=== PATIENT | female | born 1985 | race Caucasian/White ===

== ENCOUNTER 2016-08-14 14:01 | Outpatient (CLI) | payer BC ==
[~2016-08-14] VITALS: Ht 160 cm; Wt 96.7 kg
[~2016-08-14 14:01] MED LIST: AMLO10TA4 PO; ASPI-586 PO; FOLI0.4T2 PO; HYDR-3714 PO; IBUP-1773 PO; LABE100T2 PO; LBT200T PO; METO25TA PO; MULT-974 PO; OMG1KC PO
[2016-08-14 14:10] VITALS: BP 138/89
== END 2016-08-14 14:30 | disposition home or self-care (01) ==
LOC: PREOP 14:01
PROVIDERS: ATTEND Obstetrics & Gynecology
DX: Z01.818 Encounter for other preprocedural examination (principal); Z11.2 Encounter for screening for other bacterial diseases; O34.211 Maternal care for low transverse scar from previous cesarean delivery; O24.419 Gestational diabetes mellitus in pregnancy, unspecified control
CPT/HCPCS: 87081

== ENCOUNTER 2016-08-18 06:13 | Inpatient (IN) | payer BC ==
[~2016-08-18] VITALS: Ht 160 cm; Wt 96.7 kg
[~2016-08-18 06:13] MED LIST changes: +CITRIC ACID/SOB CIT (BICITRA) 30 ML UDC ONE; +FAMOTIDINE 20MG/2ML IV (PEPCID) ONE; +LACTATED RINGERS 2,000 ML IV ONE; +METOCLOPRAMIDE INJ 10 MG/2 ML (REGLAN) ONE; +NORMAL SALINE (BAXTER MINI) 50 ML IV ONE; +ceFAZolin 1,000 MG (ANCEF) VIAL ONE
[2016-08-18 06:20] VITALS: BP 135/89
[2016-08-18] MEDS ORDERED: LACTATED RINGERS 1,000 ML IV SCH (06:23)
[2016-08-18] MEDS ORDERED: LACTATED RINGERS 1,000 ML IV PRN (06:26)
[2016-08-18] MEDS ORDERED: METOCLOPRAMIDE INJ 10 MG/2 ML (REGLAN) IV ONE (06:30)
[2016-08-18] MEDS ORDERED: CITRIC ACID/SOB CIT (BICITRA) 30 ML UDC PO ONE (06:30)
[2016-08-18] MEDS ORDERED: FAMOTIDINE 20MG/2ML IV (PEPCID) IV ONE (06:30)
[2016-08-18 06:40] VITALS: BP 131/89
[2016-08-18 06:45] LABS: BILIRUBIN,URINE NEGATIVE (NEGATIVE); KETONES,URINE 3+ (NEGATIVE); LEUKOCYTE ESTERASE ,URINE 1+ (NEGATIVE); NITRITE,URINE NEGATIVE (NEGATIVE); PH,URINE 6 (5-9); PROTEIN,URINE 1+ (NEGATIVE); UROBILINOGEN,URINE NORMAL (NORMAL)
[2016-08-18 06:50] LABS: BASOPHILS % (AUTO) 0 % (0-10); EOSINOPHILS # (AUTO) 0.1 10^3/uL (0.0-0.3); EOSINOPHILS % (AUTO) 2 % (0-10); LYMPHOCYTES # (AUTO) 1.9 X 10^3 (1.0-4.0); LYMPHOCYTES % (AUTO) 35 % (12-44); MEAN CORPUSCULAR HEMOGLOBIN 29 PG (25-34); MEAN CORPUSCULAR HGB CONC 35 G/DL (32-36); MEAN CORPUSCULAR VOLUME 83 FL (80-99); MONOCYTES # (AUTO) 0.5 X 10^3 (0.0-1.0); MONOCYTES % (AUTO) 9 % (0-12); NEUTROPHILS % (AUTO) 55 % (42-75); PLATELET COUNT 255 10^3/uL (130-400); RED CELL DISTRIBUTION WIDTH 13.1 % (10.0-14.5); WHITE BLOOD COUNT 5.4 10^3/uL (4.3-11.0)
[2016-08-18] MEDS ORDERED: morphine PF (DURAMORPH) 10 MG/10 ML AMP ONE (07:12)
[2016-08-18] MEDS ORDERED: fentaNYL INJECTION 100 MCG/2 ML AMP ONE (07:12)
--- NOTE | 2016-08-18 07:33 | Progress Note-Pre Operative ---
Pre-Operative Progress Note H&P Reviewed The H&P was reviewed, patient examined and no changes noted. Date H&P Reviewed: Aug 18, 2016 Time H&P Reviewed: 07:25 Pre-Operative Diagnosis: Previous section, gdmA1 RUSSEL SIMPSON DO Aug 18, 2016 07:33
[2016-08-18] MEDS ORDERED: KETOROLAC 30 MG/ML VIAL ONE (08:24)
[2016-08-18] MEDS ORDERED: OXYTOCIN/NORMAL SALINE 500 ML IV ONE ×2 (08:24→08:41)
[2016-08-18] MEDS: KETOROLAC 30 MG/ML VIAL IVP SCH ×3 (08:30→20:30)
[2016-08-18] MEDS ORDERED: OXYTOCIN/NORMAL SALINE 500 ML IV SCH (08:44)
[2016-08-18] MEDS ORDERED: MEASLES,MUMPS,RUBELLA 1 EA INJ SC SCH (08:45)
[2016-08-18] MEDS ORDERED: TETANUS,DIPTH,PERTUSS P/F (BOOSTRIX) 0.5 ML VIAL IM SCH (08:45)
[2016-08-18] MEDS ORDERED: LACTATED RINGERS 1,000 ML IV ONE (08:53)
[2016-08-18] MEDS ORDERED: fentaNYL INJECTION 100 MCG/2 ML AMP INJ ONE (09:00)
[2016-08-18] MEDS ORDERED: ONDANSETRON 4 MG/2 ML (SDV) Z0FRAN IV PRN (09:00)
[2016-08-18] MEDS ORDERED: NALOXONE 0.4 MG/ML 1 ML (NARCAN) VIAL IV PRN (09:00)
[2016-08-18] MEDS ORDERED: morphine PF (DURAMORPH) 10 MG/10 ML AMP INJ ONE (09:00)
--- NOTE | 2016-08-18 09:04 | Cesarean Section Operative ---
Procedure Procedure Note Pre-operative Diagnosis: Virgilio Phan is a 31 /Para 2 /1 ,Gestational Age 39 + weeks, previous section, GBS A1 Post-operative Diagnosis: same Procedure: Primary low transverse section Physician: RUSSEL SIMPSON Truant Officer: Niurka Bragg APRN; Abelardo Austin, MS III Estimated blood loss: 500 mL Disposition: stable Findings: Viable female infant, Apgars 9/9, weight 6#10 oz, intact placenta, 3vc, normal appearing uterus, tubes, and ovaries. Indications:Virgilio Phan is a 31 /Para 2 /1 ,Gestational Age 39 + weeks, previous section, GBS A1 Procedure Details: The patient was seen in pre-op and the procedure was discussed with the patient in full, including the risks, benefits, and alternatives. All questions were answered. The patient was taken to the operating room and a time out was performed, verifying patient and procedure. After spinal anesthesia was placed by our anesthesia colleagues, the patient was placed in the dorsal supine with leftward tilt for uterine displacement.~ Her abdomen was then prepped and draped in the typical sterile fashion. A Pfannenstiel skin incision was made using a scalpel and carried down through the underlying fascia. The fascia was incised in the midline and tented up using Perry clamps. On both the inferior and superior fascia side the rectus muscle was dissected off bluntly and sharply using Razo scissors. The peritoneum was identified and entered bluntly in the midline. This was then stretched laterally using manual strength. After entering the abdominal cavity and confirming lack of intraperitoneal adhesions, a large Dany retractor was placed and the lower uterine segment was visualized. A scalpel was utilized to make a low transverse uterine incision. Amniotomy was performed with an Allis clamp with very minimal amount of clear fluid. The infant's head was grasped and brought to the level of the incision. Fundal pressure was applied and was delivered without difficulty. Mouth and nares were suctioned with bulb suction. After the umbilical cord was clamped and cut, the was handed off to the pediatric staff. A sample of cord blood was then obtained. Cord blood was now collected for cord blood banking. Tissue was taken from the cord as well for banking. The placenta was delivered intact via uterine massage. The uterus was cleared of all clots and debris. The uterine incision was closed using 0 Vicryl in a running locked fashion. A second imbricated layer was placed using 0 Vicryl in a running fashion as well. Again the hysterotomy site was examined and hemostasis was observed. The bilateral tubes and ovaries appeared normal. The abdominal gutters were cleared of all clots and debris. A final check of the uterine incision showed it to be hemostatic. The peritoneum was closed using 3- 0 Vicryl in a running fashion. The fascia was closed with 0 Vicryl in a running fashion. The subcutaneous space was hemostatic, and irrigated. The subcutaneous space was closed with 3-0 Vicryl in several single interrupted stitches. The skin was then closed using 4-0 Monocryl in a running subcuticular fashion. The skin edges were reapproximated together and were hemostatic. Sure-Seal was placed. A pressure dressing was applied. All sponge, lap and needle counts were correct at the end of the procedure per nursing. Vitals - Labs Vital Signs - I&O Vital Signs Date Time Temp Pulse Resp B/P Pulse Ox O2 Delivery O2 Flow Rate FiO2 08/18/16 06:40 92 18 131/89 Room Air 08/18/16 06:20 96.6 108 20 135/89 Room Air Labs Laboratory Tests 08/18/16 06:00: Urine Bacteria MODERATEH, Urine Bilirubin NEGATIVE, Urine Casts NONE, Urine Clarity SLIGHTLY CLOUDY, Urine Color YELLOW, Urine Crystals NONE, Urine Culture Indicated YES, Urine Glucose (UA) NEGATIVE, Urine Ketones 3+H, Urine Leukocyte Esterase 1+H, Urine Mucus SMALLH, Urine Nitrite NEGATIVE, Urine Protein 1+H, Urine RBC NONE, Urine RBC (Auto) NEGATIVE, Urine Specific [place] 1.025H, Urine Squamous Epithelial Cells 10-25H, Urine Urobilinogen NORMAL, Urine WBC 5-10H, Urine pH 6 08/18/16 06:37: Glucometer 94 08/18/16 06:40: Basophils # (Auto) 0.0, Basophils (%) (Auto) 0, Eosinophils # (Auto) 0.1, Eosinophils (%) (Auto) 2, Hematocrit 38, Hemoglobin 13.2, Lymphocytes # (Auto) 1.9, Lymphocytes (%) (Auto) 35, Mean Corpuscular Hemoglobin 29, Mean Corpuscular Hemoglobin Concent 35, Mean Corpuscular Volume 83, Mean Platelet Volume 10.0, Monocytes # (Auto) 0.5, Monocytes (%) (Auto) 9, Neutrophils # (Auto ) 3.0, Neutrophils (%) (Auto) 55, Platelet Count 255, Red Blood Count 4.60, Red Cell Distribution Width 13.1, White Blood Count 5.4 RUSSEL SIMPSON DO Aug 18, 2016 09:04
[2016-08-18] MEDS ORDERED: HYDR-3812 PO (09:07)
[2016-08-18] MEDS ORDERED: IBUP-1773 PO (09:07)
[2016-08-18] MEDS ORDERED: DOCU100C37 PO (09:07)
[2016-08-18 09:10] VITALS: BP 121/79
[2016-08-18 10:30] VITALS: BP 119/80
[2016-08-18] MEDS ORDERED: PROMETHAZINE INJ 25 MG/ML (PHENERGAN) AMP IVP ONE (11:45)
[2016-08-18] MEDS: NS IV 1000 ML 1,000 ML IV SCH ×2 (13:26→20:30)
[2016-08-18] MEDS ORDERED: CATHETER FLUSH 10 ML SYR IV SCH ×2 (14:00)
[2016-08-18] MEDS ORDERED: ceFAZolin INJECTION 1,000 MG in NORMAL SALINE (BAXTER MINI) 50 ML IV SCH (14:30)
[2016-08-18 15:00] VITALS: BP 120/68
[2016-08-18] MEDS: HYDROcodone/APAP 5 MG/325 MG (LORTAB) TAB PO PRN ×2 (15:18→20:30)
[2016-08-18 20:08] VITALS: BP 115/74
[2016-08-18] MEDS: DOCUSATE SODIUM 100 MG (COLACE) CAP PO SCH (20:30)
[2016-08-19 02:16] VITALS: BP 109/57
[2016-08-19] MEDS: HYDROcodone/APAP 5 MG/325 MG (LORTAB) TAB PO PRN ×5 (03:23→22:30)
[2016-08-19] MEDS: KETOROLAC 30 MG/ML VIAL IVP SCH (03:23)
[2016-08-19 05:26] LABS: BASOPHILS % (AUTO) 0 % (0-10); EOSINOPHILS # (AUTO) 0.2 10^3/uL (0.0-0.3); EOSINOPHILS % (AUTO) 2 % (0-10); LYMPHOCYTES # (AUTO) 1.4 X 10^3 (1.0-4.0); LYMPHOCYTES % (AUTO) 20 % (12-44); MEAN CORPUSCULAR HEMOGLOBIN 29 PG (25-34); MEAN CORPUSCULAR HGB CONC 33 G/DL (32-36); MEAN CORPUSCULAR VOLUME 86 FL (80-99); MEAN PLATELET VOLUME 9.9 FL (7.4-10.4); MONOCYTES # (AUTO) 0.6 X 10^3 (0.0-1.0); MONOCYTES % (AUTO) 9 % (0-12); NEUTROPHILS # (AUTO) 4.7 X 10^3 (1.8-7.8); NEUTROPHILS % (AUTO) 69 % (42-75); PLATELET COUNT 193 10^3/uL (130-400); RED CELL DISTRIBUTION WIDTH 13.3 % (10.0-14.5); WHITE BLOOD COUNT 6.9 10^3/uL (4.3-11.0)
[2016-08-19 05:28] VITALS: BP 122/81
[2016-08-19 08:16] VITALS: BP 121/79
--- NOTE | 2016-08-19 08:16 | Postpartum Progress Note ---
Post Op Post-operative Day #1 s/p RLTCS, gest diabetes, A1, oligohydramnios Subjective: Patient is without complaints. Ambulating, voiding after toure removed. Tolerating a regular diet without nausea or vomiting. Normal lochia. Pain is well controlled with oral pain medications. Passing flatus. Breast feeding. Objective: Vital Sign - Last 24 Hours 08/18/16 08/18/16 08/18/16 08/18/16 09:10 10:30 15:00 18:40 Temp 97.8 97.6 99.2 Pulse 59 65 76 Resp 18 18 18 B/P 121/79 119/80 120/68 Pulse Ox 100 100 97 O2 Delivery Room Air Room Air Room Air Room Air 08/18/16 08/19/16 08/19/16 20:08 02:16 05:28 Temp 99.2 97.2 97.6 Pulse 81 61 89 Resp 18 18 18 B/P 115/74 109/57 122/81 Pulse Ox 100 98 98 O2 Delivery Room Air Room Air Room Air Intake and Output 08/18/16 08/18/16 08/19/16 15:00 23:00 07:00 Intake Total 1550 ml 2250 ml 1300 ml Output Total 350 ml 500 ml Balance 1550 ml 1900 ml 800 ml Laboratory Tests Test 08/19/16 05:10 08/19/16 06:56 Range/Units Basophils # (Auto) 0.0 0.0-0.1 10^3/uL Basophils (%) (Auto) 0 0-10 % Eosinophils # (Auto) 0.2 0.0-0.3 10^3/uL Eosinophils (%) (Auto) 2 0-10 % Hematocrit 32 L 35-52 % Hemoglobin 10.6 L 11.5-16.0 G/DL Lymphocytes # (Auto) 1.4 1.0-4.0 X 10^3 Lymphocytes (%) (Auto) 20 12-44 % Mean Corpuscular Hemoglobin 29 25-34 PG Mean Corpuscular Hemoglobin Concent 33 32-36 G/DL Mean Corpuscular Volume 86 80-99 FL Mean Platelet Volume 9.9 7.4-10.4 FL Monocytes # (Auto) 0.6 0.0-1.0 X 10^3 Monocytes (%) (Auto) 9 0-12 % Neutrophils # (Auto) 4.7 1.8-7.8 X 10^3 Neutrophils (%) (Auto) 69 42-75 % Platelet Count 193 130-400 10^3/uL Red Blood Count 3.70 L 4.35-5.85 10^6/uL Red Cell Distribution Width 13.3 10.0-14.5 % White Blood Count 6.9 4.3-11.0 10^3/uL Glucometer 93 70-110 MG/DL Physical Exam: General - Alert and oriented, no apparent distress Abdomen - Soft, appropriately tender to palpation, non-distended, fundus firm at umbilicus Incision - clean, dry and intact; no erythema or induration, no drainage Extremities - no edema, negative Rosa's bilaterally Assessment: 1. post-operative day # 1, status post RLTCO. Recovering well, hemodynamically stable 2. Acute blood loss anemia - stable,iron replaced Plan: Routine post-operative care. Encourage breast feeding. Encourage ambulation. VTE prophylaxis: SCDs. Ferrous sulfate supplementation. Plan for discharge tomorrow Vitals - Labs Vital Signs - I&O Vital Signs Date Time Temp Pulse Resp B/P Pulse Ox O2 Delivery O2 Flow Rate FiO2 08/19/16 05:28 97.6 89 18 122/81 98 Room Air 08/19/16 02:16 97.2 61 18 109/57 98 Room Air 08/18/16 20:08 99.2 81 18 115/74 100 Room Air 08/18/16 18:40 Room Air 08/18/16 15:00 99.2 76 18 120/68 97 Room Air 08/18/16 10:30 97.6 65 18 119/80 100 Room Air 08/18/16 09:10 97.8 59 18 121/79 100 Room Air I & O 08/19/16 07:00 Intake Total 5100 ml Output Total 850 ml Balance 4250 ml Labs Laboratory Tests 08/19/16 05:10: Basophils # (Auto) 0.0, Basophils (%) (Auto) 0, Eosinophils # (Auto) 0.2, Eosinophils (%) (Auto) 2, Hematocrit 32L, Hemoglobin 10.6L, Lymphocytes # (Auto ) 1.4, Lymphocytes (%) (Auto) 20, Mean Corpuscular Hemoglobin 29, Mean Corpuscular Hemoglobin Concent 33, Mean Corpuscular Volume 86, Mean Platelet Volume 9.9, Monocytes # (Auto) 0.6, Monocytes (%) (Auto) 9, Neutrophils # (Auto ) 4.7, Neutrophils (%) (Auto) 69, Platelet Count 193, Red Blood Count 3.70L, Red Cell Distribution Width 13.3, White Blood Count 6.9 08/19/16 06:56: Glucometer 93 RUSSEL SIMPSON DO Aug 19, 2016 08:16
[2016-08-19] MEDS: DOCUSATE SODIUM 100 MG (COLACE) CAP PO SCH ×3 (08:56→22:29)
[2016-08-19] MEDS: IBUPROFEN 600 MG (MOTRIN) TAB PO SCH ×5 (08:57→23:42)
--- NOTE | 2016-08-19 11:53 | Anesthesia-Regional Post-Op ---
Regional Patient Condition Mental Status: Alert, Oriented x3 Circulation: Same as Pre-Op Headache: Absent Sensation: Full Recovery Motor Block: Absent Post Op Complications Complications None Follow Up Care/Instructions Patient Instructions None needed. Anesthesia/Patient Condition Patient is doing well, no complaints, stable vital signs, no apparent adverse anesthesia problems. No complications reported per nursing. NAOMY LONDONO CRNA Aug 19, 2016 11:53
[2016-08-19 15:16] VITALS: BP 131/81
--- NOTE | 2016-08-19 19:31 | Discharge Inst-Women's Service ---
Discharge Inst-Women's Serv Depart Medication/Instructions New, Converted or Re-Newed RX: RX on Chart Instructions no lifting over 25 lbs until released Final Diagnosis previous section GDM A1 oligohydramnios palpitations history of elevtqed blood pressures Consults/Follow Up Additional Follow Up: Yes (1-2weeks Adrian/Niurka 6 weeks (needs 2 hour glucola with 75 gram load)) Activity Activity: Activity as Tolerated Driving Instructions: No Driving for 1 Week NO SMOKING: NO SMOKING Nothing Inside Vagina: No Douching, No [place], No Tampons Diet Discharge Diet: No Restrictions Symptoms to Report to : Swelling Increased, Bleeding Excessive, Pain Increased, Fever Over 101 Degrees F, Vaginal Bleeding Increase, Cramps in Feet or Legs, Vaginal Discharge Foul For Any Problems or Questions: Contact Your Physician Skin/Wound Care Infection Signs and Symptoms: Increased Redness, Foul Odor of Wound, Increased Drainage, Skin Itchy or Has a Rash, Increased Swelling, Temperature Above 101 F Operative Area Clean and Dry: Keep Incision Clean/Dry Stitches/Sherry/Dermabond: Dermabond Bathing Instructions: RUSSEL Trejo DO Aug 19, 2016 19:31
[2016-08-19 22:30] VITALS: BP 129/86
[2016-08-20] MEDS: HYDROcodone/APAP 5 MG/325 MG (LORTAB) TAB PO PRN ×2 (02:30→08:35)
[2016-08-20 04:47] VITALS: BP 137/92
[2016-08-20] MEDS: IBUPROFEN 600 MG (MOTRIN) TAB PO SCH ×2 (04:47→10:43)
[2016-08-20] MEDS ORDERED: FERROUS SULF 325 MG (IRON) TAB PO SCH (07:00)
[2016-08-20 08:30] VITALS: BP 132/88
[2016-08-20] MEDS ORDERED: FERR-74 PO (08:32)
[2016-08-20] MEDS: DOCUSATE SODIUM 100 MG (COLACE) CAP PO SCH (08:33)
--- NOTE | 2016-08-20 08:33 | Postpartum Progress Note ---
Post Op Post-operative Day #2 Subjective: Patient is without complaints. Ambulating, voiding after toure removed. Tolerating a regular diet without nausea or vomiting. Normal lochia. Pain is well controlled with oral pain medications. Passing flatus. Breast feeding. Objective: VS - Last 72 Hours, by Label 08/18/16 08/18/16 08/18/16 08/18/16 06:20 06:40 09:10 10:30 Temp 96.6 97.8 97.6 Pulse 108 92 59 65 Resp 20 18 18 18 B/P 135/89 131/89 121/79 119/80 Pulse Ox 100 100 O2 Delivery Room Air Room Air Room Air Room Air 08/18/16 08/18/16 08/18/16 08/19/16 15:00 18:40 20:08 02:16 Temp 99.2 99.2 97.2 Pulse 76 81 61 Resp 18 18 18 B/P 120/68 115/74 109/57 Pulse Ox 97 100 98 O2 Delivery Room Air Room Air Room Air Room Air 08/19/16 08/19/16 08/19/16 08/19/16 05:28 08:16 15:16 22:30 Temp 97.6 98.2 97.8 97.8 Pulse 89 69 76 78 Resp 18 18 18 18 B/P 122/81 121/79 131/81 129/86 Pulse Ox 98 100 99 O2 Delivery Room Air Room Air Room Air Room Air 08/20/16 04:47 Temp 97.5 Pulse 97 Resp 18 B/P 137/92 Pulse Ox 98 O2 Delivery Room Air Physical Exam: General - Alert and oriented, no apparent distress Abdomen - Soft, appropriately tender to palpation, non-distended, fundus firm at umbilicus Incision - clean, dry and intact; no erythema or induration, no drainage Extremities - 1+ pitting pedal edema, negative Rosa's bilaterally no new labs Assessment: 31 y/o post-operative day # 2, status post RLTCS. Recovering well, hemodynamically stable Acute blood loss anemia Hgb 10.6 Plan: Routine post-operative care. Encourage breast feeding. Encourage ambulation. VTE prophylaxis: SCDs. Ferrous sulfate supplementation. Plan for discharge today, f/u with Dr. Campbell in 1-2 weeks Vitals - Labs Vital Signs - I&O Vital Signs Date Time Temp Pulse Resp B/P Pulse Ox O2 Delivery O2 Flow Rate FiO2 08/20/16 04:47 97.5 97 18 137/92 98 Room Air 08/19/16 22:30 97.8 78 18 129/86 99 Room Air 08/19/16 15:16 97.8 76 18 131/81 Room Air I & O 08/20/16 07:00 Intake Total 3000 ml Output Total 3400 ml Balance -400 ml Labs Microbiology 08/18/16 Urine Culture - Preliminary, Resulted JN SAHU MD Aug 20, 2016 08:33
[2016-08-20 11:10] VITALS: BP 132/88
== END 2016-08-20 11:10 | disposition home or self-care (01) | DRG 765 ==
LOC: LDRP 06:13
PROVIDERS: ADMIT Obstetrics & Gynecology; ATTEND Obstetrics & Gynecology
PROC: 10D00Z1 Extraction of Products of Conception, Low, Open Approach (ICD-10-PCS; principal; 2016-08-18 07:36)
DX: O34.211 Maternal care for low transverse scar from previous cesarean delivery (principal); O41.03X0 Oligohydramnios, third trimester, not applicable or unspecified; O90.81 Anemia of the puerperium; D62 Acute posthemorrhagic anemia; O24.419 Gestational diabetes mellitus in pregnancy, unspecified control; Z3A.39 39 weeks gestation of pregnancy; Z37.0 Single live birth
CPT/HCPCS: 36415; 81000; 82962; 85025; 86850; 86900; 86901; 87088; 94664

== ENCOUNTER → 2017-12-31 | Outpatient (CLI) | payer BC ==
[~2017-12-31] MED LIST changes: +ACHD5005 PO; -CITRIC ACID/SOB CIT (BICITRA) 30 ML UDC ONE; +DOCU100C37 PO; -FAMOTIDINE 20MG/2ML IV (PEPCID) ONE; +FERR325T18 PO; -LACTATED RINGERS 2,000 ML IV ONE; -METOCLOPRAMIDE INJ 10 MG/2 ML (REGLAN) ONE; -NORMAL SALINE (BAXTER MINI) 50 ML IV ONE; -ceFAZolin 1,000 MG (ANCEF) VIAL ONE
--- NOTE | 2017-12-31 16:31 | Diagnostic Imaging Report ---
INDICATION: Right knee pain. EXAMINATION: AP, oblique and lateral views of the right knee were obtained. FINDINGS: No fracture or acute bony abnormality is seen. Joint spaces are unremarkable. There is no overt joint effusion. IMPRESSION: Negative right knee. Dictated by: Dictated on workstation # [id number]
== END ==
LOC: RAD 15:10
PROVIDERS: ATTEND Nurse Practitioner Family
DX: M25.561 Pain in right knee (principal)
CPT/HCPCS: 73562

== ENCOUNTER → 2018-01-07 | Outpatient (CLI) | payer BC ==
--- NOTE | 2018-01-07 17:45 | Diagnostic Imaging Report ---
PROCEDURE: MRI right joint lower extremity without contrast. TECHNIQUE: Multiplanar, multisequence non contrast-enhanced MRI of the right lower extremity was accomplished. INDICATION: Six-week status post right knee injury. Pain. FINDINGS: The cruciate ligaments are intact. No meniscal tear is seen. The collateral ligaments are normal. There is a 13 mm cyst seen posterior to the femur, superior to the origin of the ACL. This could be a ganglion cyst. There is no acute bony abnormality. There is no joint effusion. There is no muscle mass or edema. IMPRESSION: There is a cyst posterior to the distal femur which is not the expected location of a popliteal cyst. This could be a ganglion cyst. No tear is seen. Dictated by: Dictated on workstation # [id number]
== END ==
LOC: RAD 15:32
PROVIDERS: ATTEND Nurse Practitioner Family
DX: M25.861 Other specified joint disorders, right knee (principal)
CPT/HCPCS: 73721

== ENCOUNTER → 2018-07-19 | Outpatient (CLI) | payer BC ==
[2018-07-19 09:42] LABS: HEMOGLOBIN 14.9 G/DL (11.5-16.0); MEAN PLATELET VOLUME 9.5 FL (7.4-10.4); RED BLOOD COUNT 4.93 10^6/uL (4.35-5.85); RED CELL DISTRIBUTION WIDTH 12.4 % (10.0-14.5); WHITE BLOOD COUNT 3.1 10^3/uL (4.3-11.0)
[2018-07-19 09:58] LABS: ALANINE AMINOTRANSFERASE 18 U/L (0-55); ALBUMIN 4.6 GM/DL (3.2-4.5); ALKALINE PHOSPHATASE 49 U/L (40-136); BILIRUBIN,TOTAL 0.7 MG/DL (0.1-1.0); BUN/CREATININE RATIO 19; CALCIUM 9.6 MG/DL (8.5-10.1); CARBON DIOXIDE 26 MMOL/L (21-32); CHLORIDE 106 MMOL/L (98-107); CREATININE SERUM 0.81 MG/DL (0.60-1.30); GFR ESTIMATED > 60; GLUCOSE 64 MG/DL (70-105); SODIUM 140 MMOL/L (135-145); TOTAL PROTEIN 7.3 GM/DL (6.4-8.2)
--- NOTE | 2018-07-19 10:12 | Diagnostic Imaging Report ---
INDICATION: Kidney infection. EXAMINATION: KUB at 10:17 AM. FINDINGS: The bowel gas pattern is normal. There are some calcifications in the pelvis which are probably phleboliths. There are no masses seen. There is no appreciable calculus projecting over either kidney. IMPRESSION: Unremarkable abdomen. Dictated by: Dictated on workstation # [id number]
== END ==
LOC: RAD 09:21
PROVIDERS: ATTEND Nurse Practitioner Family
DX: N39.0 Urinary tract infection, site not specified (principal)
CPT/HCPCS: 36415; 74018; 80053; 84703; 85027

== ENCOUNTER → 2018-11-04 | Outpatient (CLI) | payer BC ==
[2018-11-04 11:15] LABS: BILIRUBIN,URINE NEGATIVE (NEGATIVE); CLARITY,URINE CLEAR; COLOR,URINE YELLOW; GLUCOSE, URINE (UA) NEGATIVE (NEGATIVE); KETONES,URINE NEGATIVE (NEGATIVE); LEUKOCYTE ESTERASE ,URINE 1+ (NEGATIVE); NITRITE,URINE NEGATIVE (NEGATIVE); PROTEIN,URINE NEGATIVE (NEGATIVE); UROBILINOGEN,URINE NORMAL (NORMAL)
[2018-11-04 11:25] LABS: BACTERIA,URINE NEGATIVE /HPF; PH,URINE 8 (5-9); WBC,URINE 0-2 /HPF
--- NOTE | 2018-11-04 11:55 | Diagnostic Imaging Report ---
PROCEDURE: US Non-ob pelvis comp/trans. TECHNIQUE: Multiple realtime grayscale images were obtained of the pelvis in various projections endovaginally. Transabdominal imaging was also performed. INDICATION: Abdominal pain and missed period. Uterus measures 5.0 x 4.7 x 3.3 cm. Endometrium is 3 mm in thickness. The uterus is retroverted. No myometrial mass is seen. The right ovary was not visualized due to bowel gas. Left ovary measures 3.0 x 2.2 x 1.9 cm. The left ovary contains a 12 mm follicle. There is blood flow to the left ovary. No free fluid is seen. IMPRESSION: Nonvisualized right ovary. The study is otherwise unremarkable. Dictated by: Dictated on workstation # [id number]
== END ==
LOC: RAD 10:09
PROVIDERS: ATTEND Nurse Practitioner Family
DX: N91.2 Amenorrhea, unspecified (principal); R30.0 Dysuria
CPT/HCPCS: 76830; 76856; 81000

== ENCOUNTER → 2018-11-10 | Outpatient (CLI) | payer BC ==
--- NOTE | 2018-11-10 09:02 | Diagnostic Imaging Report ---
EXAM: RIGHT UPPER QUADRANT ULTRASOUND. DATE: November 10, 2018. COMPARISON: None. INDICATION: 33-year-old female, abdominal pain, nausea. PROCEDURE: Two-dimensional grayscale and color doppler ultrasound examination of the right upper quadrant was performed. FINDINGS: Liver: The liver is of normal size and echotexture without solid or cystic masses. The main portal vein is patent with normal directional flow. Bile ducts and gallbladder: There is a very small amount of echogenic material within the gallbladder lumen without associated shadowing which may relate to a small amount of sludge. The gallbladder is not distended. There is no pericholecystic fluid. There is no gallbladder wall thickening. The gallbladder wall measures 0.2 cm. There is no intrahepatic or extrahepatic biliary ductal dilation. The common bile duct measures 0.3 cm. Right kidney: Unremarkable right kidney. No hydronephrosis. The right kidney measures 11.4 cm x 4.4 cm x 4.7 cm. Pancreas: Normal visualized pancreas. IMPRESSION: 1. Very small amount of sludge within the gallbladder. No evidence of acute cholecystitis. 2. No biliary ductal dilation. 3. Additional right upper quadrant ultrasound evaluation is unremarkable. Dictated by: Dictated on workstation # [id number]
== END ==
LOC: RAD 07:35
PROVIDERS: ATTEND Nurse Practitioner Family
DX: K82.8 Other specified diseases of gallbladder (principal); R10.9 Unspecified abdominal pain
CPT/HCPCS: 76705

== ENCOUNTER 2018-11-15 07:11 | Outpatient (CLI) | payer BC ==
[~2018-11-15] VITALS: Ht 160 cm; Wt 54.4 kg
[2018-11-15] MEDS ORDERED: OMG1KC PO (10:48)
[2018-11-15] MEDS ORDERED: MULT-609 PO (10:48)
[2018-11-16] MEDS ORDERED: HYDR-3812 PO (10:08)
== END 2018-11-15 10:58 | disposition home or self-care (01) ==
LOC: PREOP 07:11
PROVIDERS: ATTEND Surgery
DX: Z01.818 Encounter for other preprocedural examination (principal)

== ENCOUNTER 2018-11-16 08:20 | Day surgery (SDC) | payer BC ==
[~2018-11-16] VITALS: Ht 160 cm; Wt 54.4 kg
[~2018-11-16 08:20] MED LIST changes: +MULT-609 PO
[2018-11-16] MEDS ORDERED: LEVOFLOXACIN 500 MG/100 ML IV 100 ML ONE (08:31)
[2018-11-16 08:45] VITALS: BP 111/79
--- OUTSIDE RECORDS SUMMARY | 2018-11-16 08:47 | XMS REPORT | CCD ---
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 Name Role Phone Leonor Cabral PP Unavailable CCM Unavailable Summary Purpose Interface Exchange Insurance Providers Payer name Policy type / Coverage type Covered green party ID Effective Begin Date Effective End Date [place] [employer] [facility] [id number] 2016 Unknown Family history Mother Diagnosis Age At Onset Arthritis Unknown Sister Diagnosis Age At Onset Hypertension Unknown Anemia Unknown Hyperlipidemia Unknown Father Diagnosis Age At Onset Heart disease Unknown Hyperlipidemia Unknown Hypertension Unknown Depression Unknown Diabetes Unknown Social History Social History Element Codes Description Effective Dates Number of children in household Unknown 2 06/10/2018 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 Number of children Unknown 2 10/13/2016 Marital status Unknown 11/14/2013 Living arrangements Unknown House 11/14/[address]: 196544513 Never smoker 11/14/[address]: 663513694 Never drinks alcohol 11/14/2013 Allergies, Adverse Reactions, Alerts Substance Reaction Codes Entered Date Inactivated Date Status clindamycin HCl hives RxNorm: 2582 11/14/2013 No Inactive Date Active bactrim RxNorm: 687409 08/05/2018 No Inactive Date Active PENICILLINS rash Unknown 11/14/2013 No Inactive Date Active Past Medical History Illness Codes Condition Status Onset Date Resolved Date Gas pain ICD-9: 787.3 ICD-10: R14.1 Active 11/04/2018 Unknown Generalized abdominal pain ICD-9: 789.07 ICD-10: R10.84 Active 11/04/2018 Unknown Secondary amenorrhea ICD-9: 626.0 ICD-10: N91.1 Active 11/04/2018 Unknown Urinary tract infection, site not specified ICD-9: 599.0 ICD-10: N39.0 Active 07/19/2018 Unknown Right upper quadrant pain ICD-9: 789.01 ICD-10: R10.11 Active 07/19/2018 Unknown Encounter for general adult medical examination without abnormal findings ICD-9: V70.0 ICD-10: Z00.00 Active 10/13/2016 Unknown Pain in right knee ICD -9: 719.46 ICD-10: M25.561 Active 12/08/2017 Unknown Essential (primary) hypertension ICD-9: 401.9 ICD-10: I10 Active 10/13/2016 Unknown Impaired fasting glucose ICD-9: 790.21 ICD-10: R73.01 Active 10/13/2016 Unknown Personal history of gestational diabetes ICD-9: V12.21 ICD-10: Z86.32 Active 10/13/2016 Unknown Rash ICD-9: 782.1 Active 10/03/2014 Unknown COUGH ICD-9: 786.2 Active 08/31/2014 Unknown FEVER NOS ICD-9: 780.60 Active 08/31/2014 Unknown Influenza ICD-9: 487.1 Active 08/31/2014 Unknown BENIGN ADDISON SKIN TRUNK ICD-9: 216.5 Active 02/14/2014 Unknown Changing skin lesion ICD-9: 709.9 Active 02/14/2014 Unknown Hypertension Unknown Active 11/14/2013 Unknown ESSENTIAL HYPERTENSION ICD-9: 401.9 Active 11/14/2013 Unknown Mole of skin ICD-9: 216.9 Active 11/14/2013 Unknown Problems Condition Codes Effective Dates Condition Status Gas pain ICD-9: 787.3 ICD-10: R14.1 11/04/2018 Active Generalized abdominal pain ICD-9: 789.07 ICD-10: R10.84 11/04/2018 Active Secondary amenorrhea ICD-9: 626.0 ICD-10: N91.1 11/04/2018 Active Urinary tract infection, site not specified ICD-9: 599.0 ICD-10: N39.0 07/19/2018 Active Right upper quadrant pain ICD-9: 789.01 ICD-10: R10.11 07/19/2018 Active Encounter for general adult medical examination without abnormal findings ICD-9: V70.0 ICD-10: Z00.00 10/13/2016 Active Pain in right knee ICD -9: 719.46 ICD-10: M25.561 12/08/2017 Active Essential (primary) hypertension ICD-9: 401.9 ICD-10: I10 10/13/2016 Active Impaired fasting glucose ICD-9: 790.21 ICD-10: R73.01 10/13/2016 Active Personal history of gestational diabetes ICD-9: V12.21 ICD-10: Z86.32 10/13/2016 Active Rash ICD-9: 782.1 10/03/2014 Active COUGH ICD-9: 786.2 08/31/2014 Active FEVER NOS ICD-9: 780.60 08/31/2014 Active Influenza ICD-9: 487.1 08/31/2014 Active BENIGN ADDISON SKIN TRUNK ICD-9: 216.5 02/14/2014 Active Changing skin lesion ICD-9: 709.9 02/14/2014 Active Hypertension Unknown 11/14/2013 Active ESSENTIAL HYPERTENSION ICD-9: 401.9 11/14/2013 Active Mole of skin ICD-9: 216.9 11/14/2013 Active Medications Medication Codes Instructions Start Date Stop Date Status Fill Instructions Bactrim DS 800 mg-160 mg tablet RxNorm: 004977 1 Tablet(s) PO BID 07/29/2018 08/04/2018 Inactive take probiotic BID while on abx Bactrim DS 800 mg-160 mg tablet RxNorm: 444082 1 Tablet(s) PO BID 07/29/2018 07/28/2018 Inactive Voltaren 1 % topical gel RxNorm: 658756 4 Gram(s) TOP QID 12/0812/17/2017 Inactive metoprolol succinate ER 25 mg tablet,extended release 24 hr RxNorm: 139158 Tablet (s) 1/2 TABLET(S) PO DAILY 12/08/2017 Inactive metoprolol succinate ER 25 mg tablet,extended release 24 hr RxNorm: 217870 Tablet (s) 1 TABLET(S) PO DAILY 10/13/20162017 Inactive Tamiflu 75 mg capsule RxNorm: 955422 1 Capsule(s) PO BID 201409/04/2014 Inactive [SAVINGS FOR UNINSURED PATIENTS -- [id number], PCN: [id number], Group: [id number], ID # [id number], Process claim through mVis[employer], for questions: . THIS IS NOT INSURANCE.] metoprolol succinate ER 25 mg tablet,extended release 24 hr RxNorm: 889245 1 TABLET(S) PO DAILY 03/24/2014 09/19/2014 Inactive metoprolol succinate ER 25 mg tablet,extended release 24 hr RxNorm: 371578 1 Tablet(s) PO daily 11/14/2013 03/13/2014 Inactive Fish Oil oral RxNorm: 1263662 oral No Start Date Active folic acid oral RxNorm : 4511 oral No Start Date Active Multivitamin & Mineral Formula oral RxNorm: oral No Start Date Active magnesium 200 mg tablet RxNorm: 1 Tablet(s) PO daily No Start Date 10/12/2016 Inactive Fish Oil 1,000 mg capsule RxNorm: 1 Capsule(s) PO daily No Start Date 12/07/2017 Inactive fenugreek seed extract 500 mg capsule RxNorm: 2 Capsule(s) PO TID No Start Date 10/12/2016 Inactive Probiotic oral RxNorm : 6205 oral No Start Date 11/03/2018 Inactive labetalol 200 mg tablet RxNorm: 990368 1 Tablet(s) PO BID No Start Date 11/13/2013 Inactive Medication Administered No Medication Administered data Immunizations Vaccine Codes Date Status Influenza CVX: 141 05/04/2018 completed Influenza CVX: 141 05/02/2017 completed Diphtheria, Tetanus, Pertussis CVX: 20 completed Influenza CVX: 141 10/25/2015 completed PPD Unknown 02/21/2014 completed Assessments Condition Codes Effective Dates Generalized abdominal pain ICD-10: R10.84 ICD-9: 789.07 11/04/2018 Gas pain ICD-10: R14.1 ICD-9: 787.3 11/04/2018 Secondary amenorrhea ICD-10: N91.1 ICD-9: 626.0 11/04/2018 Urinary tract infection, site not specified ICD-10: N39.0 ICD-9: 599.0 08/05/2018 Right upper quadrant pain ICD-10: R10.11 ICD-9: 789.01 07/19/2018 Encounter for general adult medical examination without abnormal findings ICD-10: Z00.00 ICD-9: V70.0 06/10/2018 Pain in right knee ICD-10: M25.561 ICD-9: 719.46 12/08/2017 Essential (primary) hypertension ICD-10: I10 ICD-9: 401.9 10/13/2016 Impaired fasting glucose ICD-10: R73.01 ICD-9: 790.21 10/13/2016 Personal history of gestational diabetes ICD-10: Z86.32 ICD-9: V12.21 10/13/2016 Rash ICD-9: 782.1 10/03/2014 COUGH ICD-9: 786.2 08/31/2014 Influenza ICD-9: 487.1 08/31/2014 FEVER NOS ICD-9: 780.60 08/31/2014 BENIGN ADDISON SKIN TRUNK ICD-9: 216.5 2013 Changing skin lesion ICD-9: 709.9 2013 ESSENTIAL HYPERTENSION SNOMED: 18649472 ICD-9: 401.9 01/17/2014 Mole of skin ICD-9: 216.9 11/14/2013 Reason For Visit Reason For Visit Effective Dates Notes menstrual irregularity 11/04/2018 back pain 07/19/2018 well woman exam (18-39 years) 06/10/2018 knee pain 12/08/2017 well woman exam (18-39 years) 10/13/2016 office procedure 10/03/2014 Here to have a mole removed under breast cough 08/31/2014 wound follow up 02/21/2014 removal of [place] skin lesion 02/14/2014 headache 01/17/2014 blood pressure followup 11/14/2013 Results Observation Observation Code Item Item Code Result Date Comp Metabolic Gjh918 NA 141 mEq/L 11/04/2018 Comp Metabolic Zqi539 K 4.0 mEq/L 11/04/2018 Comp Metabolic Ebq127 CL 106 mEq/L 11/04/2018 Comp Metabolic Ivm661 CO2 31.0 mEq/L 11/04/2018 Comp Metabolic Ztp738 ANION GAP 8 11/04/2018 Comp Metabolic Svk378 GLUCOSE 55 mg/dL 11/04/2018 Comp Metabolic Pxf318 Creat 0.9 mg/dL 11/04/2018 Comp Metabolic Mya161 eGFR 81 ml/min/1.73m2 11/04/2018 Comp Metabolic Sip115 BUN 21 mg/dL 11/04/2018 Comp Metabolic Lkn041 B/C Ratio 24.4 Ratio 11/04/2018 Comp Metabolic Sxi462 CALCIUM 9.4 mg/dL 11/04/2018 Comp Metabolic Bzv561 ALK PHOS 40 U/L 11/04/2018 Comp Metabolic Cqn786 AST(SGOT) 20 U/L 11/04/2018 Comp Metabolic Ilz096 ALT(SGPT) 20 U/L 11/04/2018 Comp Metabolic Jfj428 BILI T 0.6 mg/dL 11/04/2018 Comp Metabolic Qcj893 ALBUMIN 4.2 g/dL 11/04/2018 Comp Metabolic Mps872 TPRO 6.3 g/dL 11/04/2018 Comp Metabolic Sqi516 GLOB 2.1 g/dL 11/04/2018 Comp Metabolic Ygw844 A/G Ratio 2.0 Ratio 11/04/2018 Comp Metabolic Dma191 Osmo 282 mOsmo 11/04/2018 Cbc With Differential Ord2 WBC 6.80 K/ul 11/04/2018 Cbc With Differential Ord2 RBC 4.96 M/ul 11/04/2018 Cbc With Differential Ord2 HGB 15.0 g/dl 11/04/2018 Cbc With Differential Ord2 HCT 43.6 % 11/04/2018 Cbc With Differential Ord2 Neut% 23.5 % 11/04/2018 Cbc With Differential Ord2 MCV 87.9 fl 11/04/2018 Cbc With Differential Ord2 Lymph% 39.7 % 11/04/2018 Cbc With Differential Ord2 MCH 30.2 pg 11/04/2018 Cbc With Differential Ord2 [place]% 2.9 % 11/04/2018 Cbc With Differential Ord2 MCHC 34.4 pg 11/04/2018 Cbc With Differential Ord2 Eos% 33.5 % 11/04/2018 Cbc With Differential Ord2 Baso% 0.4 % 11/04/2018 Cbc With Differential Ord2 PLT 241 K/ul 11/04/2018 Cbc With Differential Ord2 RDW 12.7 % 11/04/2018 Cbc With Differential Ord2 Neut ABS# 1.59 K/ul 11/04/2018 Cbc With Differential Ord2 Lymph ABS# 2.70 K/ul 11/04/2018 Cbc With Differential Ord2 [place] ABS# 0.2 K/ul 11/04/2018 Cbc With Differential Ord2 Eos ABS# 2.3 K/ul 11/04/2018 Cbc With Differential Ord2 Baso ABS# 0.0 K/ul 11/04/2018 Tsh Ord6 TSH (3rd IS) 1.68 uIU/mL 11/04/2018 Urine Culture Ucult Preliminary NO Growth Day 1 08/07/2018 Urine Culture Ucult Complete NO Growth Day 2 08/07/2018 Comp Metabolic Fhf392 NA 139 mEq/L 06/10/2018 Comp Metabolic Oeo603 K 4.2 mEq/L 06/10/2018 Comp Metabolic Zoi502 CL 105 mEq/L 06/10/2018 Comp Metabolic Ihq856 CO2 27.0 mEq/L 06/10/2018 Comp Metabolic Ztb137 ANION GAP 11 06/10/2018 Comp Metabolic Moj530 GLUCOSE 85 mg/dL 06/10/2018 Comp Metabolic Zrf602 Creat 0.7 mg/dL 06/10/2018 Comp Metabolic Pvk628 eGFR 105 ml/min/1.73m2 06/10/2018 Comp Metabolic Xtn828 BUN 22 mg/dL 06/10/2018 Comp Metabolic Dzz377 B/C Ratio 31.9 Ratio 06/10/2018 Comp Metabolic Img530 CALCIUM 9.1 mg/dL 06/10/2018 Comp Metabolic Ybd299 ALK PHOS 39 U/L 06/10/2018 Comp Metabolic One106 AST(SGOT) 14 U/L 06/10/2018 Comp Metabolic Cun077 ALT(SGPT) 15 U/L 06/10/2018 Comp Metabolic Tzp882 BILI T 0.6 mg/dL 06/10/2018 Comp Metabolic Iwh705 ALBUMIN 4.3 g/dL 06/10/2018 Comp Metabolic Zly280 TPRO 6.2 g/dL 06/10/2018 Comp Metabolic Osp160 GLOB 1.9 g/dL 06/10/2018 Comp Metabolic Cvv922 A/G Ratio 2.2 Ratio 06/10/2018 Comp Metabolic Atn630 Osmo 280 mOsmo 06/10/2018 Cbc With Differential Ord2 WBC 3.79 K/ul 06/10/2018 Cbc With Differential Ord2 RBC 4.57 M/ul 06/10/2018 Cbc With Differential Ord2 HGB 14.1 g/dl 06/10/2018 Cbc With Differential Ord2 HCT 40.1 % 06/10/2018 Cbc With Differential Ord2 Neut% 39.0 % 06/10/2018 Cbc With Differential Ord2 MCV 87.7 fl 06/10/2018 Cbc With Differential Ord2 Lymph% 53.0 % 06/10/2018 Cbc With Differential Ord2 MCH 30.9 pg 06/10/2018 Cbc With Differential Ord2 [place]% 6.1 % 06/10/2018 Cbc With Differential Ord2 MCHC 35.2 pg 06/10/2018 Cbc With Differential Ord2 Eos% 1.6 % 06/10/2018 Cbc With Differential Ord2 PLT 216 K/ul 06/10/2018 Cbc With Differential Ord2 Baso% 0.3 % 06/10/2018 Cbc With Differential Ord2 RDW 12.4 % 06/10/2018 Cbc With Differential Ord2 Neut ABS# 1.48 K/ul 06/10/2018 Cbc With Differential Ord2 Lymph ABS# 2.01 K/ul 06/10/2018 Cbc With Differential Ord2 [place] ABS# 0.2 K/ul 06/10/2018 Cbc With Differential Ord2 Eos ABS# 0.1 K/ul 06/10/2018 Cbc With Differential Ord2 Baso ABS# 0.0 K/ul 06/10/2018 Lipid Ord30 CHOL 200 mg/dL 06/10/2018 Lipid Ord30 HDL 54.0 mg/dl 06/10/2018 Lipid Ord30 TRIG 49 mg/dL 06/10/2018 Lipid Ord30 LDL 136 mg/dL 06/10/2018 Lipid Ord30 C/HDL 3.7 Ratio 06/10/2018 Tsh Ord6 TSH (3rd IS) 1.89 uIU/mL 06/10/2018 Cbc With Differential Ord2 WBC 4.82 K/ul 10/15/2016 Cbc With Differential Ord2 RBC 4.80 M/ul 10/15/2016 Cbc With Differential Ord2 HGB 13.8 g/dl 10/15/2016 Cbc With Differential Ord2 HCT 41.0 % 10/15/2016 Cbc With Differential Ord2 Neut% 48.1 % 10/15/2016 Cbc With Differential Ord2 MCV 85.4 fl 10/15/2016 Cbc With Differential Ord2 Lymph% 42.7 % 10/15/2016 Cbc With Differential Ord2 MCH 28.8 pg 10/15/2016 Cbc With Differential Ord2 [place]% 7.1 % 10/15/2016 Cbc With Differential Ord2 MCHC 33.7 pg 10/15/2016 Cbc With Differential Ord2 Eos% 1.9 % 10/15/2016 Cbc With Differential Ord2 PLT 266 K/ul 10/15/2016 Cbc With Differential Ord2 Baso% 0.2 % 10/15/2016 Cbc With Differential Ord2 RDW 14.0 % 10/15/2016 Cbc With Differential Ord2 Neut ABS# 2.32 K/ul 10/15/2016 Cbc With Differential Ord2 Lymph ABS# 2.06 K/ul 10/15/2016 Cbc With Differential Ord2 [place] ABS# 0.3 K/ul 10/15/2016 Cbc With Differential Ord2 Eos ABS# 0.1 K/ul 10/15/2016 Cbc With Differential Ord2 Baso ABS# 0.0 K/ul 10/15/2016 Comp Metabolic Mfx722 NA 139 mEq/L 10/15/2016 Comp Metabolic Hkt161 K 4.2 mEq/L 10/15/2016 Comp Metabolic Fpp023 CL 106 mEq/L 10/15/2016 Comp Metabolic Agh867 CO2 26.0 mEq/L 10/15/2016 Comp Metabolic Jlw174 ANION GAP 11 10/15/2016 Comp Metabolic Hxd086 GLUCOSE 82 mg/dL 10/15/2016 Comp Metabolic Szh699 Creat 0.9 mg/dL 10/15/2016 Comp Metabolic Bvq277 eGFR 79 ml/min/1.73m2 10/15/2016 Comp Metabolic Rwl080 BUN 16 mg/dL 10/15/2016 Comp Metabolic Cpl548 B/C Ratio 18.0 Ratio 10/15/2016 Comp Metabolic Btw924 CALCIUM 9.1 mg/dL 10/15/2016 Comp Metabolic Hfp181 ALK PHOS 59 U/L 10/15/2016 Comp Metabolic Pcp566 AST(SGOT) 18 U/L 10/15/2016 Comp Metabolic Luv368 ALT(SGPT) 22 U/L 10/15/2016 Comp Metabolic Cfc007 BILI T 0.4 mg/dL 10/15/2016 Comp Metabolic Otd026 ALBUMIN 4.0 g/dL 10/15/2016 Comp Metabolic Tbf057 TPRO 6.3 g/dL 10/15/2016 Comp Metabolic Swf106 GLOB 2.3 g/dL 10/15/2016 Comp Metabolic Cnl144 A/G Ratio 1.8 Ratio 10/15/2016 Comp Metabolic Bzg487 Osmo 278 mOsmo 10/15/2016 %Hba1C Mao709 % HbA1c 70288-5 5.4 % 10/15/2016 %Hba1C Ovj187 Gluc Ave 108 mg/dL 10/15/2016 Tsh Ord6 hTSH II 1.45 uIU/mL 10/15/2016 Lipid Ord30 CHOL 206 mg/dL 10/15/2016 Lipid Ord30 HDL 51.0 mg/dl 10/15/2016 Lipid Ord30 TRIG 43 mg/dL 10/15/2016 Lipid Ord30 LDL 146 mg/dL 10/15/2016 Lipid Ord30 C/HDL 4.0 Ratio 10/15/2016 UA 51712 Specific [place] 1.015 DateTime(Free Text in ) UA 32023 PH 6.0 DateTime(Free Text in ) UA 00661 Protein n DateTime(Free Text in ) UA 04607 Blood trace DateTime(Free Text in ) UA 35382 Bilirubin n DateTime(Free Text in ) UA 36932 Ketones n DateTime(Free Text in ) UA 51091 Urobilinogen n DateTime(Free Text in ) UA 36169 Nitrite n DateTime(Free Text in ) UA 65311 Leukocytes n DateTime(Free Text in ) UA 71260 Glucose n DateTime(Free Text in ) Review of Systems System Result Effective Dates Constitutional recent illness 11/04/2018 Constitutional No anorexia 11/04/2018 Constitutional No night sweats 2018 Constitutional No chills 11/04/2018 Constitutional No diaphoresis 11/04/2018 Constitutional fatigue 11/04/2018 Constitutional No fever 11/04/2018 Constitutional No insomnia 11/04/2018 Constitutional No malaise 11/04/2018 Constitutional weight loss 11/04/2018 Constitutional No weight gain 11/04/2018 Eyes No eye discharge 11/04/2018 Eyes No eye erythema 11/04/2018 Ears/Nose/Throat/Neck No dizziness 2018 Ears/Nose/Throat/Neck headache 2018 Cardiovascular No chest pain/pressure Cardiovascular dyspnea 11/04/2018 Respiratory No cough 11/04/2018 Respiratory dyspnea on exertion 2018 Gastrointestinal gas and bloating 2018 Gastrointestinal gastroesophageal reflux 11/04/2018 Gastrointestinal abdominal pain 2018 Gastrointestinal No constipation 2018 Gastrointestinal No diarrhea 11/04/2018 Genitourinary/Nephrology No dysuria 11/04 Genitourinary/Nephrology No urinary urgency 11/04/2018 Genitourinary/Nephrology urinary frequency 11/04/2018 Musculoskeletal joint complaint 2018 Dermatologic No rash 11/04/2018 Neurologic No alteration of consciousness 11/04/2018 Psychiatric anxiety 11/04/2018 Endocrine No polydipsia 11/04/2018 Hematologic/Lymphatic No abnormal bleeding and bruising 11/04/2018 Constitutional recent illness 07/19/2018 Constitutional No anorexia 07/19/2018 Constitutional No night sweats 2017 Constitutional chills 07/19/2018 Constitutional No diaphoresis 07/19/2018 Constitutional No fatigue 07/19/2018 Constitutional No fever 07/19/2018 Constitutional No insomnia 07/19/2018 Constitutional No malaise 07/19/2018 Constitutional weight loss 07/19/2018 Constitutional No weight gain 07/19/2018 Eyes No eye discharge 07/19/2018 Eyes No eye erythema 07/19/2018 Ears/Nose/Throat/Neck No dizziness 2017 Ears/Nose/Throat/Neck No headache 2017 Cardiovascular No chest pain/pressure 05/2018 Respiratory No cough 07/19/2018 Gastrointestinal abdominal pain 2017 Gastrointestinal No constipation 2017 Gastrointestinal No diarrhea 07/19/2018 Gastrointestinal nausea 07/19/2018 Gastrointestinal No vomiting 07/19/2018 Genitourinary/Nephrology No dysuria 07/19 Musculoskeletal No joint complaint 2017 Dermatologic No rash 07/19/2018 Neurologic No alteration of consciousness 07/19/2018 Psychiatric No depression 07/19/2018 Endocrine No dry or coarse skin 2017 Constitutional No recent illness 2017 Constitutional No anorexia 06/10/2018 Constitutional No night sweats 2017 Constitutional No chills 06/10/2018 Constitutional No diaphoresis 06/10/2018 Constitutional No fatigue 06/10/2018 Constitutional No fever 06/10/2018 Constitutional No insomnia 06/10/2018 Constitutional No malaise 06/10/2018 Constitutional No weight loss 06/10/2018 Constitutional No weight gain 06/10/2018 Constitutional No obesity 06/10/2018 Eyes No eye pain 06/10/2018 Eyes No vision change 06/10/2018 Ears/Nose/Throat/Neck No dizziness 2017 Ears/Nose/Throat/Neck No headache 2017 Cardiovascular No dyspnea 06/10/2018 Respiratory No chest congestion 2017 Respiratory No chest tightness 2017 Respiratory No cigarette smoking 2017 Gastrointestinal No abdominal pain 2017 Gastrointestinal No constipation 2017 Gastrointestinal No diarrhea 06/10/2018 Gastrointestinal No nausea 06/10/2018 Gastrointestinal No vomiting 06/10/2018 Genitourinary/Nephrology No anuria/oliguria 06/10/2018 Genitourinary/Nephrology No dysuria 06/10 Musculoskeletal No stiffness 06/10/2018 Musculoskeletal No swelling 06/10/2018 Musculoskeletal No arthralgia(s) 2017 Dermatologic No rash 06/10/2018 Dermatologic No sores 06/10/2018 Neurologic No alteration of consciousness 06/10/2018 Neurologic No dizziness 06/10/2018 Psychiatric No anxiety 06/10/2018 Psychiatric No depression 06/10/2018 Endocrine No polydipsia 06/10/2018 Endocrine No polyuria 06/10/2018 Hematologic/Lymphatic No abnormal ecchymoses 06/10/2018 Hematologic/Lymphatic No abnormal bleeding and bruising 06/10/2018 Musculoskeletal joint complaint 2017 Constitutional No recent illness 2017 Constitutional No anorexia 12/08/2017 Constitutional No night sweats 2017 Constitutional No chills 12/08/2017 Constitutional No diaphoresis 12/08/2017 Constitutional No fatigue 12/08/2017 Constitutional No fever 12/08/2017 Constitutional No insomnia 12/08/2017 Constitutional No malaise 12/08/2017 Constitutional weight loss 12/08/2017 Constitutional No recent illness 2016 Constitutional No anorexia 10/13/2016 Constitutional No night sweats 2016 Constitutional No chills 10/13/2016 Constitutional No diaphoresis 10/13/2016 Constitutional No fatigue 10/13/2016 Constitutional No fever 10/13/2016 Constitutional No insomnia 10/13/2016 Constitutional No malaise 10/13/2016 Constitutional No weight loss 10/13/2016 Constitutional No weight gain 10/13/2016 Constitutional No obesity 10/13/2016 Eyes No eye pain 10/13/2016 Eyes No vision change 10/13/2016 Ears/Nose/Throat/Neck No dizziness 2016 Ears/Nose/Throat/Neck No headache 2016 Cardiovascular No dyspnea 10/13/2016 Respiratory No cigarette smoking 2016 Respiratory No chest tightness 2016 Respiratory No chest congestion 2016 Gastrointestinal No abdominal pain 2016 Gastrointestinal No constipation 2016 Gastrointestinal No diarrhea 10/13/2016 Gastrointestinal No nausea 10/13/2016 Gastrointestinal No vomiting 10/13/2016 Genitourinary/Nephrology No anuria/oliguria 10/13/2016 Genitourinary/Nephrology No dysuria 10/13 Musculoskeletal No stiffness 10/13/2016 Musculoskeletal No swelling 10/13/2016 Musculoskeletal No arthralgia(s) 2016 Dermatologic No rash 10/13/2016 Dermatologic No sores 10/13/2016 Neurologic No alteration of consciousness 10/13/2016 Neurologic No dizziness 10/13/2016 Psychiatric No anxiety 10/13/2016 Psychiatric No depression 10/13/2016 Endocrine No polyuria 10/13/2016 Endocrine No polydipsia 10/13/2016 Hematologic/Lymphatic No abnormal ecchymoses 10/13/2016 Hematologic/Lymphatic No abnormal bleeding and bruising 10/13/2016 Constitutional No recent illness 2014 Constitutional No chills 10/03/2014 Constitutional No fatigue 10/03/2014 Constitutional No fever 10/03/2014 Dermatologic rash 10/03/2014 Dermatologic No sores 10/03/2014 Dermatologic mole change 10/03/2014 Constitutional recent illness 08/31/2014 Constitutional No anorexia 08/31/2014 Constitutional chills 08/31/2014 Constitutional No diaphoresis 08/31/2014 Constitutional fatigue 08/31/2014 Constitutional No fever 08/31/2014 Constitutional No insomnia 08/31/2014 Constitutional No malaise 08/31/2014 Constitutional No weight loss 08/31/2014 Constitutional No weight gain 08/31/2014 Eyes No eye erythema 08/31/2014 Eyes No eye discharge 08/31/2014 Ears/Nose/Throat/Neck headache 2014 Ears/Nose/Throat/Neck nasal allergies Ears/Nose/Throat/Neck nasal discharge Ears/Nose/Throat/Neck No otalgia 2014 Ears/Nose/Throat/Neck sinus congestion Respiratory productive sputum 08/31/2014 Respiratory chest congestion 08/31/2014 Respiratory cough 08/31/2014 Gastrointestinal No abdominal pain 2014 Gastrointestinal No constipation 2014 Gastrointestinal No diarrhea 08/31/2014 Gastrointestinal No vomiting 08/31/2014 Gastrointestinal No nausea 08/31/2014 Cardiovascular No chest pain/pressure Genitourinary/Nephrology No dysuria 08/31 Musculoskeletal No joint complaint 2014 Dermatologic No sores 08/31/2014 Dermatologic No rash 08/31/2014 Neurologic No alteration of consciousness 08/31/2014 Constitutional No recent illness 2013 Constitutional No chills 02/14/2014 Constitutional No fatigue 02/14/2014 Constitutional No fever 02/14/2014 Constitutional No insomnia 02/14/2014 Constitutional No malaise 02/14/2014 Psychiatric anxiety 02/14/2014 Cardiovascular No chest pain/pressure 03/2014 Constitutional No recent illness 2013 Constitutional No anorexia 01/17/2014 Constitutional No night sweats 2013 Constitutional No chills 01/17/2014 Constitutional No diaphoresis 01/17/2014 Constitutional No fatigue 01/17/2014 Constitutional No fever 01/17/2014 Constitutional No insomnia 01/17/2014 Constitutional No malaise 01/17/2014 Eyes No eye discharge 01/17/2014 Eyes No eye erythema 01/17/2014 Ears/Nose/Throat/Neck No dizziness 2013 Ears/Nose/Throat/Neck No nasal discharge 01/17/2014 Cardiovascular No chest pain/pressure 05/2014 Respiratory No cough 01/17/2014 Gastrointestinal No abdominal pain 2013 Gastrointestinal No constipation 2013 Gastrointestinal No diarrhea 01/17/2014 Genitourinary/Nephrology No dysuria 01/17 Musculoskeletal No joint complaint 2013 Dermatologic No rash 01/17/2014 Dermatologic No sores 01/17/2014 Constitutional No recent illness 2013 Constitutional No anorexia 11/14/2013 Constitutional No night sweats 2013 Constitutional No chills 11/14/2013 Constitutional No diaphoresis 11/14/2013 Constitutional No fatigue 11/14/2013 Constitutional No fever 11/14/2013 Constitutional No insomnia 11/14/2013 Constitutional No malaise 11/14/2013 Eyes No eye discharge 11/14/2013 Eyes No eye erythema 11/14/2013 Ears/Nose/Throat/Neck No dizziness 2013 Ears/Nose/Throat/Neck No headache 2013 Ears/Nose/Throat/Neck No nasal discharge 11/14/2013 Respiratory No cough 11/14/2013 Gastrointestinal No abdominal pain 2013 Gastrointestinal No constipation 2013 Gastrointestinal No diarrhea 11/14/2013 Genitourinary/Nephrology No dysuria 11/14 Musculoskeletal No joint complaint 2013 Dermatologic skin lesion 11/14/2013 Neurologic No alteration of consciousness 11/14/2013 Physical Exam Exam Name System Name Item Name Status Result Effective Dates Notes Full Exam - General 1994 Constitutional general appearance Overall: well developed 11/04/2018 None Full Exam - General 1994 Constitutional general appearance Overall: in no acute distress 11/04/2018 None Full Exam - General 1994 Constitutional general appearance Overall: well nourished 11/04/2018 None Full Exam - General 1994 Eyes conjunctiva /eyelids Overall: conjunctiva clear 11/04/2018 None Full Exam - General 1994 Eyes conjunctiva /eyelids Overall: cornea clear 11/04/2018 None Full Exam - General 1994 Eyes conjunctiva /eyelids Overall: eyelids normal 11/04/2018 None Full Exam - General 1994 Eyes pupils and irises Overall: pupils equal, round, reactive to light and accomodation 11/04/2018 None Full Exam - General 1994 Ears/Nose/Throat otoscopic exam Overall: external auditory canals clear 11/04/2018 None Full Exam - General 1994 Ears/Nose/Throat otoscopic exam Overall: tympanic membranes clear 11/04/2018 None Full Exam - General 1994 Ears/Nose/Throat oral cavity/pharynx/larynx Overall: oral mucosa clear 11/04/2018 None Full Exam - General 1994 Ears/Nose/Throat oral cavity/pharynx/larynx Overall: oropharyngeal mucosa clear 11/04/2018 None Full Exam - General 1994 Ears/Nose/Throat oral cavity/pharynx/larynx Overall: no masses 11/04/2018 None Full Exam - General 1994 Respiratory auscultation Overall: breath sounds clear bilaterally 11/04/2018 None Full Exam - General 1994 Respiratory respiratory effort/rhythm Overall: no retractions 11/04/2018 None Full Exam - General 1994 Respiratory respiratory effort/rhythm Overall: normal rate 11/04/2018 None Full Exam - General 1994 Cardiovascular extremities Overall: no clubbing 11/04/2018 None Full Exam - General 1994 Cardiovascular auscultation of heart Overall: regular rate 11/04/2018 None Full Exam - General 1994 Cardiovascular auscultation of heart Overall: normal heart sounds 11/04/2018 None Full Exam - General 1994 Cardiovascular auscultation of heart Overall: no murmurs 11/04/2018 None Full Exam - General 1994 Abdomen abdominal exam Overall: normal bowel sounds 11/04/2018 None Full Exam - General 1994 Lymphatic neck nodes Overall: anterior cervical chain benign 11/04/2018 None Full Exam - General 1994 Lymphatic neck nodes Overall: posterior cervical chain benign 11/04/2018 None Full Exam - Cardiology Integument inspection/palpation Overall: no rash, lesions 11/04/2018 None Full Exam - General 1994 Musculoskeletal digits and nails Overall: no clubbing 11/04/2018 None Full Exam - General 1994 Musculoskeletal digits and nails Overall: digits benign 11/04/2018 None Full Exam - General 1994 Neurologic cranial nerves Overall: crainial nerves 2 - 12 grossly intact 11/04/2018 None Full Exam - General 1994 Psychiatric orientation/consciousness Overall: oriented to person, place and time 11/04/2018 None Full Exam - Cardiology Abdomen abdominal exam Left upper quadrant: tender to palpation 11/04/2018 None Full Exam - Cardiology Abdomen abdominal exam Left lower quadrant: tender to palpation 11/04/2018 None Full Exam - Cardiology Abdomen abdominal exam Right upper quadrant: tender to palpation 11/04/2018 None Full Exam - Cardiology Abdomen abdominal exam Right lower quadrant: tender to palpation 11/04/2018 None Full Exam - General 1994 Constitutional general appearance Overall: well developed 07/19/2018 None Full Exam - General 1994 Constitutional general appearance Overall: in no acute distress 07/19/2018 None Full Exam - General 1994 Constitutional general appearance Overall: well nourished 07/19/2018 None Full Exam - General 1994 Eyes conjunctiva /eyelids Overall: conjunctiva clear 07/19/2018 None Full Exam - General 1994 Eyes conjunctiva /eyelids Overall: cornea clear 07/19/2018 None Full Exam - General 1994 Eyes conjunctiva /eyelids Overall: eyelids normal 07/19/2018 None Full Exam - General 1994 Eyes pupils and irises Overall: pupils equal, round, reactive to light and accomodation 07/19/2018 None Full Exam - General 1994 Ears/Nose/Throat otoscopic exam Overall: external auditory canals clear 07/19/2018 None Full Exam - General 1994 Ears/Nose/Throat otoscopic exam Overall: tympanic membranes clear 07/19/2018 None Full Exam - General 1994 Ears/Nose/Throat oral cavity/pharynx/larynx Overall: oral mucosa clear 07/19/2018 None Full Exam - General 1994 Ears/Nose/Throat oral cavity/pharynx/larynx Overall: oropharyngeal mucosa clear 07/19/2018 None Full Exam - General 1994 Ears/Nose/Throat oral cavity/pharynx/larynx Overall: no masses 07/19/2018 None Full Exam - General 1994 Respiratory auscultation Overall: breath sounds clear bilaterally 07/19/2018 None Full Exam - General 1994 Respiratory respiratory effort/rhythm Overall: no retractions 07/19/2018 None Full Exam - General 1994 Respiratory respiratory effort/rhythm Overall: normal rate 07/19/2018 None Full Exam - General 1994 Cardiovascular extremities Overall: no clubbing 07/19/2018 None Full Exam - General 1994 Cardiovascular auscultation of heart Overall: regular rate 07/19/2018 None Full Exam - General 1994 Cardiovascular auscultation of heart Overall: normal heart sounds 07/19/2018 None Full Exam - General 1994 Cardiovascular auscultation of heart Overall: no murmurs 07/19/2018 None Full Exam - General 1994 Abdomen abdominal exam Overall: normal bowel sounds 07/19/2018 None Full Exam - General 1994 Lymphatic neck nodes Overall: anterior cervical chain benign 07/19/2018 None Full Exam - General 1994 Lymphatic neck nodes Overall: posterior cervical chain benign 07/19/2018 None Full Exam - General 1994 Musculoskeletal digits and nails Overall: no clubbing 07/19/2018 None Full Exam - General 1994 Musculoskeletal digits and nails Overall: digits benign 07/19/2018 None Full Exam - General 1994 Neurologic cranial nerves Overall: crainial nerves 2 - 12 grossly intact 07/19/2018 None Full Exam - General 1994 Psychiatric orientation/consciousness Overall: oriented to person, place and time 07/19/2018 None Full Exam - Cardiology Integument inspection/palpation Overall: no rash, lesions 07/19/2018 None Full Exam - Cardiology Abdomen abdominal exam Right upper quadrant: tender to palpation 07/19/2018 right flank tender Full Exam - Cardiology Abdomen abdominal exam Left lower quadrant: tender to palpation 07/19/2018 None Full Exam - General 1994 Constitutional general appearance Overall: well developed 06/10/2018 None Full Exam - General 1994 Constitutional general appearance Overall: in no acute distress 06/10/2018 None Full Exam - General 1994 Constitutional general appearance Overall: well nourished 06/10/2018 None Full Exam - General 1994 Eyes conjunctiva /eyelids Overall: conjunctiva clear 06/10/2018 None Full Exam - General 1994 Eyes conjunctiva /eyelids Overall: cornea clear 06/10/2018 None Full Exam - General 1994 Eyes conjunctiva /eyelids Overall: eyelids normal 06/10/2018 None Full Exam - General 1994 Eyes pupils and irises Overall: pupils equal, round, reactive to light and accomodation 06/10/2018 None Full Exam - General 1994 Ears/Nose/Throat otoscopic exam Overall: external auditory canals clear 06/10/2018 None Full Exam - General 1994 Ears/Nose/Throat otoscopic exam Overall: tympanic membranes clear 06/10/2018 None Full Exam - General 1994 Ears/Nose/Throat oral cavity/pharynx/larynx Overall: oral mucosa clear 06/10/2018 None Full Exam - General 1994 Ears/Nose/Throat oral cavity/pharynx/larynx Overall: oropharyngeal mucosa clear 06/10/2018 None Full Exam - General 1994 Ears/Nose/Throat oral cavity/pharynx/larynx Overall: no masses 06/10/2018 None Full Exam - General 1994 Respiratory auscultation Overall: breath sounds clear bilaterally 06/10/2018 None Full Exam - General 1994 Respiratory respiratory effort/rhythm Overall: no retractions 06/10/2018 None Full Exam - General 1994 Respiratory respiratory effort/rhythm Overall: normal rate 06/10/2018 None Full Exam - General 1994 Cardiovascular extremities Overall: no clubbing 06/10/2018 None Full Exam - General 1994 Cardiovascular auscultation of heart Overall: regular rate 06/10/2018 None Full Exam - General 1994 Cardiovascular auscultation of heart Overall: normal heart sounds 06/10/2018 None Full Exam - General 1994 Cardiovascular auscultation of heart Overall: no murmurs 06/10/2018 None Full Exam - General 1994 Abdomen abdominal exam Overall: no tenderness 06/10/2018 None Full Exam - General 1994 Abdomen abdominal exam Overall: normal bowel sounds 06/10/2018 None Full Exam - General 1994 Lymphatic neck nodes Overall: anterior cervical chain benign 06/10/2018 None Full Exam - General 1994 Lymphatic neck nodes Overall: posterior cervical chain benign 06/10/2018 None Full Exam - General 1994 Musculoskeletal digits and nails Overall: no clubbing 06/10/2018 None Full Exam - General 1994 Musculoskeletal digits and nails Overall: digits benign 06/10/2018 None Full Exam - General 1994 Neurologic cranial nerves Overall: crainial nerves 2 - 12 grossly intact 06/10/2018 None Full Exam - General 1994 Psychiatric orientation/consciousness Overall: oriented to person, place and time 06/10/2018 None Full Exam - Orthopedics Constitutional general appearance Overall: well nourished 12/08/2017 None Full Exam - Orthopedics Constitutional general appearance Overall: well developed 12/08/2017 None Full Exam - Orthopedics Constitutional general appearance Overall: in no acute distress 12/08/2017 None Full Exam - Orthopedics Constitutional general appearance Overall: normal body habitus 12/08/2017 None Full Exam - Orthopedics Constitutional general appearance Overall: no deformities 12/08/2017 None Full Exam - Orthopedics Constitutional general appearance Overall: well groomed 12/08/2017 None Full Exam - Orthopedics Constitutional general appearance Overall: no assistive devices 12/08/2017 None Full Exam - Orthopedics Constitutional general appearance Overall: atraumatic 12/08/2017 None Full Exam - Orthopedics Constitutional general appearance Overall: cooperative 12/08/2017 None Full Exam - Orthopedics Constitutional general appearance Overall: healthy appearance 12/08/2017 None Full Exam - Orthopedics Constitutional general appearance Overall: pleasant 12/08/2017 None Full Exam - Orthopedics Constitutional general appearance Overall: relaxed 12/08/2017 None Full Exam - Orthopedics Psychiatric orientation/consciousness Overall: oriented to person, place and time 12/08/2017 None Full Exam - Orthopedics MS: right lower extremity insp & palp - RLE Knee: crepitus 12/08/2017 None Full Exam - Orthopedics MS: right lower extremity insp & palp - RLE Lower leg: normal appearance 12/08/2017 None Full Exam - Orthopedics MS: right lower extremity insp & palp - RLE Ankle: normal appearance 12/08/2017 None Full Exam - Orthopedics MS: right lower extremity range of motion - RLE Knee: crepitus 12/08/2017 None Full Exam - Orthopedics MS: right lower extremity range of motion - RLE Knee: pain with flexion 12/08/2017 None Full Exam - Orthopedics MS: right lower extremity range of motion - RLE Knee: pain with extension 12/08/2017 None Full Exam - Orthopedics MS: right lower extremity stability - RLE Knee: stable knees 12/08/2017 None Full Exam - Orthopedics MS: right lower extremity strength & tone - RLE Knee strength: 5/5 strength for all maneuvers 12/08/2017 None Full Exam - Orthopedics MS: right lower extremity strength & tone - RLE Knee strength: normal flexion with 5/5 strength 12/08/2017 None Full Exam - Orthopedics MS: right lower extremity strength & tone - RLE Knee strength: normal extension with 5/5 strength 12/08/2017 None Full Exam - General 1994 Constitutional general appearance Overall: well developed 10/13/2016 None Full Exam - General 1994 Constitutional general appearance Overall: in no acute distress 10/13/2016 None Full Exam - General 1994 Constitutional general appearance Overall: well nourished 10/13/2016 None Full Exam - General 1994 Eyes conjunctiva /eyelids Overall: conjunctiva clear 10/13/2016 None Full Exam - General 1994 Eyes conjunctiva /eyelids Overall: cornea clear 10/13/2016 None Full Exam - General 1994 Eyes conjunctiva /eyelids Overall: eyelids normal 10/13/2016 None Full Exam - General 1994 Eyes pupils and irises Overall: pupils equal, round, reactive to light and accomodation 10/13/2016 None Full Exam - General 1994 Ears/Nose/Throat otoscopic exam Overall: external auditory canals clear 10/13/2016 None Full Exam - General 1994 Ears/Nose/Throat otoscopic exam Overall: tympanic membranes clear 10/13/2016 None Full Exam - General 1994 Ears/Nose/Throat oral cavity/pharynx/larynx Overall: oral mucosa clear 10/13/2016 None Full Exam - General 1994 Ears/Nose/Throat oral cavity/pharynx/larynx Overall: oropharyngeal mucosa clear 10/13/2016 None Full Exam - General 1994 Ears/Nose/Throat oral cavity/pharynx/larynx Overall: no masses 10/13/2016 None Full Exam - General 1994 Respiratory auscultation Overall: breath sounds clear bilaterally 10/13/2016 None Full Exam - General 1994 Respiratory respiratory effort/rhythm Overall: no retractions 10/13/2016 None Full Exam - General 1994 Respiratory respiratory effort/rhythm Overall: normal rate 10/13/2016 None Full Exam - General 1994 Cardiovascular extremities Overall: no clubbing 10/13/2016 None Full Exam - General 1994 Cardiovascular auscultation of heart Overall: regular rate 10/13/2016 None Full Exam - General 1994 Cardiovascular auscultation of heart Overall: normal heart sounds 10/13/2016 None Full Exam - General 1994 Cardiovascular auscultation of heart Overall: no murmurs 10/13/2016 None Full Exam - General 1994 Abdomen abdominal exam Overall: no tenderness 10/13/2016 None Full Exam - General 1994 Abdomen abdominal exam Overall: normal bowel sounds 10/13/2016 None Full Exam - General 1994 Lymphatic neck nodes Overall: anterior cervical chain benign 10/13/2016 None Full Exam - General 1994 Lymphatic neck nodes Overall: posterior cervical chain benign 10/13/2016 None Full Exam - General 1994 Musculoskeletal digits and nails Overall: no clubbing 10/13/2016 None Full Exam - General 1994 Musculoskeletal digits and nails Overall: digits benign 10/13/2016 None Full Exam - General 1994 Neurologic cranial nerves Overall: crainial nerves 2 - 12 grossly intact 10/13/2016 None Full Exam - General 1994 Psychiatric orientation/consciousness Overall: oriented to person, place and time 10/13/2016 None Full Exam - General 1994 Constitutional general appearance Overall: well nourished 10/03/2014 None Full Exam - General 1994 Constitutional general appearance Overall: well developed 10/03/2014 None Full Exam - General 1994 Constitutional general appearance Overall: in no acute distress 10/03/2014 None Full Exam - General 1994 Psychiatric orientation/consciousness Overall: oriented to person, place and time 10/03/2014 None Full Exam - General 1994 Integument inspection of skin Dermatitis: erythema 10/03/2014 irritated skin over the chest wall - worse below left breast - Full Exam - ENT Constitutional general appearance Overall: well nourished 08/31/2014 None Full Exam - ENT Constitutional general appearance Overall: well developed 08/31/2014 None Full Exam - ENT Constitutional general appearance Overall: in no acute distress 08/31/2014 None Full Exam - ENT Neurologic orientation Overall: oriented to person, place and time 08/31/2014 None Full Exam - ENT Lymphatic palpation of lymph nodes Overall: anterior cervical chain benign 08/31/2014 None Full Exam - ENT Lymphatic palpation of lymph nodes Overall: posterior cervical chain benign 08/31/2014 None Full Exam - ENT Cardiovascular auscultation of heart Overall: regular rate 08/31/2014 None Full Exam - ENT Cardiovascular auscultation of heart Overall: normal heart sounds 08/31/2014 None Full Exam - ENT Respiratory inspection Overall: no retractions 08/31/2014 None Full Exam - ENT Respiratory inspection Overall: normal rate None Full Exam - ENT Respiratory auscultation Overall: breath sounds clear bilaterally 08/31/2014 None Full Exam - ENT Face and Head palpation Overall: no sinus tenderness 08/31/2014 None Full Exam - ENT Ears/Nose/Throat otoscopic exam Overall: external auditory canals normal 08/31/2014 None Full Exam - ENT Ears/Nose/Throat otoscopic exam Overall: tympanic membranes normal 08/31/2014 None Full Exam - ENT Ears/Nose/Throat oropharynx Overall: oral mucosa clear 08/31/2014 None Full Exam - General 1994 Constitutional general appearance Development: well developed 02/14/2014 None Full Exam - General 1994 Constitutional general appearance Development: appears stated age 0702/14/2014 None Full Exam - General 1994 Constitutional general appearance Overall: well developed 01/17/2014 None Full Exam - General 1994 Constitutional general appearance Overall: in no acute distress 01/17/2014 None Full Exam - General 1994 Constitutional general appearance Overall: well nourished 01/17/2014 None Full Exam - General 1994 Eyes conjunctiva /eyelids Overall: conjunctiva clear 01/17/2014 None Full Exam - General 1994 Eyes conjunctiva /eyelids Overall: cornea clear 01/17/2014 None Full Exam - General 1994 Eyes conjunctiva /eyelids Overall: eyelids normal 01/17/2014 None Full Exam - General 1994 Eyes pupils and irises Overall: pupils equal, round, reactive to light and accomodation 01/17/2014 None Full Exam - General 1994 Ears/Nose/Throat otoscopic exam Overall: external auditory canals clear 01/17/2014 None Full Exam - General 1994 Ears/Nose/Throat otoscopic exam Overall: tympanic membranes clear 01/17/2014 None Full Exam - General 1994 Ears/Nose/Throat oral cavity/pharynx/larynx Overall: oral mucosa clear 01/17/2014 None Full Exam - General 1994 Ears/Nose/Throat oral cavity/pharynx/larynx Overall: oropharyngeal mucosa clear 01/17/2014 None Full Exam - General 1994 Ears/Nose/Throat oral cavity/pharynx/larynx Overall: no masses 01/17/2014 None Full Exam - General 1994 Respiratory auscultation Overall: breath sounds clear bilaterally 01/17/2014 None Full Exam - General 1994 Respiratory respiratory effort/rhythm Overall: no retractions 01/17/2014 None Full Exam - General 1994 Respiratory respiratory effort/rhythm Overall: normal rate 01/17/2014 None Full Exam - General 1994 Cardiovascular extremities Overall: no clubbing 01/17/2014 None Full Exam - General 1994 Cardiovascular auscultation of heart Overall: regular rate 01/17/2014 None Full Exam - General 1994 Cardiovascular auscultation of heart Overall: normal heart sounds 01/17/2014 None Full Exam - General 1994 Cardiovascular auscultation of heart Overall: no murmurs 01/17/2014 None Full Exam - General 1994 Abdomen abdominal exam Overall: no tenderness 01/17/2014 None Full Exam - General 1994 Abdomen abdominal exam Overall: normal bowel sounds 01/17/2014 None Full Exam - General 1994 Lymphatic neck nodes Overall: anterior cervical chain benign 01/17/2014 None Full Exam - General 1994 Lymphatic neck nodes Overall: posterior cervical chain benign 01/17/2014 None Full Exam - General 1994 Musculoskeletal digits and nails Overall: no clubbing 01/17/2014 None Full Exam - General 1994 Musculoskeletal digits and nails Overall: digits benign 01/17/2014 None Full Exam - General 1994 Neurologic cranial nerves Overall: crainial nerves 2 - 12 grossly intact 01/17/2014 None Full Exam - General 1994 Psychiatric orientation/consciousness Overall: oriented to person, place and time 01/17/2014 None Full Exam - General 1994 Psychiatric orientation/consciousness Overall: oriented to person, place and time 11/14/2013 None Full Exam - General 1994 Neurologic cranial nerves Overall: crainial nerves 2 - 12 grossly intact 11/14/2013 None Full Exam - General 1994 Integument inspection of skin Rash/Lesions: macule 11/14/2013 0.4cm x 0.3cm irregularly shaped brown macule under left breast, 0.3cmx0.3cm brown macule with dark center mid abdomen and 0.3cmx0.3cm macule left lower abdomen with slightly darker center. Full Exam - General 1994 Musculoskeletal digits and nails Overall: digits benign 11/14/2013 None Full Exam - General 1994 Musculoskeletal digits and nails Overall: no clubbing 11/14/2013 None Full Exam - General 1994 Lymphatic neck nodes Overall: anterior cervical chain benign 11/14/2013 None Full Exam - General 1994 Lymphatic neck nodes Overall: posterior cervical chain benign 11/14/2013 None Full Exam - General 1994 Abdomen abdominal exam Overall: no tenderness 11/14/2013 None Full Exam - General 1994 Abdomen abdominal exam Overall: normal bowel sounds 11/14/2013 None Full Exam - General 1994 Cardiovascular extremities Overall: no clubbing 11/14/2013 None Full Exam - General 1994 Cardiovascular auscultation of heart Overall: regular rate 11/14/2013 None Full Exam - General 1994 Cardiovascular auscultation of heart Overall: normal heart sounds 11/14/2013 None Full Exam - General 1994 Cardiovascular auscultation of heart Overall: no murmurs 11/14/2013 None Full Exam - General 1994 Respiratory auscultation Overall: breath sounds clear bilaterally 11/14/2013 None Full Exam - General 1994 Respiratory respiratory effort/rhythm Overall: normal rate 11/14/2013 None Full Exam - General 1994 Respiratory respiratory effort/rhythm Overall: no retractions 11/14/2013 None Full Exam - General 1994 Ears/Nose/Throat otoscopic exam Overall: tympanic membranes clear 11/14/2013 None Full Exam - General 1994 Ears/Nose/Throat otoscopic exam Overall: external auditory canals clear 11/14/2013 None Full Exam - General 1994 Ears/Nose/Throat oral cavity/pharynx/larynx Overall: oropharyngeal mucosa clear 11/14/2013 None Full Exam - General 1994 Ears/Nose/Throat oral cavity/pharynx/larynx Overall: no masses 11/14/2013 None Full Exam - General 1995 Ears/Nose/Throat oral cavity/pharynx/larynx Overall: oral mucosa clear 11/14/2013 None Full Exam - General 1994 Constitutional general appearance Overall: well nourished 11/14/2013 None Full Exam - General 1994 Constitutional general appearance Overall: well developed 11/14/2013 None Full Exam - General 1994 Constitutional general appearance Overall: in no acute distress 11/14/2013 None Full Exam - General 1994 Eyes conjunctiva /eyelids Overall: conjunctiva clear 11/14/2013 None Full Exam - General 1994 Eyes conjunctiva /eyelids Overall: eyelids normal 11/14/2013 None Full Exam - General 1994 Eyes conjunctiva /eyelids Overall: cornea clear 11/14/2013 None Full Exam - General 1994 Eyes pupils and irises Overall: pupils equal, round, reactive to light and accomodation 11/14/2013 None Procedures Procedure Codes Date URINALYSIS NONAUTO W/O SCOPE CPT-4: 48742 08/05/2018 BIOPSY SKIN LESION CPT -4: 12513 02/14/2014 BIOPSY SKIN ADD-ON CPT -4: 41469 02/14/2014 Vital Signs Date Vital 11/04/2018 Blood Pressure 1: 126/82 Code : 8480-6 BMI: 20.9 Code : 53747-7 Heart Rate 1 : 97 bpm Height: 5'4" SpO2: 96% Weight: 122 lbs 07/19/2018 Blood Pressure 1: 120/80 Code : 8480-6 BMI: 23.3 Code : 32946-0 Heart Rate 1 : 77 bpm Height: 5'4" SpO2: 99% Temperature: 37.2 (C) / 98.9 (F) Weight: 136 lbs 06/10/2018 Blood Pressure 1: 116/78 Code : 8480-6 BMI: 23.3 Code : 09533-2 Heart Rate 1 : 69 bpm Height: 5'4" SpO2: 99% Weight: 136 lbs 12/08/2017 Blood Pressure 1: 130/86 Code : 8480-6 BMI: 29.7 Code : 96772-1 Heart Rate 1 : 67 bpm Height: 5'4" SpO2: 99% Weight: 173 lbs 10/13/2016 Blood Pressure 1: 128/92 Code : 8480-6 BMI: 32.1 Code : 93048-0 Heart Rate 1 : 87 bpm Height: 5'4" SpO2: 98% Weight: 187 lbs 10/03/2014 Blood Pressure 1: 110/76 Code : 8480-6 Heart Rate 1: 82 bpm 08/31/2014 Blood Pressure 1: 118/74 Code : 8480-6 BMI: 35.2 Code : 10546-4 Heart Rate 1 : 76 bpm Height: 5'4" Temperature: 36.4 (C) / 97.5 (F) Weight: 205 lbs 02/21/2014 Blood Pressure 1: 132/78 Code : 8480-6 Heart Rate 1: 80 bpm SpO2: 98% 02/14/2014 Blood Pressure 1: 120/70 Code : 8480-6 Heart Rate 1: 72 bpm Height: Weight: 01/17/2014 Blood Pressure 1: 116/90 Code : 8480-6 BMI: 35.0 Code : 56270-1 Height: 5'4" Weight: 204 lbs 11/14/2013 Blood Pressure 1: 112/76 Code : 8480-6 BMI: 35.7 Code : 97257-5 Heart Rate 1 : 80 bpm Height: 5'4" Weight: 208 lbs Functional Status No Functional Status data History of Present Illness Symptom Name Status Result Effective Date Notes Quality acute 2018 None Quality amenorrhea None Onset and Resolution sudden in onset 11/04/2018 None Onset of Symptom 9 weeks ago 11/04/2018 None Triggers no known associated factors 11/04/2018 None Pertinent Findings nausea 11/04/2018 None Pertinent Findings weight loss 11/04/2018 None Pertinent Findings unprotected sexual intercourse 11/04/2018 None Limitation on Activities moderately limits activities 11/04/2018 None Frequency of Episodes increasing 11/04/2018 None Location in the right lower back area 07/19/2018 right flank Quality intermittent 07/19/2018 None Onset and Resolution sudden in onset 07/19/2018 None Onset of Symptom 5 days ago 07/19/2018 None Limitation on Activities moderately limits activities 07/19/2018 None Frequency of Episodes daily 07/19/2018 None Mechanism of injury unknown 07/19/2018 None Pertinent Findings Denies fever 07/19/2018 None Pertinent Findings Denies weakness 07/19/2018 None Triggers no known associated factors 07/19/2018 None well woman exam (18-39 years) Obstetrical History 2 total pregnancies 06/10/2018 None well woman exam (18-39 years) Lifestyle normal sleep patterns 06/10/2018 None well woman exam (18-39 years) Lifestyle normal amount of stress 06/10/2018 None well woman exam (18-39 years) Cardiovascular Risk Factors hypertension 06/10/2018 None hypertension Onset of Symptom during adulthood 06/10/2018 None hypertension Quality primary hypertension 06/10/2018 None hypertension Quality chronic 06/10/2018 None well woman exam (18-39 years) Cardiovascular Risk Factors family history of cardiovascular disease None hypertension Blood Pressure Values patient checking blood pressure at home - did not bring in readings 06/10/2018 -Checks occasionally hypertension Pertinent Findings Denies dizziness 06/10/2018 None hypertension Pertinent Findings Denies dyspnea 06/10/2018 None hypertension Pertinent Findings Denies edema 06/10/2018 None well woman exam (18-39 years) Pap Smear normal results 06/10/2018 -Had done last year by Dr. Campbell well woman exam (18-39 years) Menstrual History regular menses 06/10/2018 None well woman exam (18-39 years) Nutrition and Exercise normal weight 06/10/2018 None well woman exam (18-39 years) Nutrition and Exercise minimal exercise 06/10/2018 since knee surgery in February hypertension Pertinent Findings weight loss 06/10/2018 None hypertension Quality improving 06/10/2018 None hypertension Frequency of Episodes decreasing 06/10/2018 None knee pain Location on the right 12/08/2017 None knee pain Quality acute 12/08/2017 None knee pain Quality sharp pain 12/08/2017 None knee pain Onset and Resolution sudden in onset 12/08/2017 None knee pain Onset of Symptom 4-5 days ago 12/08/2017 None knee pain Frequency of Episodes daily 12/08/2017 None knee pain Limitation on Activities unable to perform any activities without pain 12/08/2017 None knee pain Exacerbating Factors flexion of the knee 12/08/2017 None knee pain Exacerbating Factors weight bearing 12/08/2017 None knee pain Exacerbating Factors exertion 12/08/2017 None knee pain Pertinent Findings Denies instability 12/08/2017 None knee pain Pertinent Findings decreased range of motion 12/08/2017 None knee pain Pertinent Findings pain with movement 12/08/2017 None knee pain Pertinent Findings swelling 12/08/2017 None well woman exam (18-39 years) Pap Smear normal results 10/13/2016 None well woman exam (18-39 years) Obstetrical History 2 total pregnancies 10/13/2016 None well woman exam (18-39 years) Lifestyle normal sleep patterns 10/13/2016 None well woman exam (18-39 years) Lifestyle normal amount of stress 10/13/2016 None well woman exam (18-39 years) Nutrition and Exercise balanced nutrition 10/13/2016 None well woman exam (18-39 years) Nutrition and Exercise moderate exercise 10/13/2016 -Started 2 weeks ago hypertension Onset and Resolution ongoing 10/13/2016 None hypertension Onset of Symptom during adulthood 10/13/2016 None hypertension Blood Pressure Values not checking blood pressure at home 10/13/2016 None hypertension Alleviating Factors medication 10/13/2016 None well woman exam (18-39 years) Cardiovascular Risk Factors hypertension 10/13/2016 None hypertension Quality intermittent 10/13/2016 None office procedure Procedure to be performed excision - but could not be done due to rash over the site to be removed. 10/03/2014 None cough Location in the throat 08/31/2014 None cough Quality productive 08/31/2014 green cough Onset of Symptom 3 days ago 08/31/2014 None cough Pertinent Findings Denies fever 08/31/2014 None cough Pertinent Findings muscle aches 08/31/2014 None cough Pertinent Findings lethargy 08/31/2014 None chills Quality intermittent 08/31/2014 None headache Location in the frontal area 08/31/2014 None chills Onset and Resolution ongoing 08/31/2014 None chills Onset of Symptom 2 days ago 08/31/2014 None chills Frequency of Episodes increasing 08/31/2014 None chills Severity mild 08/31/2014 None chills Severity moderate 08/31/2014 None chills Ill Contacts ill contacts 08/31/2014 None chills Triggers no known associated factors 08/31/2014 None cough Onset and Resolution ongoing 08/31/2014 None cough Limitation on Activities does not limit activities 08/31/2014 None cough Frequency of Episodes increasing 08/31/2014 None cough Triggers no known associated factors 08/31/2014 None cough Alleviating Factors OTC medications 08/31/2014 None cough Pertinent Findings chills 08/31/2014 None cough Pertinent Findings Denies dyspnea 08/31/2014 None cough Pertinent Findings purulent sputum 08/31/2014 None cough Pertinent Findings Denies nausea 08/31/2014 None cough Pertinent Findings nasal congestion 08/31/2014 None headache Quality acute 08/31/2014 None headache Onset and Resolution ongoing 08/31/2014 None headache Onset of Symptom 2 days ago 08/31/2014 None headache Limitation on Activities does not limit activities 08/31/2014 None headache Frequency of Episodes increasing 08/31/2014 None headache Significant Medical Conditions allergic rhinitis 08/31/2014 None headache Significant Medications NSAID's 08/31/2014 None headache Triggers no known associated factors 08/31/2014 None skin lesion Quality enlarging 02/14/2014 None skin lesion Onset and Resolution ongoing 02/14/2014 None skin lesion Onset of Symptom during adulthood 02/14/2014 None skin lesion Severity mild 02/14/2014 None skin lesion Pertinent Findings Denies cough 02/14/2014 None headache Quality acute 01/17/2014 None headache Onset and Resolution ongoing 01/17/2014 None headache Quality sharp 01/17/2014 None headache Pertinent Findings weakness 01/17/2014 started some magnesium and it has helped some hypertension Quality chronic 01/17/2014 None hypertension Onset and Resolution ongoing 01/17/2014 None hypertension Blood Pressure Values patient checking blood pressure at home - did not bring in readings 01/17/2014 None hypertension Severity not consistently severe symptoms, the symptoms fluctuate from no symptoms to anxiety and headaches 01/17/2014 None hypertension Frequency of Episodes unchanged 01/17/2014 None hypertension Triggers no known associated factors 01/17/2014 None hypertension Alleviating Factors medication 01/17/2014 None headache Limitation on Activities does not limit activities 01/17/2014 None headache Frequency of Episodes decreasing 01/17/2014 None blood pressure followup Quality chronic 11/14/2013 None blood pressure followup Onset and Resolution ongoing 11/14/2013 mildly elevated blood pressure before , elevated during . blood pressure followup Onset of Symptom during adulthood 11/14/2013 None blood pressure followup Blood Pressure Values pt checking blood pressure at home, did not bring in to clinic 11/14/2013 120s/80s at home blood pressure followup Severity mild 11/14/2013 None blood pressure followup Frequency of Episodes unchanged 11/14/2013 None blood pressure followup Triggers pt checking blood pressure - see scanned document 11/14/2013 None blood pressure followup Pertinent Findings Denies confusion 11/14/2013 None blood pressure followup Pertinent Findings Denies dizziness 11/14/2013 None blood pressure followup Pertinent Findings Denies dyspnea 11/14/2013 None blood pressure followup Pertinent Findings Denies edema 11/14/2013 None blood pressure followup Pertinent Findings obesity 11/14/2013 None blood pressure followup Pertinent Findings Denies nausea 11/14/2013 None Advance Directives No Advance Directive data Encounters Encounter Performer Location Codes Date ([id number]) 17351 EST. PATIENT, LEVEL IV Diagnosis: Secondary amenorrhea[ICD10: N91.1] Diagnosis: Generalized abdominal pain[ICD10: R10.84] Diagnosis: Gas pain[ICD10: R14.1] [facility] CPT-4: 43411 11/04/2018 ([id number]) 20969 EST. PATIENT, LEVEL III Diagnosis: Right upper quadrant pain[ICD10: R10.11] Diagnosis: Urinary tract infection, site not specified[ICD10: N39.0] [facility] CPT-4: 51952 07/19/2018 ([id number]) PREV VISIT EST AGE 18-39 Diagnosis: Encounter for general adult medical examination without abnormal findings[ICD10: Z00.00] Krystal Cabral MD, [facility] CPT-4: 95610 06/10/2018 42056 EST. PATIENT, LEVEL III Diagnosis: Pain in right knee[ICD10: M25.561] [facility] CPT-4: 62800 12/08/2017 ([id number]) PREV VISIT EST AGE 18-39 Diagnosis: Encounter for general adult medical examination without abnormal findings[ICD10: Z00.00] Diagnosis: Essential (primary) hypertension[ICD10: I10] Diagnosis: Impaired fasting glucose[ICD10: R73.01] Diagnosis: Personal history of gestational diabetes[ICD10: Z86.32] [facility] CPT-4: 19144 10/13/2016 ([id number]) 88064 EST. PATIENT, LEVEL II Diagnosis: Rash[ICD9: 782.1] [facility] CPT-4: 26392 10/03/2014 ([id number]) 84497 EST. PATIENT, LEVEL III Diagnosis: COUGH[ICD9: 786.2] Diagnosis: FEVER NOS[ICD9: 780.60] Diagnosis: Influenza[ICD9: 487.1] [facility] CPT-4: 74549 08/31/2014 ([id number]) Miscellaneous no charge Diagnosis: BENIGN ADDISON SKIN TRUNK[ICD9: 216.5] [facility] CPT-4: 72157 02/21/2014 ([id number]) 12835 EST. PATIENT, LEVEL III Diagnosis: ESSENTIAL HYPERTENSION[SNOMED: 89691389] [facility] CPT-4: 50399 01/17/2014 Office outpatient new 30 minutes Diagnosis: ESSENTIAL HYPERTENSION[SNOMED: 18830829] Diagnosis: Mole of skin[ICD9: 216.9] [facility] CPT-4: 61575 11/14/2013 Plan of Care Planned Activity Notes Codes Status Date Visit Plan: Secondary amenorrhea - recommend pelvic ultrasound for further evaluate Generalized abdominal pain-discussed CT abd/ pelvis if ultrasound negative-check labs and UA as well 11/04/2018 Appointment: Krystal Rosales WPtel: [phone] [phone] [place] (30 min) Complex 11/04/2018 Patient Education: Patient Medication Summary Completed 11/04/2018 Appointment: Lab Draw 08/05/2018 Patient Education: Patient Medication Summary Completed 08/05/2018 Visit Plan: Right flank pain -UTI -will send patient for labs and KUB to check for kidney stone -continue abx -culture will be back Thursday -instructed patient to increase fluids -lets us know if pain does not resolve or if any worse and we will do a CT abd/pelvis for further evaluation. Patient verbalized understanding of plan. 07/19/2018 Appointment: Krystal Rosales WPtel: [phone] [place] (15 min) Moderate 07/19/2018 Patient Education: Patient Medication Summary Completed 07/19/2018 Visit Plan: Well Adult - pt was counseled about diet, exercise, and encouraged to follow a heart healthy diet and increase activity level. The patient was instructed to RTC yearly for well adult exams and PRN for acute illnesses. The pt was also instructed to have yearly labs for check of cholesterol, thyroid, chem panel, CBC, and renal functioning. 06/10/2018 Appointment: Krystal Rosales WPtel: [phone] [place] (15 min) Moderate 06/10/2018 Patient Education: Patient Medication Summary Completed 06/10/2018 Visit Plan: Right knee pain-recommend rest, ice and anti inflammatories as directed-call if symptoms do not resolve and we will order imaging studies. 12/08/2017 Appointment: Krystal Rosales WPtel: [phone] [place] (30 min) Complex 12/08/2017 Patient Education: Patient Medication Summary Completed 12/08/2017 Appointment: Bibiana Thomas WPtel: [phone] [facility] [place] (30 min) Complex 09/29/2017 Visit Plan: Well Adult - pt was counseled about diet, exercise, and encouraged to follow a heart healthy diet and increase activity level. The patient was instructed to RTC yearly for well adult exams and PRN for acute illnesses. The pt was also instructed to have yearly labs for check of cholesterol, thyroid, chem panel, CBC, and renal functioning. History of gestational diabetes-elevated blood sugars-check Hgb A1C 10/13/2016 Appointment: Krystal Rosales WPtel: [phone] (15 min) Moderate 10/13/2016 Patient Education: Patient Medication Summary Completed 10/13/2016 Patient Education: Obesity Completed 10/13/2016 Patient Education: Hypertension Completed 10/13/2016 Visit Plan: Rash - RX for ketoconazole given to patient to fill and use on chest wall call if not improving, will need to reschedule the removal of the mole. 10/03/2014 Appointment: Leonor Cabral WPtel: [facility] Surgical Procedure 10/03/2014 Patient Education: Patient Medication Summary Completed 10/03/2014 Visit Plan: Influenza-discussed natural and expected course of this diagnosis and to alert me if symptoms do not follow expected course, or if any worse. RX sent to patient's pharmacy. Recommend rest, increase po fluids and take anti inflammatories as directed for fever, body aches. Instructed patient to stay home from school the rest of the week as well. Patient and Mother verbalized understanding of plan. 08/31/2014 Patient Education: Patient Medication Summary Completed 08/31/2014 Care Plan: C A/B FLU Pending 08/31/2014 Appointment: Leonor Cabral WPtel: [facility] [place] Follow up 07/11/2014 Visit Plan: Suture removal-sites clear 02/21/2014 Appointment: Leonor Cabral WPtel: [facility] suture removal 02/21/2014 Patient Education: Patient Medication Summary Completed 02/21/2014 Visit Plan: Wound Instructions - Pt was instructed to keep the wound clean, wash with antibacterial soap, use triple antibiotic ointment, call if redness, pustular drainage, or any other acute concerns. 02/14/2014 Appointment[phone] [facility] 02/14/2014 Patient Education: Patient Medication Summary Completed 02/14/2014 Visit Plan: Hypertension - well controlled - continue with current medications, continue with no added salt diet. Pt has been encouraged to exercise daily. The pt has been advised to call the office if there are any acute concerns about change in blood pressure readings at home. 01/17/2014 [facility]ment: [phone] Follow up 01/17/2014 Patient Education: Patient Medication Summary Completed 01/17/2014 Patient Education: Hypertension Completed 01/17/2014 Visit Plan: Hypertension - well controlled - continue with current medications, continue with no added salt diet. Pt has been encouraged to exercise daily. The pt has been advised to call the office if there are any acute concerns about change in blood pressure readings at home. Moles-monitor for [id number]-[id number] in 3 months and plan for removal if changing. 11/14/2013 Appointment: Krystal Rosales WPtel: [phone] New Patient 11/14/2013 Patient Education: Patient Medication Summary Completed 11/14/2013 Patient Education: Hypertension Completed 11/14/2013 Instructions Comment . Hypertension - well controlled - continue with current medications, continue with no added salt diet. Pt has been encouraged to exercise daily. The pt has been advised to call the office if there are any acute concerns about change in blood pressure readings at home. Moles-monitor for [id number] in 3 months and plan for removal if changing. repeat UA check labs pelvic ultrasound . Secondary amenorrhea - recommend pelvic ultrasound for further evaluate Generalized abdominal pain-discussed CT abd/pelvis if ultrasound negative-check labs and UA as well . Well Adult - pt was counseled about diet, exercise, and encouraged to follow a heart healthy diet and increase activity level. The patient was instructed to RTC yearly for well adult exams and PRN for acute illnesses. The pt was also instructed to have yearly labs for check of cholesterol, thyroid, chem panel, CBC, and renal functioning. . Rash - RX for ketoconazole given to patient to fill and use on chest wall call if not improving, will need to reschedule the removal of the mole. . Wound Instructions - Pt was instructed to keep the wound clean, wash with antibacterial soap, use triple antibiotic ointment, call if redness, pustular drainage, or any other acute concerns. . Well Adult - pt was counseled about diet, exercise, and encouraged to follow a heart healthy diet and increase activity level. The patient was instructed to RTC yearly for well adult exams and PRN for acute illnesses. The pt was also instructed to have yearly labs for check of cholesterol, thyroid, chem panel, CBC, and renal functioning. History of gestational diabetes-elevated blood sugars-check Hgb A1C . Suture removal-sites clear REST STRETCHES VOLTAREN GEL IMAGING STUDIES IF PAIN DOES NOT RESOLVE . Right knee pain-recommend rest, ice and anti inflammatories as directed-call if symptoms do not resolve and we will order imaging studies. . Influenza-discussed natural and expected course of this diagnosis and to alert me if symptoms do not follow expected course, or if any worse. RX sent to patient's pharmacy. Recommend rest, increase po fluids and take anti inflammatories as directed for fever, body aches. Instructed patient to stay home from school the rest of the week as well. Patient and Mother verbalized understanding of plan. . Hypertension - well controlled - continue with current medications, continue with no added salt diet. Pt has been encouraged to exercise daily. The pt has been advised to call the office if there are any acute concerns about change in blood pressure readings at home. labs including KUB to r/o kidney stone . Right flank pain -UTI -will send patient for labs and KUB to check for kidney stone -continue abx -culture will be back Thursday -instructed patient to increase fluids -lets us know if pain does not resolve or if any worse and we will do a CT abd/pelvis for further evaluation. Patient verbalized understanding of plan.
--- OUTSIDE RECORDS SUMMARY | 2018-11-16 08:49 | XMS REPORT | CCD ---
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 Name Role Phone Leonor Cabral PP Unavailable CCM Unavailable Summary Purpose Interface Exchange Insurance Providers Payer name Policy type / Coverage type Covered constitution party ID Effective Begin Date Effective End Date [facility] [id number] 2016 Unknown Family history Mother Diagnosis Age [...] Unknown House 11/14/[address]: 832348658 Never smoker 11/14/[address]: 062842758 Never drinks alcohol 11/14/2013 Allergies, Adverse Reactions, Alerts Substance Reaction Codes Entered Date Inactivated Date Status clindamycin HCl hives RxNorm: 2582 11/14/2013 No Inactive Date Active bactrim RxNorm: 327787 08/05/2018 No Inactive Date Active PENICILLINS rash [...] Bactrim DS 800 mg-160 mg tablet RxNorm: 100069 1 Tablet(s) PO BID 07/29/2018 08/04/2018 Inactive take probiotic BID while on abx Bactrim DS 800 mg-160 mg tablet RxNorm: 272334 1 Tablet(s) PO BID 07/29/2018 07/28/2018 Inactive Voltaren 1 % topical gel RxNorm: 989065 4 Gram(s) TOP QID 12/0812/17/2017 Inactive metoprolol succinate ER 25 mg tablet,extended release 24 hr RxNorm: 687936 Tablet (s) 1/2 TABLET(S) PO DAILY 12/08/2017 Inactive metoprolol succinate ER 25 mg tablet,extended release 24 hr RxNorm: 808897 Tablet (s) 1 TABLET(S) PO DAILY 10/13/20162017 Inactive Tamiflu 75 mg capsule RxNorm: 180804 1 Capsule(s) PO BID 201409/04/2014 Inactive [SAVINGS FOR UNINSURED PATIENTS -- BIN:[id number], PCN: [id number], Group: [id number], ID # [id number], Process claim through [employer], for questions: . THIS IS NOT INSURANCE.] metoprolol succinate ER 25 mg tablet,extended release 24 hr RxNorm: 330742 1 TABLET(S) PO DAILY 03/24/2014 09/19/2014 Inactive metoprolol succinate ER 25 mg tablet,extended release 24 hr RxNorm: 198156 1 Tablet(s) PO daily 11/14/2013 03/13/2014 Inactive Fish Oil oral RxNorm: 5234930 oral No Start Date Active folic acid [...] 11/03/2018 Inactive labetalol 200 mg tablet RxNorm: 418546 1 Tablet(s) PO BID No Start Date [...] lesion ICD-9: 709.9 2013 ESSENTIAL HYPERTENSION SNOMED: 25937096 ICD-9: 401.9 01/17/2014 Mole of skin ICD-9: [...] Item Item Code Result Date Comp Metabolic Yrr951 NA 141 mEq/L 11/04/2018 Comp Metabolic Wsw151 K 4.0 mEq/L 11/04/2018 Comp Metabolic Ldv610 CL 106 mEq/L 11/04/2018 Comp Metabolic Lzy676 CO2 31.0 mEq/L 11/04/2018 Comp Metabolic Axc336 ANION GAP 8 11/04/2018 Comp Metabolic Nki348 GLUCOSE 55 mg/dL 11/04/2018 Comp Metabolic Uex102 Creat 0.9 mg/dL 11/04/2018 Comp Metabolic Jrk780 eGFR 81 ml/min/1.73m2 11/04/2018 Comp Metabolic Plr812 BUN 21 mg/dL 11/04/2018 Comp Metabolic Wfg133 B/C Ratio 24.4 Ratio 11/04/2018 Comp Metabolic Dqt534 CALCIUM 9.4 mg/dL 11/04/2018 Comp Metabolic Qoc454 ALK PHOS 40 U/L 11/04/2018 Comp Metabolic Jzr930 AST(SGOT) 20 U/L 11/04/2018 Comp Metabolic Ues061 ALT(SGPT) 20 U/L 11/04/2018 Comp Metabolic Fif155 BILI T 0.6 mg/dL 11/04/2018 Comp Metabolic Lmf726 ALBUMIN 4.2 g/dL 11/04/2018 Comp Metabolic Agr839 TPRO 6.3 g/dL 11/04/2018 Comp Metabolic Tbg296 GLOB 2.1 g/dL 11/04/2018 Comp Metabolic Gpy862 A/G Ratio 2.0 Ratio 11/04/2018 Comp Metabolic Fqj668 Osmo 282 mOsmo 11/04/2018 Cbc With Differential [...] 30.2 pg 11/04/2018 Cbc With Differential Ord2 Mckenzie% 2.9 % 11/04/2018 Cbc With Differential Ord2 [...] 2.70 K/ul 11/04/2018 Cbc With Differential Ord2 Mckenzie ABS# 0.2 K/ul 11/04/2018 Cbc With Differential Ord2 Eos ABS# 2.3 K/ul 11/04/2018 Cbc With Differential Ord2 Baso ABS# 0.0 K/ul 11/04/2018 Tsh Ord6 TSH (3rd IS) 1.68 uIU/mL 11/04/2018 Urine Culture Ucult Preliminary NO Growth Day 1 08/07/2018 Urine Culture Ucult Complete NO Growth Day 2 08/07/2018 Comp Metabolic Hob185 NA 139 mEq/L 06/10/2018 Comp Metabolic Cvo481 K 4.2 mEq/L 06/10/2018 Comp Metabolic Xqy006 CL 105 mEq/L 06/10/2018 Comp Metabolic Tro667 CO2 27.0 mEq/L 06/10/2018 Comp Metabolic Wca263 ANION GAP 11 06/10/2018 Comp Metabolic Dag375 GLUCOSE 85 mg/dL 06/10/2018 Comp Metabolic Kng369 Creat 0.7 mg/dL 06/10/2018 Comp Metabolic Qtk079 eGFR 105 ml/min/1.73m2 06/10/2018 Comp Metabolic Irm353 BUN 22 mg/dL 06/10/2018 Comp Metabolic Soe481 B/C Ratio 31.9 Ratio 06/10/2018 Comp Metabolic Tpr926 CALCIUM 9.1 mg/dL 06/10/2018 Comp Metabolic Qld192 ALK PHOS 39 U/L 06/10/2018 Comp Metabolic Vmy331 AST(SGOT) 14 U/L 06/10/2018 Comp Metabolic Bpv126 ALT(SGPT) 15 U/L 06/10/2018 Comp Metabolic Nyi198 BILI T 0.6 mg/dL 06/10/2018 Comp Metabolic Dce820 ALBUMIN 4.3 g/dL 06/10/2018 Comp Metabolic Zvz498 TPRO 6.2 g/dL 06/10/2018 Comp Metabolic Pii380 GLOB 1.9 g/dL 06/10/2018 Comp Metabolic Ppq867 A/G Ratio 2.2 Ratio 06/10/2018 Comp Metabolic Odu456 Osmo 280 mOsmo 06/10/2018 Cbc With Differential [...] 30.9 pg 06/10/2018 Cbc With Differential Ord2 Mckenzie% 6.1 % 06/10/2018 Cbc With Differential Ord2 [...] 2.01 K/ul 06/10/2018 Cbc With Differential Ord2 Mckenzie ABS# 0.2 K/ul 06/10/2018 Cbc With Differential [...] 28.8 pg 10/15/2016 Cbc With Differential Ord2 Mckenzie% 7.1 % 10/15/2016 Cbc With Differential Ord2 [...] 2.06 K/ul 10/15/2016 Cbc With Differential Ord2 Mckenzie ABS# 0.3 K/ul 10/15/2016 Cbc With Differential Ord2 Eos ABS# 0.1 K/ul 10/15/2016 Cbc With Differential Ord2 Baso ABS# 0.0 K/ul 10/15/2016 Comp Metabolic Ycf507 NA 139 mEq/L 10/15/2016 Comp Metabolic Jxr184 K 4.2 mEq/L 10/15/2016 Comp Metabolic Acl067 CL 106 mEq/L 10/15/2016 Comp Metabolic Gej560 CO2 26.0 mEq/L 10/15/2016 Comp Metabolic Mqp111 ANION GAP 11 10/15/2016 Comp Metabolic Nqy255 GLUCOSE 82 mg/dL 10/15/2016 Comp Metabolic Peu102 Creat 0.9 mg/dL 10/15/2016 Comp Metabolic Dfh872 eGFR 79 ml/min/1.73m2 10/15/2016 Comp Metabolic Ijc221 BUN 16 mg/dL 10/15/2016 Comp Metabolic Nnn767 B/C Ratio 18.0 Ratio 10/15/2016 Comp Metabolic Oge512 CALCIUM 9.1 mg/dL 10/15/2016 Comp Metabolic Zco084 ALK PHOS 59 U/L 10/15/2016 Comp Metabolic Xxw470 AST(SGOT) 18 U/L 10/15/2016 Comp Metabolic Nza424 ALT(SGPT) 22 U/L 10/15/2016 Comp Metabolic Uun700 BILI T 0.4 mg/dL 10/15/2016 Comp Metabolic Nzx894 ALBUMIN 4.0 g/dL 10/15/2016 Comp Metabolic Pmy343 TPRO 6.3 g/dL 10/15/2016 Comp Metabolic Huz943 GLOB 2.3 g/dL 10/15/2016 Comp Metabolic Qfh351 A/G Ratio 1.8 Ratio 10/15/2016 Comp Metabolic Wwg054 Osmo 278 mOsmo 10/15/2016 %Hba1C Bcr367 % HbA1c 28963-9 5.4 % 10/15/2016 %Hba1C Glb638 Gluc Ave 108 mg/dL 10/15/2016 Tsh Ord6 hTSH II 1.45 uIU/mL 10/15/2016 Lipid Ord30 CHOL 206 mg/dL 10/15/2016 Lipid Ord30 HDL 51.0 mg/dl 10/15/2016 Lipid Ord30 TRIG 43 mg/dL 10/15/2016 Lipid Ord30 LDL 146 mg/dL 10/15/2016 Lipid Ord30 C/HDL 4.0 Ratio 10/15/2016 UA 21278 Specific Burgin 1.015 DateTime(Free Text in ) UA 79836 PH 6.0 DateTime(Free Text in ) UA 25605 Protein n DateTime(Free Text in ) UA 36788 Blood trace DateTime(Free Text in ) UA 14925 Bilirubin n DateTime(Free Text in ) UA 14816 Ketones n DateTime(Free Text in ) UA 02858 Urobilinogen n DateTime(Free Text in ) UA 07348 Nitrite n DateTime(Free Text in ) UA 91148 Leukocytes n DateTime(Free Text in ) UA 71056 Glucose n DateTime(Free Text in ) Review [...] Codes Date URINALYSIS NONAUTO W/O SCOPE CPT-4: 57141 08/05/2018 BIOPSY SKIN LESION CPT -4: 34884 02/14/2014 BIOPSY SKIN ADD-ON CPT -4: 02651 02/14/2014 Vital Signs Date Vital 11/04/2018 Blood Pressure 1: 126/82 Code : 8480-6 BMI: 20.9 Code : 65927-6 Heart Rate 1 : 97 bpm Height: 5'4" SpO2: 96% Weight: 122 lbs 07/19/2018 Blood Pressure 1: 120/80 Code : 8480-6 BMI: 23.3 Code : 67060-3 Heart Rate 1 : 77 bpm Height: 5'4" SpO2: 99% Temperature: 37.2 (C) / 98.9 (F) Weight: 136 lbs 06/10/2018 Blood Pressure 1: 116/78 Code : 8480-6 BMI: 23.3 Code : 04839-4 Heart Rate 1 : 69 bpm Height: 5'4" SpO2: 99% Weight: 136 lbs 12/08/2017 Blood Pressure 1: 130/86 Code : 8480-6 BMI: 29.7 Code : 20014-4 Heart Rate 1 : 67 bpm Height: 5'4" SpO2: 99% Weight: 173 lbs 10/13/2016 Blood Pressure 1: 128/92 Code : 8480-6 BMI: 32.1 Code : 65253-0 Heart Rate 1 : 87 bpm Height: 5'4" SpO2: 98% Weight: 187 lbs 10/03/2014 Blood Pressure 1: 110/76 Code : 8480-6 Heart Rate 1: 82 bpm 08/31/2014 Blood Pressure 1: 118/74 Code : 8480-6 BMI: 35.2 Code : 29087-8 Heart Rate 1 : 76 bpm Height: 5'4" Temperature: 36.4 (C) / 97.5 (F) Weight: 205 lbs 02/21/2014 Blood Pressure 1: 132/78 Code : 8480-6 Heart Rate 1: 80 bpm SpO2: 98% 02/14/2014 Blood Pressure 1: 120/70 Code : 8480-6 Heart Rate 1: 72 bpm Height: Weight: 01/17/2014 Blood Pressure 1: 116/90 Code : 8480-6 BMI: 35.0 Code : 74970-3 Height: 5'4" Weight: 204 lbs 11/14/2013 Blood Pressure 1: 112/76 Code : 8480-6 BMI: 35.7 Code : 41646-0 Heart Rate 1 : 80 bpm Height: [...] data Encounters Encounter Performer Location Codes Date ([id number]) 67826 EST. PATIENT, LEVEL IV Diagnosis: Secondary amenorrhea[ICD10: N91.1] Diagnosis: Generalized abdominal pain[ICD10: R10.84] Diagnosis: Gas pain[ICD10: R14.1] [facility] CPT-4: 21927 11/04/2018 ([id number]) 44554 EST. PATIENT, LEVEL III Diagnosis: Right upper quadrant pain[ICD10: R10.11] Diagnosis: Urinary tract infection, site not specified[ICD10: N39.0] [facility] CPT-4: 36750 07/19/2018 ([id number]) PREV VISIT EST AGE 18-39 Diagnosis: Encounter for general adult medical examination without abnormal findings[ICD10: Z00.00] Krystal Cabral MD, [facility] CPT-4: 98932 06/10/2018 24119 EST. PATIENT, LEVEL III Diagnosis: Pain in right knee[ICD10: M25.561] [facility] CPT-4: 41483 12/08/2017 ([id number]) PREV VISIT EST AGE 18-39 Diagnosis: Encounter for general adult medical examination without abnormal findings[ICD10: Z00.00] Diagnosis: Essential (primary) hypertension[ICD10: I10] Diagnosis: Impaired fasting glucose[ICD10: R73.01] Diagnosis: Personal history of gestational diabetes[ICD10: Z86.32] [facility] CPT-4: 97509 10/13/2016 ([id number]) 58532 EST. PATIENT, LEVEL II Diagnosis: Rash[ICD9: 782.1] [facility] CPT-4: 77600 10/03/2014 ([id number]) 01266 EST. PATIENT, LEVEL III Diagnosis: COUGH[ICD9: 786.2] Diagnosis: FEVER NOS[ICD9: 780.60] Diagnosis: Influenza[ICD9: 487.1] [facility] CPT-4: 34153 08/31/2014 ([id number]) Miscellaneous no charge Diagnosis: BENIGN ADDISON SKIN TRUNK[ICD9: 216.5] [facility] CPT-4: 23388 02/21/2014 ([id number]) 27534 EST. PATIENT, LEVEL III Diagnosis: ESSENTIAL HYPERTENSION[SNOMED: 69205357] [facility] CPT-4: 18507 01/17/2014 Office outpatient new 30 minutes Diagnosis: ESSENTIAL HYPERTENSION[SNOMED: 98520089] Diagnosis: Mole of skin[ICD9: 216.9] [facility] CPT-4: 10032 11/14/2013 Plan of Care Planned Activity Notes Codes Status Date Visit Plan: Secondary amenorrhea - recommend pelvic ultrasound for further evaluate Generalized abdominal pain-discussed CT abd/ pelvis if ultrasound negative-check labs and UA as well 11/04/2018 Patient Education: Patient Medication Summary Completed [...] of plan. 07/19/2018 Appointment: Krystal Rosales WPtel: [phone] [place] (15 min) Moderate 07/19/2018 Patient Education: [...] renal functioning. 06/10/2018 Appointment: Krystal Rosales WPtel: [phone] [place] (15 min) Moderate 06/10/2018 Patient Education: Patient Medication Summary Completed 06/10/2018 Visit Plan: Right knee pain-recommend rest, ice and anti inflammatories as directed-call if symptoms do not resolve and we will order imaging studies. 12/08/2017 Appointment: Krystal Rosales WPtel: [phone] [place] (30 min) Complex 12/08/2017 Patient Education: Patient Medication Summary Completed 12/08/2017 Appointment: Bibiana Thomas WPtel: [facility] [place] (30 min) Complex 09/29/2017 Visit Plan: [...] Hgb A1C 10/13/2016 Appointment: Krystal Rosales WPtel: [address] [place], [place] [phone] (15 min) Moderate 10/13/2016 Patient Education: Patient Medication Summary Completed 10/13/2016 Patient Education: Obesity Completed 10/13/2016 Patient Education: Hypertension Completed 10/13/2016 Visit Plan: Rash - RX for ketoconazole given to patient to fill and use on chest wall call if not improving, will need to reschedule the removal of the mole. 10/03/2014 Appointment: Leonor Cabral WPtel: [address] [place], [place] [phone] Surgical Procedure 10/03/2014 Patient Education: Patient Medication [...] FLU Pending 08/31/2014 Appointment: Leonor Cabral WPtel: [address] [place], [place] [phone] Follow up 07/11/2014 Visit Plan: Suture removal-sites clear 02/21/2014 Appointment: Leonor Cabral WPtel: [address] [place], [place] [phone] suture removal 02/21/2014 Patient Education: Patient Medication Summary Completed 02/21/2014 Visit Plan: Wound Instructions - Pt was instructed to keep the wound clean, wash with antibacterial soap, use triple antibiotic ointment, call if redness, pustular drainage, or any other acute concerns. 02/14/2014 Appointment: Leonor Cabral WPtel: [address] [place], [place] [phone] Surgical Procedure 02/14/2014 Patient Education: Patient Medication Summary Completed 02/14/2014 Visit Plan: Hypertension - well controlled - continue with current medications, continue with no added salt diet. Pt has been encouraged to exercise daily. The pt has been advised to call the office if there are any acute concerns about change in blood pressure readings at home. 01/17/2014 [phone] Follow up 01/17/2014 Patient Education: Patient Medication [...] blood pressure readings at home. Moles-monitor for [id number] in 3 months and plan for removal if changing. 11/14/2013 [facility]ment: [facility] [address] [phone] New Patient 11/14/2013 Patient Education: Patient Medication [...] blood pressure readings at home. Moles-monitor for [id number] in 3 months and plan for removal [...]
--- OUTSIDE RECORDS SUMMARY | 2018-11-16 08:50 | XMS REPORT | CCD ---
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 Name Role Phone Leonor Cabral PP Unavailable CCM Unavailable Summary Purpose Interface Exchange Insurance Providers Payer name Policy type / Coverage type Covered alliance party ID Effective Begin Date Effective End Date [facility] [id number] 2016 Unknown Family history Mother Diagnosis Age [...] Unknown House 11/14/[address]: 865096401 Never smoker 11/14/[address]: 280018853 Never drinks alcohol 11/14/2013 Allergies, Adverse Reactions, Alerts Substance Reaction Codes Entered Date Inactivated Date Status clindamycin HCl hives RxNorm: 2582 11/14/2013 No Inactive Date Active bactrim RxNorm: 356605 08/05/2018 No Inactive Date Active PENICILLINS rash Unknown 11/14/2013 No Inactive Date Active Past Medical History Illness Codes Condition Status Onset Date Resolved Date Urinary tract infection, site not specified ICD-9: [...] Problems Condition Codes Effective Dates Condition Status Urinary tract infection, site not specified ICD-9: [...] Bactrim DS 800 mg-160 mg tablet RxNorm: 990194 1 Tablet(s) PO BID 07/29/2018 08/04/2018 Inactive take probiotic BID while on abx Bactrim DS 800 mg-160 mg tablet RxNorm: 324712 1 Tablet(s) PO BID 07/29/2018 07/28/2018 Inactive Voltaren 1 % topical gel RxNorm: 687813 4 Gram(s) TOP QID 12/0812/17/2017 Inactive metoprolol succinate ER 25 mg tablet,extended release 24 hr RxNorm: 445192 Tablet (s) 1/2 TABLET(S) PO DAILY 12/08/2017 Inactive metoprolol succinate ER 25 mg tablet,extended release 24 hr RxNorm: 613569 Tablet (s) 1 TABLET(S) PO DAILY 10/13/20162017 Inactive Tamiflu 75 mg capsule RxNorm: 505018 1 Capsule(s) PO BID 201409/04/2014 Inactive [SAVINGS FOR UNINSURED PATIENTS -- BIN:[id number], PCN: [id number], Group: [id number], ID # [id number], Process claim through [employer], for questions: . THIS IS NOT INSURANCE.] metoprolol succinate ER 25 mg tablet,extended release 24 hr RxNorm: 397054 1 TABLET(S) PO DAILY 03/24/2014 09/19/2014 Inactive metoprolol succinate ER 25 mg tablet,extended release 24 hr RxNorm: 483515 1 Tablet(s) PO daily 11/14/2013 03/13/2014 Inactive Fish Oil oral RxNorm: 2532455 oral No Start Date Active Probiotic oral RxNorm : 6205 oral No Start Date Active Multivitamin & Mineral Formula oral RxNorm: oral No Start Date Active magnesium 200 mg tablet RxNorm: 1 Tablet(s) PO daily No Start Date 10/12/2016 Inactive Fish Oil 1,000 mg capsule RxNorm: 1 Capsule(s) PO daily No Start Date 12/07/2017 Inactive fenugreek seed extract 500 mg capsule RxNorm: 2 Capsule(s) PO TID No Start Date 10/12/2016 Inactive labetalol 200 mg tablet RxNorm: 133086 1 Tablet(s) PO BID No Start Date 11/13/2013 Inactive Medication Administered No Medication Administered data Immunizations Vaccine Codes Date Status Influenza CVX: 141 05/04/2018 completed Influenza CVX: 141 05/02/2017 completed Diphtheria, Tetanus, Pertussis CVX: 20 completed Influenza CVX: 141 10/25/2015 completed PPD Unknown 02/21/2014 completed Assessments Condition Codes Effective Dates Urinary tract infection, site not specified ICD-10: [...] lesion ICD-9: 709.9 2013 ESSENTIAL HYPERTENSION SNOMED: 11552220 ICD-9: 401.9 01/17/2014 Mole of skin ICD-9: 216.9 11/14/2013 Reason For Visit Reason For Visit Effective Dates Notes back pain 07/19/2018 well woman exam (18-39 years) 06/10/2018 knee pain 12/08/2017 well woman exam (18-39 years) 10/13/2016 office procedure 10/03/2014 Here to have a mole removed under breast cough 08/31/2014 wound follow up 02/21/2014 removal of alonzo skin lesion 02/14/2014 headache 01/17/2014 blood pressure followup 11/14/2013 Results Observation Observation Code Item Item Code Result Date Comp Metabolic Xzd167 NA 139 mEq/L 06/10/2018 Comp Metabolic Zph368 K 4.2 mEq/L 06/10/2018 Comp Metabolic Qzh539 CL 105 mEq/L 06/10/2018 Comp Metabolic Jud078 CO2 27.0 mEq/L 06/10/2018 Comp Metabolic Pnp042 ANION GAP 11 06/10/2018 Comp Metabolic Cst513 GLUCOSE 85 mg/dL 06/10/2018 Comp Metabolic Lcv714 Creat 0.7 mg/dL 06/10/2018 Comp Metabolic Zrg106 eGFR 105 ml/min/1.73m2 06/10/2018 Comp Metabolic Tma454 BUN 22 mg/dL 06/10/2018 Comp Metabolic Obq504 B/C Ratio 31.9 Ratio 06/10/2018 Comp Metabolic Oss872 CALCIUM 9.1 mg/dL 06/10/2018 Comp Metabolic Gff302 ALK PHOS 39 U/L 06/10/2018 Comp Metabolic Mes789 AST(SGOT) 14 U/L 06/10/2018 Comp Metabolic Iea620 ALT(SGPT) 15 U/L 06/10/2018 Comp Metabolic Oyz454 BILI T 0.6 mg/dL 06/10/2018 Comp Metabolic Gsr122 ALBUMIN 4.3 g/dL 06/10/2018 Comp Metabolic Gmy581 TPRO 6.2 g/dL 06/10/2018 Comp Metabolic Zqe312 GLOB 1.9 g/dL 06/10/2018 Comp Metabolic Bsx469 A/G Ratio 2.2 Ratio 06/10/2018 Comp Metabolic Jls068 Osmo 280 mOsmo 06/10/2018 Cbc With Differential [...] 30.9 pg 06/10/2018 Cbc With Differential Ord2 [place]% 6.1 % 06/10/2018 Cbc With Differential Ord2 [...] 2.01 K/ul 06/10/2018 Cbc With Differential Ord2 [place] ABS# 0.2 K/ul 06/10/2018 Cbc With Differential [...] 13.8 g/dl 10/15/2016 Cbc With Differential Ord2 Neut% 48.1 % 10/15/2016 Cbc With Differential Ord2 HCT 41.0 % 10/15/2016 Cbc With Differential Ord2 MCV 85.4 fl 10/15/2016 Cbc With Differential Ord2 Lymph% 42.7 % 10/15/2016 Cbc With Differential Ord2 MCH 28.8 pg 10/15/2016 Cbc With Differential Ord2 [place]% 7.1 % 10/15/2016 Cbc With Differential Ord2 Eos% 1.9 % 10/15/2016 Cbc With Differential Ord2 MCHC 33.7 pg 10/15/2016 Cbc With Differential Ord2 Baso% 0.2 % 10/15/2016 Cbc With Differential Ord2 PLT 266 K/ul 10/15/2016 Cbc With Differential Ord2 Neut ABS# 2.32 K/ul 10/15/2016 Cbc With Differential Ord2 RDW 14.0 % 10/15/2016 Cbc With Differential Ord2 Lymph ABS# 2.06 K/ul 10/15/2016 Cbc With Differential Ord2 [place] ABS# 0.3 K/ul 10/15/2016 Cbc With Differential Ord2 Eos ABS# 0.1 K/ul 10/15/2016 Cbc With Differential Ord2 Baso ABS# 0.0 K/ul 10/15/2016 Comp Metabolic Jwa119 NA 139 mEq/L 10/15/2016 Comp Metabolic Xnk453 K 4.2 mEq/L 10/15/2016 Comp Metabolic Tzl671 CL 106 mEq/L 10/15/2016 Comp Metabolic Fbi569 CO2 26.0 mEq/L 10/15/2016 Comp Metabolic Vvh337 ANION GAP 11 10/15/2016 Comp Metabolic Vws912 GLUCOSE 82 mg/dL 10/15/2016 Comp Metabolic Abl673 Creat 0.9 mg/dL 10/15/2016 Comp Metabolic Mlb552 eGFR 79 ml/min/1.73m2 10/15/2016 Comp Metabolic Phv806 BUN 16 mg/dL 10/15/2016 Comp Metabolic Kxy355 B/C Ratio 18.0 Ratio 10/15/2016 Comp Metabolic Hoa537 CALCIUM 9.1 mg/dL 10/15/2016 Comp Metabolic Clq627 ALK PHOS 59 U/L 10/15/2016 Comp Metabolic Vdb134 AST(SGOT) 18 U/L 10/15/2016 Comp Metabolic Mxn515 ALT(SGPT) 22 U/L 10/15/2016 Comp Metabolic Ijb786 BILI T 0.4 mg/dL 10/15/2016 Comp Metabolic Gin499 ALBUMIN 4.0 g/dL 10/15/2016 Comp Metabolic Sfm309 TPRO 6.3 g/dL 10/15/2016 Comp Metabolic Oyv183 GLOB 2.3 g/dL 10/15/2016 Comp Metabolic Ilz795 A/G Ratio 1.8 Ratio 10/15/2016 Comp Metabolic Jmi743 Osmo 278 mOsmo 10/15/2016 %Hba1C Cxq739 % HbA1c 66123-0 5.4 % 10/15/2016 %Hba1C Ofv595 Gluc Ave 108 mg/dL 10/15/2016 Tsh Ord6 hTSH II 1.45 uIU/mL 10/15/2016 Lipid Ord30 CHOL 206 mg/dL 10/15/2016 Lipid Ord30 HDL 51.0 mg/dl 10/15/2016 Lipid Ord30 TRIG 43 mg/dL 10/15/2016 Lipid Ord30 LDL 146 mg/dL 10/15/2016 Lipid Ord30 C/HDL 4.0 Ratio 10/15/2016 UA 72920 Specific [place] 1.015 DateTime(Free Text in ) UA 60182 PH 6.0 DateTime(Free Text in ) UA 41649 Protein n DateTime(Free Text in ) UA 67858 Blood trace DateTime(Free Text in ) UA 34872 Bilirubin n DateTime(Free Text in ) UA 17348 Ketones n DateTime(Free Text in ) UA 88677 Urobilinogen n DateTime(Free Text in ) UA 47468 Nitrite n DateTime(Free Text in ) UA 01361 Leukocytes n DateTime(Free Text in ) UA 00342 Glucose n DateTime(Free Text in ) Review of Systems System Result Effective Dates Constitutional recent illness 07/19/2018 Constitutional No anorexia [...] masses 11/14/2013 None Full Exam - General 1994 [...] Codes Date URINALYSIS NONAUTO W/O SCOPE CPT-4: 88941 08/05/2018 BIOPSY SKIN LESION CPT -4: 86431 02/14/2014 BIOPSY SKIN ADD-ON CPT -4: 50834 02/14/2014 Vital Signs Date Vital 07/19/2018 Blood Pressure 1: 120/80 Code : 8480-6 BMI: 23.3 Code : 00697-5 Heart Rate 1 : 77 bpm Height: 5'4" SpO2: 99% Temperature: 37.2 (C) / 98.9 (F) Weight: 136 lbs 06/10/2018 Blood Pressure 1: 116/78 Code : 8480-6 BMI: 23.3 Code : 27886-9 Heart Rate 1 : 69 bpm Height: 5'4" SpO2: 99% Weight: 136 lbs 12/08/2017 Blood Pressure 1: 130/86 Code : 8480-6 BMI: 29.7 Code : 82024-3 Heart Rate 1 : 67 bpm Height: 5'4" SpO2: 99% Weight: 173 lbs 10/13/2016 Blood Pressure 1: 128/92 Code : 8480-6 BMI: 32.1 Code : 13287-2 Heart Rate 1 : 87 bpm Height: 5'4" SpO2: 98% Weight: 187 lbs 10/03/2014 Blood Pressure 1: 110/76 Code : 8480-6 Heart Rate 1: 82 bpm 08/31/2014 Blood Pressure 1: 118/74 Code : 8480-6 BMI: 35.2 Code : 17474-6 Heart Rate 1 : 76 bpm Height: 5'4" Temperature: 36.4 (C) / 97.5 (F) Weight: 205 lbs 02/21/2014 Blood Pressure 1: 132/78 Code : 8480-6 Heart Rate 1: 80 bpm SpO2: 98% 02/14/2014 Blood Pressure 1: 120/70 Code : 8480-6 Heart Rate 1: 72 bpm Height: Weight: 01/17/2014 Blood Pressure 1: 116/90 Code : 8480-6 BMI: 35.0 Code : 84737-3 Height: 5'4" Weight: 204 lbs 11/14/2013 Blood Pressure 1: 112/76 Code : 8480-6 BMI: 35.7 Code : 49294-4 Heart Rate 1 : 80 bpm Height: 5'4" Weight: 208 lbs Functional Status No Functional Status data History of Present Illness Symptom Name Status Result Effective Date Notes Location in the right lower back area [...] data Encounters Encounter Performer Location Codes Date ( 51303 EST. PATIENT, LEVEL III Diagnosis: Right upper quadrant pain[ICD10: R10.11] Diagnosis: Urinary tract infection, site not specified[ICD10: N39.0] Krystal Cabral MD , [facility] CPT-4: 94118 07/19/2018 ([id number]) PREV VISIT EST AGE 18-39 Diagnosis: Encounter for general adult medical examination without abnormal findings[ICD10: Z00.00] Krystal Cabral MD, [facility] CPT-4: 29088 06/10/2018 15292 EST. PATIENT, LEVEL III Diagnosis: Pain in right knee[ICD10: M25.561] Krystal Cabral MD, [facility] CPT-4: 00013 12/08/2017 ([id number]) PREV VISIT EST AGE 18-39 Diagnosis: Encounter for general adult medical examination without abnormal findings[ICD10: Z00.00] Diagnosis: Essential (primary) hypertension[ICD10: I10] Diagnosis: Impaired fasting glucose[ICD10: R73.01] Diagnosis: Personal history of gestational diabetes[ICD10: Z86.32] Krystal Cabral MD, [facility] CPT-4: 54529 10/13/2016 ([id number] 10511 EST. PATIENT, LEVEL II Diagnosis: Rash[ICD9: 782.1] [facility] CPT-4: 61912 10/03/2014 ([id number]) 87658 EST. PATIENT, LEVEL III Diagnosis: COUGH[ICD9: 786.2] Diagnosis: FEVER NOS[ICD9: 780.60] Diagnosis: Influenza[ICD9: 487.1] [facility] CPT-4: 26349 08/31/2014 ([id number]) Miscellaneous no charge Diagnosis: BENIGN ADDISON SKIN TRUNK[ICD9: 216.5] [facility] CPT-4: 07402 02/21/2014 ([id number]) 84628 EST. PATIENT, LEVEL III Diagnosis: ESSENTIAL HYPERTENSION[SNOMED: 75832506] [facility] CPT-4: 21866 01/17/2014 Office outpatient new 30 minutes Diagnosis: ESSENTIAL HYPERTENSION[SNOMED: 61583951] Diagnosis: Mole of skin[ICD9: 216.9] [facility] CPT-4: 70404 11/14/2013 Plan of Care Planned Activity Notes Codes Status Date Patient Education: Patient Medication Summary Completed 08/05/2018 Care Plan: Urine Culture Pending 08/05/2018 Visit Plan: Right flank pain -UTI -will send patient for labs and KUB to check for kidney stone -continue abx -culture will be back Thursday -instructed patient to increase fluids -lets us know if pain does not resolve or if any worse and we will do a CT abd/pelvis for further evaluation. Patient verbalized understanding of plan. 07/19/2018 Appointment: Krystal Rosales WPtel: [address] [place], [place] [phone] (15 min) Moderate 07/19/2018 Patient Education: Patient [...] renal functioning. 06/10/2018 Appointment: Krystal Rosales WPtel: [facility] [place] [address] (15 min) Moderate 06/10/2018 Patient Education: Patient Medication Summary Completed 06/10/2018 Visit Plan: Right knee pain-recommend rest, ice and anti inflammatories as directed-call if symptoms do not resolve and we will order imaging studies. 12/08/2017 Appointment: Krystal Rosales WPtel: [address] [place] [address] (30 min) Complex 12/08/2017 Patient Education: Patient Medication Summary Completed 12/08/2017 Appointment: Bibiana Thomas WPtel: [address] [place] [address] (30 min) Complex 09/29/2017 Visit Plan: Well [...] Hgb A1C 10/13/2016 Appointment: Krystal Rosales WPtel: [address] [place] [address] (15 min) Moderate 10/13/2016 Patient Education: Patient Medication Summary Completed 10/13/2016 Patient Education: Obesity Completed 10/13/2016 Patient Education: Hypertension Completed 10/13/2016 Visit Plan: Rash - RX for ketoconazole given to patient to fill and use on chest wall call if not improving, will need to reschedule the removal of the mole. 10/03/2014 Appointment: Leonor Cabral WPtel: [facility] Surgical Procedure 10/03/2014 Patient Education: Patient Medication [...] C A/B FLU Pending 08/31/2014 Appointment: Leonor Cabarl WPtel: [address] [place], [place] [phone] Follow up 07/11/2014 Visit Plan: Suture removal-sites clear 02/21/2014 Appointment: Leonor Cabral WPtel: [address] [place], [place] [phone] suture removal 02/21/2014 Patient Education: Patient Medication Summary Completed 02/21/2014 Visit Plan: Wound Instructions - Pt was instructed to keep the wound clean, wash with antibacterial soap, use triple antibiotic ointment, call if redness, pustular drainage, or any other acute concerns. 02/14/2014 Appointment: Leonor Cabral WPtel: [address] [place], [place] [phone] Surgical Procedure 02/14/2014 Patient Education: Patient Medication Summary Completed 02/14/2014 Visit Plan: Hypertension - well controlled - continue with current medications, continue with no added salt diet. Pt has been encouraged to exercise daily. The pt has been advised to call the office if there are any acute concerns about change in blood pressure readings at home. 01/17/2014 Appointment: Krystal Rosales WPtel: [address] [place], [place] [phone] Follow up 01/17/2014 Patient Education: Patient Medication [...] blood pressure readings at home. Moles-monitor for [id number] in 3 months and plan for removal if changing. 11/14/2013 Appointment: Krystal Rosales WPtel: [address] [place], [place] [phone] New Patient 11/14/2013 Patient Education: Patient Medication [...] blood pressure readings at home. Moles-monitor for [id number] in 3 months and plan for removal if changing. . Well Adult - pt was counseled [...]
--- OUTSIDE RECORDS SUMMARY | 2018-11-16 08:51 | XMS REPORT | CCD ---
Author Author [facility] Address [address] [place] [address] Phone Care Team Providers Care Calciminer Name Role Phone Leonor Cabral PP Unavailable CCM Unavailable Summary Purpose Interface Exchange Insurance Providers Payer name Policy type / Coverage type Covered green party ID Effective Begin Date Effective End Date [facility] [id number] 2016 Unknown Family history Mother Diagnosis Age [...] Unknown House 11/14/[address]: 423585595 Never smoker 11/14/[address]: 656105463 Never drinks alcohol 11/14/2013 Allergies, Adverse Reactions, Alerts Substance Reaction Codes Entered Date Inactivated Date Status clindamycin HCl hives RxNorm: 2582 11/14/2013 No Inactive Date Active PENICILLINS rash Unknown 11/14/2013 No Inactive Date Active Past Medical History Illness Codes Condition Status Onset Date Resolved Date Right upper quadrant pain ICD-9: 789.01 ICD-10: R10.11 Active 07/19/2018 Unknown Urinary tract infection, site not specified ICD-9: 599.0 ICD-10: N39.0 Active 07/19/2018 Unknown Encounter for general adult [...] Problems Condition Codes Effective Dates Condition Status Right upper quadrant pain ICD-9: 789.01 ICD-10: R10.11 07/19/2018 Active Urinary tract infection, site not specified ICD-9: 599.0 ICD-10: N39.0 07/19/2018 Active Encounter for general adult medical [...] Bactrim DS 800 mg-160 mg tablet RxNorm: 405457 1 Tablet(s) PO BID 07/29/2018 08/04/2018 Active take probiotic BID while on abx Bactrim DS 800 mg-160 mg tablet RxNorm: 655298 1 Tablet(s) PO BID 07/29/2018 07/28/2018 Inactive Voltaren 1 % topical gel RxNorm: 683416 4 Gram(s) TOP QID 12/0812/17/2017 Inactive metoprolol succinate ER 25 mg tablet,extended release 24 hr RxNorm: 283958 Tablet (s) 1/2 TABLET(S) PO DAILY 12/08/2017 Inactive metoprolol succinate ER 25 mg tablet,extended release 24 hr RxNorm: 953756 Tablet (s) 1 TABLET(S) PO DAILY 10/13/20162017 Inactive Tamiflu 75 mg capsule RxNorm: 463739 1 Capsule(s) PO BID 201409/04/2014 Inactive [SAVINGS FOR UNINSURED PATIENTS -- BIN:[id number], PCN: [id number], Group: [id number], ID # [id number], Process claim through [employer], for questions: . THIS IS NOT INSURANCE.] metoprolol succinate ER 25 mg tablet,extended release 24 hr RxNorm: 022316 1 TABLET(S) PO DAILY 03/24/2014 09/19/2014 Inactive metoprolol succinate ER 25 mg tablet,extended release 24 hr RxNorm: 826394 1 Tablet(s) PO daily 11/14/2013 03/13/2014 Inactive Fish Oil oral RxNorm: 5367689 oral No Start Date Active Probiotic oral [...] 10/12/2016 Inactive labetalol 200 mg tablet RxNorm: 388442 1 Tablet(s) PO BID No Start Date 11/13/2013 Inactive Medication Administered No Medication Administered data Immunizations Vaccine Codes Date Status Influenza CVX: 141 05/04/2018 completed Influenza CVX: 141 05/02/2017 completed Diphtheria, Tetanus, Pertussis CVX: 20 completed Influenza CVX: 141 10/25/2015 completed PPD Unknown 02/21/2014 completed Assessments Condition Codes Effective Dates Urinary tract infection, site not specified ICD-10: N39.0 ICD-9: 599.0 07/19/2018 Right upper quadrant pain ICD-10: R10.11 ICD-9: 789.01 07/19/2018 Encounter for general adult medical examination without abnormal findings ICD-10: Z00.00 ICD-9: V70.0 06/10/2018 Pain in right knee ICD-10: M25.561 ICD-9: 719.46 12/08/2017 Personal history of gestational diabetes ICD-10: Z86.32 ICD-9: V12.21 10/13/2016 Impaired fasting glucose ICD-10: R73.01 ICD-9: 790.21 10/13/2016 Essential (primary) hypertension ICD-10: I10 ICD-9: 401.9 10/13/2016 Rash ICD-9: 782.1 10/03/2014 Influenza ICD-9: 487.1 08/31/2014 FEVER NOS ICD-9: 780.60 08/31/2014 COUGH ICD-9: 786.2 08/31/2014 BENIGN ADDISON SKIN TRUNK ICD-9: 216.5 2013 Changing skin lesion ICD-9: 709.9 2013 ESSENTIAL HYPERTENSION SNOMED: 64209335 ICD-9: 401.9 01/17/2014 Mole of skin ICD-9: [...] Item Item Code Result Date Comp Metabolic Hqz012 NA 139 mEq/L 06/10/2018 Comp Metabolic Ayo114 K 4.2 mEq/L 06/10/2018 Comp Metabolic Wxm367 CL 105 mEq/L 06/10/2018 Comp Metabolic Xws297 CO2 27.0 mEq/L 06/10/2018 Comp Metabolic Xzw752 ANION GAP 11 06/10/2018 Comp Metabolic Yka674 GLUCOSE 85 mg/dL 06/10/2018 Comp Metabolic Wep275 Creat 0.7 mg/dL 06/10/2018 Comp Metabolic Sod313 eGFR 105 ml/min/1.73m2 06/10/2018 Comp Metabolic Bkx580 BUN 22 mg/dL 06/10/2018 Comp Metabolic Lls600 B/C Ratio 31.9 Ratio 06/10/2018 Comp Metabolic Gii218 CALCIUM 9.1 mg/dL 06/10/2018 Comp Metabolic Vrq793 ALK PHOS 39 U/L 06/10/2018 Comp Metabolic Xdu489 AST(SGOT) 14 U/L 06/10/2018 Comp Metabolic Wfw952 ALT(SGPT) 15 U/L 06/10/2018 Comp Metabolic Bau652 BILI T 0.6 mg/dL 06/10/2018 Comp Metabolic Jhq365 ALBUMIN 4.3 g/dL 06/10/2018 Comp Metabolic Qow246 TPRO 6.2 g/dL 06/10/2018 Comp Metabolic Bqn340 GLOB 1.9 g/dL 06/10/2018 Comp Metabolic Swf357 A/G Ratio 2.2 Ratio 06/10/2018 Comp Metabolic Obe958 Osmo 280 mOsmo 06/10/2018 Cbc With Differential Ord2 WBC 3.79 K/ul 06/10/2018 Cbc With Differential Ord2 RBC 4.57 M/ul 06/10/2018 Cbc With Differential Ord2 HGB 14.1 g/dl 06/10/2018 Cbc With Differential Ord2 HCT 40.1 % 06/10/2018 Cbc With Differential Ord2 Neut% 39.0 % 06/10/2018 Cbc With Differential Ord2 Lymph% 53.0 % 06/10/2018 Cbc With Differential Ord2 MCV 87.7 fl 06/10/2018 Cbc With Differential Ord2 MCH 30.9 pg 06/10/2018 Cbc With Differential Ord2 Centre% 6.1 % 06/10/2018 Cbc With Differential Ord2 [...] 2.01 K/ul 06/10/2018 Cbc With Differential Ord2 Centre ABS# 0.2 K/ul 06/10/2018 Cbc With Differential [...] 41.0 % 10/15/2016 Cbc With Differential Ord2 Lymph% 42.7 % 10/15/2016 Cbc With Differential Ord2 MCV 85.4 fl 10/15/2016 Cbc With Differential Ord2 Centre% 7.1 % 10/15/2016 Cbc With Differential Ord2 MCH 28.8 pg 10/15/2016 Cbc With Differential Ord2 Eos% [...] 2.06 K/ul 10/15/2016 Cbc With Differential Ord2 Centre ABS# 0.3 K/ul 10/15/2016 Cbc With Differential Ord2 Eos ABS# 0.1 K/ul 10/15/2016 Cbc With Differential Ord2 Baso ABS# 0.0 K/ul 10/15/2016 Comp Metabolic Pob812 NA 139 mEq/L 10/15/2016 Comp Metabolic Rzl932 K 4.2 mEq/L 10/15/2016 Comp Metabolic Ite399 CL 106 mEq/L 10/15/2016 Comp Metabolic Yaw399 CO2 26.0 mEq/L 10/15/2016 Comp Metabolic Ety172 ANION GAP 11 10/15/2016 Comp Metabolic Hra338 GLUCOSE 82 mg/dL 10/15/2016 Comp Metabolic Swm370 Creat 0.9 mg/dL 10/15/2016 Comp Metabolic Hef808 eGFR 79 ml/min/1.73m2 10/15/2016 Comp Metabolic Jmt594 BUN 16 mg/dL 10/15/2016 Comp Metabolic Was109 B/C Ratio 18.0 Ratio 10/15/2016 Comp Metabolic Pbr725 CALCIUM 9.1 mg/dL 10/15/2016 Comp Metabolic Ymz525 ALK PHOS 59 U/L 10/15/2016 Comp Metabolic Qpn938 AST(SGOT) 18 U/L 10/15/2016 Comp Metabolic Dyk122 ALT(SGPT) 22 U/L 10/15/2016 Comp Metabolic Qhz608 BILI T 0.4 mg/dL 10/15/2016 Comp Metabolic Wcp167 ALBUMIN 4.0 g/dL 10/15/2016 Comp Metabolic Gwo576 TPRO 6.3 g/dL 10/15/2016 Comp Metabolic Vde819 GLOB 2.3 g/dL 10/15/2016 Comp Metabolic Lmr498 A/G Ratio 1.8 Ratio 10/15/2016 Comp Metabolic Wuf219 Osmo 278 mOsmo 10/15/2016 %Hba1C Clq049 % HbA1c 19757-9 5.4 % 10/15/2016 %Hba1C Gnf019 Gluc Ave 108 mg/dL 10/15/2016 Tsh Ord6 hTSH II 1.45 uIU/mL 10/15/2016 Lipid Ord30 CHOL 206 mg/dL 10/15/2016 Lipid Ord30 HDL 51.0 mg/dl 10/15/2016 Lipid Ord30 TRIG 43 mg/dL 10/15/2016 Lipid Ord30 LDL 146 mg/dL 10/15/2016 Lipid Ord30 C/HDL 4.0 Ratio 10/15/2016 Review of Systems System Result Effective Dates [...] accomodation 11/14/2013 None Procedures Procedure Codes Date BIOPSY SKIN LESION CPT -4: 92863 02/14/2014 BIOPSY SKIN ADD-ON CPT -4: 87214 02/14/2014 Vital Signs Date Vital 07/19/2018 Blood Pressure 1: 120/80 Code : 8480-6 BMI: 23.3 Code : 82287-9 Heart Rate 1 : 77 bpm Height: 5'4" SpO2: 99% Temperature: 37.2 (C) / 98.9 (F) Weight: 136 lbs 06/10/2018 Blood Pressure 1: 116/78 Code : 8480-6 BMI: 23.3 Code : 52985-1 Heart Rate 1 : 69 bpm Height: 5'4" SpO2: 99% Weight: 136 lbs 12/08/2017 Blood Pressure 1: 130/86 Code : 8480-6 BMI: 29.7 Code : 99309-4 Heart Rate 1 : 67 bpm Height: 5'4" SpO2: 99% Weight: 173 lbs 10/13/2016 Blood Pressure 1: 128/92 Code : 8480-6 BMI: 32.1 Code : 29352-9 Heart Rate 1 : 87 bpm Height: 5'4" SpO2: 98% Weight: 187 lbs 10/03/2014 Blood Pressure 1: 110/76 Code : 8480-6 Heart Rate 1: 82 bpm 08/31/2014 Blood Pressure 1: 118/74 Code : 8480-6 BMI: 35.2 Code : 31587-1 Heart Rate 1 : 76 bpm Height: 5'4" Temperature: 36.4 (C) / 97.5 (F) Weight: 205 lbs 02/21/2014 Blood Pressure 1: 132/78 Code : 8480-6 Heart Rate 1: 80 bpm SpO2: 98% 02/14/2014 Blood Pressure 1: 120/70 Code : 8480-6 Heart Rate 1: 72 bpm Height: Weight: 01/17/2014 Blood Pressure 1: 116/90 Code : 8480-6 BMI: 35.0 Code : 13438-6 Height: 5'4" Weight: 204 lbs 11/14/2013 Blood Pressure 1: 112/76 Code : 8480-6 BMI: 35.7 Code : 52658-6 Heart Rate 1 : 80 bpm Height: [...] data Encounters Encounter Performer Location Codes Date () 61501 EST. PATIENT, LEVEL III Diagnosis: Right upper quadrant pain[ICD10: R10.11] Diagnosis: Urinary tract infection, site not specified[ICD10: N39.0] Krystal Cabral MD , [facility] CPT-4: 73264 07/19/2018 ([id number]) PREV VISIT EST AGE 18-39 Diagnosis: Encounter for general adult medical examination without abnormal findings[ICD10: Z00.00] Krystal Cabral MD, [facility] CPT-4: 40894 06/10/2018 82760 EST. PATIENT, LEVEL III Diagnosis: Pain in right knee[ICD10: M25.561] Krystal Cabral MD, [facility] CPT-4: 12060 12/08/2017 ([id number]) PREV VISIT EST AGE 18-39 Diagnosis: Encounter for general adult medical examination without abnormal findings[ICD10: Z00.00] Diagnosis: Essential (primary) hypertension[ICD10: I10] Diagnosis: Impaired fasting glucose[ICD10: R73.01] Diagnosis: Personal history of gestational diabetes[ICD10: Z86.32] Krystal Cabral MD, [facility] CPT-4: 02974 10/13/2016 ([id number]) 98559 EST. PATIENT, LEVEL II Diagnosis: Rash[ICD9: 782.1] Leonor Cabral MD, [facility] CPT-4: 16398 10/03/2014 ([id number]) 91962 EST. PATIENT, LEVEL III Diagnosis: COUGH[ICD9: 786.2] Diagnosis: FEVER NOS[ICD9: 780.60] Diagnosis: Influenza[ICD9: 487.1] [facility] CPT-4: 70459 08/31/2014 ([id number]) Miscellaneous no charge Diagnosis: BENIGN ADDISON SKIN TRUNK[ICD9: 216.5] [facility] CPT-4: 12625 02/21/2014 ([id number]) 35169 EST. PATIENT, LEVEL III Diagnosis: ESSENTIAL HYPERTENSION[SNOMED: 27875176] [facility] CPT-4: 71174 01/17/2014 Office outpatient new 30 minutes Diagnosis: ESSENTIAL HYPERTENSION[SNOMED: 34210171] Diagnosis: Mole of skin[ICD9: 216.9] Krystal Cabral MD, [facility] CPT-4: 34446 11/14/2013 Plan of Care Planned Activity Notes Codes Status Date Visit Plan: Right flank pain -UTI -will send patient for labs and KUB to check for kidney stone -continue abx -culture will be back Thursday -instructed patient to increase fluids -lets us know if pain does not resolve or if any worse and we will do a CT abd/pelvis for further evaluation. Patient verbalized understanding of plan. 07/19/2018 Appointment: Krystal Rosales WPtel: [address] [place], [place] [phone] [place] (15 min) Moderate 07/19/2018 Patient Education: [...] renal functioning. 06/10/2018 Appointment: Krystal Rosales WPtel: [address] [place], [place] [phone] [place] (15 min) Moderate 06/10/2018 Patient Education: Patient Medication Summary Completed 06/10/2018 Visit Plan: Right knee pain-recommend rest, ice and anti inflammatories as directed-call if symptoms do not resolve and we will order imaging studies. 12/08/2017 Appointment: Krystal Rosales WPtel: [phone] [place] (30 min) Complex 12/08/2017 Patient Education: Patient Medication Summary Completed 12/08/2017 Appointment: Bibiana Thomas WPtel: [facility] [place] (30 min) Complex 09/29/2017 Visit [...] Hgb A1C 10/13/2016 Appointment: Krystal Rosales WPtel: [phone] (15 min) Moderate 10/13/2016 Patient Education: Patient Medication Summary Completed 10/13/2016 Patient Education: Obesity Completed 10/13/2016 Patient Education: Hypertension Completed 10/13/2016 Visit Plan: Rash - RX for ketoconazole given to patient to fill and use on chest wall call if not improving, will need to reschedule the removal of the mole. 10/03/2014 Appointment: Leonor Cabral WPtel: [facility] Surgical Procedure 10/03/2014 Patient Education: Patient Medication [...] FLU Pending 08/31/2014 Appointment: Leonor Cabral WPtel: [facility] [place] Follow up 07/11/2014 Visit Plan: Suture removal-sites clear 02/21/2014 Appointment: Leonor Cabral WPtel: [phone] [facility] suture removal 02/21/2014 Patient Education: Patient Medication Summary Completed 02/21/2014 Visit Plan: Wound Instructions - Pt was instructed to keep the wound clean, wash with antibacterial soap, use triple antibiotic ointment, call if redness, pustular drainage, or any other acute concerns. 02/14/2014 [facility]ment[facility] [phone] [facility] [facility] 02/14/2014 Patient Education: Patient Medication Summary Completed 02/14/2014 Visit Plan: Hypertension - well controlled - continue with current medications, continue with no added salt diet. Pt has been encouraged to exercise daily. The pt has been advised to call the office if there are any acute concerns about change in blood pressure readings at home. 01/17/2014 [facility] [phone] [phone] Follow up 01/17/2014 Patient Education: Patient [...] blood pressure readings at home. Moles-monitor for [id number]-felcxfkx in 3 months and plan for removal if changing. 11/14/2013 App[facility]ment: [facility] [phone] [phone] New Patient 11/14/2013 Patient Education: Patient [...] blood pressure readings at home. Moles-monitor for kqfwrye-sa-wqburblo in 3 months and plan for removal [...]
--- OUTSIDE RECORDS SUMMARY | 2018-11-16 08:52 | XMS REPORT | CCD ---
Author Author [facility] Address [address] [place] [address] Phone Care Team Providers Care Renal Medicine Specialist Name Role Phone Leonor Cabral PP Unavailable CCM Unavailable Summary Purpose Interface Exchange Insurance Providers Payer name Policy type / Coverage type Covered democrat ID Effective Begin Date Effective End Date [facility] [id number] 2016 Unknown Family history Mother Diagnosis Age [...] Unknown House 11/14/[address]: 316031188 Never smoker 11/14/[address]: 343950282 Never drinks alcohol 11/14/2013 Allergies, Adverse Reactions, [...] Start Date Stop Date Status Fill Instructions Voltaren 1 % topical gel RxNorm: 182545 4 Gram(s) TOP QID 12/0812/17/2017 Inactive metoprolol succinate ER 25 mg tablet,extended release 24 hr RxNorm: 708668 Tablet (s) 1/2 TABLET(S) PO DAILY 12/08/2017 Inactive metoprolol succinate ER 25 mg tablet,extended release 24 hr RxNorm: 776709 Tablet (s) 1 TABLET(S) PO DAILY 10/13/20162017 Inactive Tamiflu 75 mg capsule RxNorm: 054098 1 Capsule(s) PO BID 201409/04/2014 Inactive [SAVINGS FOR UNINSURED PATIENTS -- [id number], PCN: [id number], Group: [id number], ID # [id number], Process claim through [employer], for questions: . THIS IS NOT INSURANCE.] metoprolol succinate ER 25 mg tablet,extended release 24 hr RxNorm: 108666 1 TABLET(S) PO DAILY 03/24/2014 09/19/2014 Inactive metoprolol succinate ER 25 mg tablet,extended release 24 hr RxNorm: 237999 1 Tablet(s) PO daily 11/14/2013 03/13/2014 Inactive Fish Oil oral RxNorm: 8093976 oral No Start Date Active Probiotic oral [...] 10/12/2016 Inactive labetalol 200 mg tablet RxNorm: 128475 1 Tablet(s) PO BID No Start Date [...] lesion ICD-9: 709.9 2013 ESSENTIAL HYPERTENSION SNOMED: 10245178 ICD-9: 401.9 01/17/2014 Mole of skin ICD-9: [...] Item Item Code Result Date Comp Metabolic Srz372 NA 139 mEq/L 06/10/2018 Comp Metabolic Vku445 K 4.2 mEq/L 06/10/2018 Comp Metabolic Jyy549 CL 105 mEq/L 06/10/2018 Comp Metabolic Cnh498 CO2 27.0 mEq/L 06/10/2018 Comp Metabolic Vzb288 ANION GAP 11 06/10/2018 Comp Metabolic Xkl162 GLUCOSE 85 mg/dL 06/10/2018 Comp Metabolic Xbu153 Creat 0.7 mg/dL 06/10/2018 Comp Metabolic Bcq029 eGFR 105 ml/min/1.73m2 06/10/2018 Comp Metabolic Vkx545 BUN 22 mg/dL 06/10/2018 Comp Metabolic Baq335 B/C Ratio 31.9 Ratio 06/10/2018 Comp Metabolic Dkh007 CALCIUM 9.1 mg/dL 06/10/2018 Comp Metabolic Iuz953 ALK PHOS 39 U/L 06/10/2018 Comp Metabolic Evt353 AST(SGOT) 14 U/L 06/10/2018 Comp Metabolic Ghh822 ALT(SGPT) 15 U/L 06/10/2018 Comp Metabolic Rfc634 BILI T 0.6 mg/dL 06/10/2018 Comp Metabolic Eww955 ALBUMIN 4.3 g/dL 06/10/2018 Comp Metabolic Gkv387 TPRO 6.2 g/dL 06/10/2018 Comp Metabolic Bvl185 GLOB 1.9 g/dL 06/10/2018 Comp Metabolic Qjt287 A/G Ratio 2.2 Ratio 06/10/2018 Comp Metabolic Vpv951 Osmo 280 mOsmo 06/10/2018 Cbc With Differential [...] 30.9 pg 06/10/2018 Cbc With Differential Ord2 [place]% 6.1 % 06/10/2018 Cbc With Differential Ord2 [...] 2.01 K/ul 06/10/2018 Cbc With Differential Ord2 [place] ABS# 0.2 K/ul 06/10/2018 Cbc With Differential [...] 28.8 pg 10/15/2016 Cbc With Differential Ord2 [place]% 7.1 % 10/15/2016 Cbc With Differential Ord2 [...] 2.06 K/ul 10/15/2016 Cbc With Differential Ord2 [place] ABS# 0.3 K/ul 10/15/2016 Cbc With Differential Ord2 Eos ABS# 0.1 K/ul 10/15/2016 Cbc With Differential Ord2 Baso ABS# 0.0 K/ul 10/15/2016 Comp Metabolic Gps378 NA 139 mEq/L 10/15/2016 Comp Metabolic Ohr587 K 4.2 mEq/L 10/15/2016 Comp Metabolic Ixs769 CL 106 mEq/L 10/15/2016 Comp Metabolic Qtc374 CO2 26.0 mEq/L 10/15/2016 Comp Metabolic Uwo814 ANION GAP 11 10/15/2016 Comp Metabolic Yse962 GLUCOSE 82 mg/dL 10/15/2016 Comp Metabolic Iui257 Creat 0.9 mg/dL 10/15/2016 Comp Metabolic Kgw441 eGFR 79 ml/min/1.73m2 10/15/2016 Comp Metabolic Kke083 BUN 16 mg/dL 10/15/2016 Comp Metabolic Hbg650 B/C Ratio 18.0 Ratio 10/15/2016 Comp Metabolic Xrx853 CALCIUM 9.1 mg/dL 10/15/2016 Comp Metabolic Hed419 ALK PHOS 59 U/L 10/15/2016 Comp Metabolic Trb602 AST(SGOT) 18 U/L 10/15/2016 Comp Metabolic Xca684 ALT(SGPT) 22 U/L 10/15/2016 Comp Metabolic Uik504 BILI T 0.4 mg/dL 10/15/2016 Comp Metabolic Fbt954 ALBUMIN 4.0 g/dL 10/15/2016 Comp Metabolic Lju403 TPRO 6.3 g/dL 10/15/2016 Comp Metabolic Wyo918 GLOB 2.3 g/dL 10/15/2016 Comp Metabolic Cvk640 A/G Ratio 1.8 Ratio 10/15/2016 Comp Metabolic Fze968 Osmo 278 mOsmo 10/15/2016 %Hba1C Lhz382 % HbA1c 09965-1 5.4 % 10/15/2016 %Hba1C Jha493 Gluc Ave 108 mg/dL 10/15/2016 Tsh Ord6 [...] Codes Date BIOPSY SKIN LESION CPT -4: 69341 02/14/2014 BIOPSY SKIN ADD-ON CPT -4: 30803 02/14/2014 Vital Signs Date Vital 07/19/2018 Blood Pressure 1: 120/80 Code : 8480-6 BMI: 23.3 Code : 33869-3 Heart Rate 1 : 77 bpm Height: 5'4" SpO2: 99% Temperature: 37.2 (C) / 98.9 (F) Weight: 136 lbs 06/10/2018 Blood Pressure 1: 116/78 Code : 8480-6 BMI: 23.3 Code : 01137-6 Heart Rate 1 : 69 bpm Height: 5'4" SpO2: 99% Weight: 136 lbs 12/08/2017 Blood Pressure 1: 130/86 Code : 8480-6 BMI: 29.7 Code : 48977-9 Heart Rate 1 : 67 bpm Height: 5'4" SpO2: 99% Weight: 173 lbs 10/13/2016 Blood Pressure 1: 128/92 Code : 8480-6 BMI: 32.1 Code : 31415-8 Heart Rate 1 : 87 bpm Height: 5'4" SpO2: 98% Weight: 187 lbs 10/03/2014 Blood Pressure 1: 110/76 Code : 8480-6 Heart Rate 1: 82 bpm 08/31/2014 Blood Pressure 1: 118/74 Code : 8480-6 BMI: 35.2 Code : 74633-2 Heart Rate 1 : 76 bpm Height: 5'4" Temperature: 36.4 (C) / 97.5 (F) Weight: 205 lbs 02/21/2014 Blood Pressure 1: 132/78 Code : 8480-6 Heart Rate 1: 80 bpm SpO2: 98% 02/14/2014 Blood Pressure 1: 120/70 Code : 8480-6 Heart Rate 1: 72 bpm Height: Weight: 01/17/2014 Blood Pressure 1: 116/90 Code : 8480-6 BMI: 35.0 Code : 02148-2 Height: 5'4" Weight: 204 lbs 11/14/2013 Blood Pressure 1: 112/76 Code : 8480-6 BMI: 35.7 Code : 58956-8 Heart Rate 1 : 80 bpm Height: [...] data Encounters Encounter Performer Location Codes Date ([id number]) 44436 EST. PATIENT, LEVEL III Diagnosis: Right upper quadrant pain[ICD10: R10.11] Diagnosis: Urinary tract infection, site not specified[ICD10: N39.0] Krystal Cabral MD , [facility] CPT-4: 98883 07/19/2018 ([id number]) PREV VISIT EST AGE 18-39 Diagnosis: Encounter for general adult medical examination without abnormal findings[ICD10: Z00.00] Krystal Cabral MD, [facility] CPT-4: 31550 06/10/2018 74830 EST. PATIENT, LEVEL III Diagnosis: Pain in right knee[ICD10: M25.561] Krystal Cabral MD, [facility] CPT-4: 32138 12/08/2017 ([id number]) PREV VISIT EST AGE 18-39 Diagnosis: Encounter for general adult medical examination without abnormal findings[ICD10: Z00.00] Diagnosis: Essential (primary) hypertension[ICD10: I10] Diagnosis: Impaired fasting glucose[ICD10: R73.01] Diagnosis: Personal history of gestational diabetes[ICD10: Z86.32] Krystal Cabral MD, [facility] CPT-4: 00519 10/13/2016 ([id number]) 04066 EST. PATIENT, LEVEL II Diagnosis: Rash[ICD9: 782.1] Leonor Cabral MD, [facility] CPT-4: 72080 10/03/2014 ([id number]) 66262 EST. PATIENT, LEVEL III Diagnosis: COUGH[ICD9: 786.2] Diagnosis: FEVER NOS[ICD9: 780.60] Diagnosis: Influenza[ICD9: 487.1] Krystal Cabral MD, [facility] CPT-4: 13746 08/31/2014 ([id number]) Miscellaneous no charge Diagnosis: BENIGN ADDISON SKIN TRUNK[ICD9: 216.5] Krystal Cabral MD, [facility] CPT-4: 66228 02/21/2014 ([id number]) 17234 EST. PATIENT, LEVEL III Diagnosis: ESSENTIAL HYPERTENSION[SNOMED: 14182819] Krystal Cabral MD, [facility] CPT-4: 39665 01/17/2014 Office outpatient new 30 minutes Diagnosis: ESSENTIAL HYPERTENSION[SNOMED: 38844517] Diagnosis: Mole of skin[ICD9: 216.9] [facility] CPT-4: 63110 11/14/2013 Plan of Care Planned Activity Notes [...] evaluation. Patient verbalized understanding of plan. 07/19/2018 Patient Education: Patient Medication Summary Completed [...] renal functioning. 06/10/2018 Appointment: Krystal Rosales WPtel: [phone] [phone] [place] (15 min) Moderate 06/10/2018 Patient Education: Patient Medication Summary Completed 06/10/2018 Visit Plan: Right knee pain-recommend rest, ice and anti inflammatories as directed-call if symptoms do not resolve and we will order imaging studies. 12/08/2017 Appointment: Krystal Rosales WPtel: [phone] [phone] [place] (30 min) Complex 12/08/2017 Patient Education: Patient Medication Summary Completed 12/08/2017 [facility]ment: [facility] [phone] [facility] [place] Complex 09/29/2017 Visit Plan: [...] Hgb A1C 10/13/2016 Appointment: Krystal Rosales WPtel: [phone] [phone] [place] (15 min) Moderate 10/13/2016 Patient Education: Patient Medication Summary Completed 10/13/2016 Patient Education: Obesity Completed 10/13/2016 Patient Education: Hypertension Completed 10/13/2016 Visit Plan: Rash - RX for ketoconazole given to patient to fill and use on chest wall call if not improving, will need to reschedule the removal of the mole. 10/03/2014 Appointment: Leonor Cabral WPtel: [address] [place], [place] [phone] Surgical Procedure 10/03/2014 Patient Education: Patient Medication [...] FLU Pending 08/31/2014 Appointment: Leonor Cabral WPtel: [address] [place], [place] [phone] Follow up 07/11/2014 Visit Plan: Suture removal-sites clear 02/21/2014 Appointment: Leonor Cabral WPtel: [address] [place], [place] [phone] suture removal 02/21/2014 Patient Education: Patient Medication Summary Completed 02/21/2014 Visit Plan: Wound Instructions - Pt was instructed to keep the wound clean, wash with antibacterial soap, use triple antibiotic ointment, call if redness, pustular drainage, or any other acute concerns. 02/14/2014 Appointment: Leonor Cabral WPtel: [address] [place], [place] [phone] Surgical Procedure 02/14/2014 Patient Education: Patient Medication Summary Completed 02/14/2014 Visit Plan: Hypertension - well controlled - continue with current medications, continue with no added salt diet. Pt has been encouraged to exercise daily. The pt has been advised to call the office if there are any acute concerns about change in blood pressure readings at home. 01/17/2014 Appointment: [facility] [phone] [phone] Follow up 01/17/2014 Patient Education: Patient Medication [...] blood pressure readings at home. Moles-monitor for [id number]-oz-tchncvcq in 3 months and plan for removal if changing. 11/14/2013 App[facility]ment: [facility] [phone] [phone] New Patient 11/14/2013 Patient Education: Patient Medication [...] blood pressure readings at home. Moles-monitor for qopgqht-gw-wukprihq in 3 months and plan for removal [...]
--- OUTSIDE RECORDS SUMMARY | 2018-11-16 08:53 | XMS REPORT | CCD ---
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 Role Phone Leonor Cabral PP Unavailable CCM Unavailable Summary Purpose Interface Exchange Insurance Providers Payer name Policy type / Coverage type Covered libertarian ID Effective Begin Date Effective End Date [facility] [id number] 2016 Unknown Family history Mother Diagnosis Age [...] Unknown House 11/14/[address]: 242016381 Never smoker 11/14/[address]: 765926961 Never drinks alcohol 11/14/2013 Allergies, Adverse Reactions, [...] Instructions Voltaren 1 % topical gel RxNorm: 050462 4 Gram(s) TOP QID 12/0812/17/2017 Inactive metoprolol succinate ER 25 mg tablet,extended release 24 hr RxNorm: 514576 Tablet (s) 1/2 TABLET(S) PO DAILY 12/08/2017 Inactive metoprolol succinate ER 25 mg tablet,extended release 24 hr RxNorm: 210795 Tablet (s) 1 TABLET(S) PO DAILY 10/13/20162017 Inactive Tamiflu 75 mg capsule RxNorm: 303487 1 Capsule(s) PO BID 201409/04/2014 Inactive [SAVINGS FOR UNINSURED PATIENTS -- BIN:[id number], PCN: [id number], Group: [id number], ID # [id number], Process claim through [employer], for questions: . THIS IS NOT INSURANCE.] metoprolol succinate ER 25 mg tablet,extended release 24 hr RxNorm: 788960 1 TABLET(S) PO DAILY 03/24/2014 09/19/2014 Inactive metoprolol succinate ER 25 mg tablet,extended release 24 hr RxNorm: 618283 1 Tablet(s) PO daily 11/14/2013 03/13/2014 Inactive Fish Oil oral RxNorm: 4756028 oral No Start Date Active Probiotic oral [...] 10/12/2016 Inactive labetalol 200 mg tablet RxNorm: 222314 1 Tablet(s) PO BID No Start Date [...] lesion ICD-9: 709.9 2013 ESSENTIAL HYPERTENSION SNOMED: 33429284 ICD-9: 401.9 01/17/2014 Mole of skin ICD-9: [...] Item Item Code Result Date Comp Metabolic Rrr314 NA 139 mEq/L 06/10/2018 Comp Metabolic Fha873 K 4.2 mEq/L 06/10/2018 Comp Metabolic Yed225 CL 105 mEq/L 06/10/2018 Comp Metabolic Jpw726 CO2 27.0 mEq/L 06/10/2018 Comp Metabolic Ynt041 ANION GAP 11 06/10/2018 Comp Metabolic Lnh573 GLUCOSE 85 mg/dL 06/10/2018 Comp Metabolic Fvp188 Creat 0.7 mg/dL 06/10/2018 Comp Metabolic Jxy950 eGFR 105 ml/min/1.73m2 06/10/2018 Comp Metabolic Cdg557 BUN 22 mg/dL 06/10/2018 Comp Metabolic Urk290 B/C Ratio 31.9 Ratio 06/10/2018 Comp Metabolic Jat502 CALCIUM 9.1 mg/dL 06/10/2018 Comp Metabolic Nst686 ALK PHOS 39 U/L 06/10/2018 Comp Metabolic Gpi101 AST(SGOT) 14 U/L 06/10/2018 Comp Metabolic Chy394 ALT(SGPT) 15 U/L 06/10/2018 Comp Metabolic Kqv999 BILI T 0.6 mg/dL 06/10/2018 Comp Metabolic Elx540 ALBUMIN 4.3 g/dL 06/10/2018 Comp Metabolic Qcy993 TPRO 6.2 g/dL 06/10/2018 Comp Metabolic Gcu951 GLOB 1.9 g/dL 06/10/2018 Comp Metabolic Vjw882 A/G Ratio 2.2 Ratio 06/10/2018 Comp Metabolic Mzu779 Osmo 280 mOsmo 06/10/2018 Cbc With Differential [...] 30.9 pg 06/10/2018 Cbc With Differential Ord2 [place]% 6.1 % 06/10/2018 Cbc With Differential Ord2 [...] 2.01 K/ul 06/10/2018 Cbc With Differential Ord2 [place] ABS# 0.2 K/ul 06/10/2018 Cbc With Differential [...] 28.8 pg 10/15/2016 Cbc With Differential Ord2 [place]% 7.1 % 10/15/2016 Cbc With Differential Ord2 [...] 2.06 K/ul 10/15/2016 Cbc With Differential Ord2 [place] ABS# 0.3 K/ul 10/15/2016 Cbc With Differential Ord2 Eos ABS# 0.1 K/ul 10/15/2016 Cbc With Differential Ord2 Baso ABS# 0.0 K/ul 10/15/2016 Comp Metabolic Rkb912 NA 139 mEq/L 10/15/2016 Comp Metabolic Zzn329 K 4.2 mEq/L 10/15/2016 Comp Metabolic Uyr572 CL 106 mEq/L 10/15/2016 Comp Metabolic Fqn172 CO2 26.0 mEq/L 10/15/2016 Comp Metabolic Liv790 ANION GAP 11 10/15/2016 Comp Metabolic Ibo802 GLUCOSE 82 mg/dL 10/15/2016 Comp Metabolic Vtl526 Creat 0.9 mg/dL 10/15/2016 Comp Metabolic Czk891 eGFR 79 ml/min/1.73m2 10/15/2016 Comp Metabolic Fkx313 BUN 16 mg/dL 10/15/2016 Comp Metabolic Zhp733 B/C Ratio 18.0 Ratio 10/15/2016 Comp Metabolic Wlv475 CALCIUM 9.1 mg/dL 10/15/2016 Comp Metabolic Kke869 ALK PHOS 59 U/L 10/15/2016 Comp Metabolic Eby658 AST(SGOT) 18 U/L 10/15/2016 Comp Metabolic Kyg263 ALT(SGPT) 22 U/L 10/15/2016 Comp Metabolic Yfg847 BILI T 0.4 mg/dL 10/15/2016 Comp Metabolic Uun146 ALBUMIN 4.0 g/dL 10/15/2016 Comp Metabolic Wyb261 TPRO 6.3 g/dL 10/15/2016 Comp Metabolic Eyu330 GLOB 2.3 g/dL 10/15/2016 Comp Metabolic Nez040 A/G Ratio 1.8 Ratio 10/15/2016 Comp Metabolic Iaq740 Osmo 278 mOsmo 10/15/2016 %Hba1C Oiy124 % HbA1c 34839-2 5.4 % 10/15/2016 %Hba1C Idk022 Gluc Ave 108 mg/dL 10/15/2016 Tsh Ord6 [...] Codes Date BIOPSY SKIN LESION CPT -4: 14366 02/14/2014 BIOPSY SKIN ADD-ON CPT -4: 50441 02/14/2014 Vital Signs Date Vital 07/19/2018 Blood Pressure 1: 120/80 Code : 8480-6 BMI: 23.3 Code : 32350-2 Heart Rate 1 : 77 bpm Height: 5'4" SpO2: 99% Temperature: 37.2 (C) / 98.9 (F) Weight: 136 lbs 06/10/2018 Blood Pressure 1: 116/78 Code : 8480-6 BMI: 23.3 Code : 60198-5 Heart Rate 1 : 69 bpm Height: 5'4" SpO2: 99% Weight: 136 lbs 12/08/2017 Blood Pressure 1: 130/86 Code : 8480-6 BMI: 29.7 Code : 33117-5 Heart Rate 1 : 67 bpm Height: 5'4" SpO2: 99% Weight: 173 lbs 10/13/2016 Blood Pressure 1: 128/92 Code : 8480-6 BMI: 32.1 Code : 97605-6 Heart Rate 1 : 87 bpm Height: 5'4" SpO2: 98% Weight: 187 lbs 10/03/2014 Blood Pressure 1: 110/76 Code : 8480-6 Heart Rate 1: 82 bpm 08/31/2014 Blood Pressure 1: 118/74 Code : 8480-6 BMI: 35.2 Code : 92974-2 Heart Rate 1 : 76 bpm Height: 5'4" Temperature: 36.4 (C) / 97.5 (F) Weight: 205 lbs 02/21/2014 Blood Pressure 1: 132/78 Code : 8480-6 Heart Rate 1: 80 bpm SpO2: 98% 02/14/2014 Blood Pressure 1: 120/70 Code : 8480-6 Heart Rate 1: 72 bpm Height: Weight: 01/17/2014 Blood Pressure 1: 116/90 Code : 8480-6 BMI: 35.0 Code : 49047-9 Height: 5'4" Weight: 204 lbs 11/14/2013 Blood Pressure 1: 112/76 Code : 8480-6 BMI: 35.7 Code : 36348-0 Heart Rate 1 : 80 bpm Height: [...] data Encounters Encounter Performer Location Codes Date ([id number]) 51828 EST. PATIENT, LEVEL III Diagnosis: Right upper quadrant pain[ICD10: R10.11] Diagnosis: Urinary tract infection, site not specified[ICD10: N39.0] Krystal Cabral MD , [facility] CPT-4: 26485 07/19/2018 ([id number]) PREV VISIT EST AGE 18-39 Diagnosis: Encounter for general adult medical examination without abnormal findings[ICD10: Z00.00] Krystal Cabral MD, [facility] CPT-4: 27978 06/10/2018 [id number] EST. PATIENT, LEVEL III Diagnosis: Pain in right knee[ICD10: M25.561] Krystal Cabral MD, [facility] CPT-4: 56714 12/08/2017 ([id number]) PREV VISIT EST AGE 18-39 Diagnosis: Encounter for general adult medical examination without abnormal findings[ICD10: Z00.00] Diagnosis: Essential (primary) hypertension[ICD10: I10] Diagnosis: Impaired fasting glucose[ICD10: R73.01] Diagnosis: Personal history of gestational diabetes[ICD10: Z86.32] Krystal Cabral MD, [facility] CPT-4: 60773 10/13/2016 ([id number]) 23999 EST. PATIENT, LEVEL II Diagnosis: Rash[ICD9: 782.1] Leonor Cabral MD, [facility] CPT-4: 59415 10/03/2014 ([id number]) 69085 EST. PATIENT, LEVEL III Diagnosis: COUGH[ICD9: 786.2] Diagnosis: FEVER NOS[ICD9: 780.60] Diagnosis: Influenza[ICD9: 487.1] Krystal Cabral MD, [facility] CPT-4: 18645 08/31/2014 ([id number]) Miscellaneous no charge Diagnosis: BENIGN ADDISON SKIN TRUNK[ICD9: 216.5] Krystal Cabral MD, [facility] CPT-4: 89321 02/21/2014 ([id number]) 21866 EST. PATIENT, LEVEL III Diagnosis: ESSENTIAL HYPERTENSION[SNOMED: 95698641] Krystal Cabral MD, [facility] CPT-4: 05314 01/17/2014 Office outpatient new 30 minutes Diagnosis: ESSENTIAL HYPERTENSION[SNOMED: 27511275] Diagnosis: Mole of skin[ICD9: 216.9] [facility] CPT-4: 46137 11/14/2013 Plan of Care Planned Activity Notes [...] functioning. 06/10/2018 Appointment: Krystal Rosales WPtel: [phone] [phone] [place] (15 min) Moderate 06/10/2018 Patient Education: Patient Medication Summary Completed 06/10/2018 Visit Plan: Right knee pain-recommend rest, ice and anti inflammatories as directed-call if symptoms do not resolve and we will order imaging studies. 12/08/2017 Appointment: Krystal Rosales WPtel: [phone] [phone] [place] (30 min) Complex 12/08/2017 Patient Education: Patient Medication Summary Completed 12/08/2017 Appointment: Bibiana [facility] [phone] [facility] [place] ([place] Complex 09/29/2017 Visit Plan: [...] Hgb A1C 10/13/2016 Appointment: Krystal Rosales WPtel: [phone] [phone] [place] (15 min) Moderate 10/13/2016 Patient Education: Patient Medication Summary Completed 10/13/2016 Patient Education: Obesity Completed 10/13/2016 Patient Education: Hypertension Completed 10/13/2016 Visit Plan: Rash - RX for ketoconazole given to patient to fill and use on chest wall call if not improving, will need to reschedule the removal of the mole. 10/03/2014 Appointment: Leonor Cabral WPtel: [address] [place], [place] [phone] Surgical Procedure 10/03/2014 Patient Education: Patient Medication [...] FLU Pending 08/31/2014 Appointment: Leonor Cabral WPtel: [address] [place], [place] [phone] Follow up 07/11/2014 Visit Plan: Suture removal-sites clear 02/21/2014 Appointment: Leonor Cabral WPtel: [address] [place], [place] [phone] suture removal 02/21/2014 Patient Education: Patient Medication Summary Completed 02/21/2014 Visit Plan: Wound Instructions - Pt was instructed to keep the wound clean, wash with antibacterial soap, use triple antibiotic ointment, call if redness, pustular drainage, or any other acute concerns. 02/14/2014 Appointment: Leonor Cabral WPtel: [address] [place], [place] [phone] Surgical Procedure 02/14/2014 Patient Education: Patient Medication Summary Completed 02/14/2014 Visit Plan: Hypertension - well controlled - continue with current medications, continue with no added salt diet. Pt has been encouraged to exercise daily. The pt has been advised to call the office if there are any acute concerns about change in blood pressure readings at home. 01/17/2014 Appointment: Krystal Rosales [facility] [phone] [facility] [phone] Follow up 01/17/2014 Patient Education: Patient Medication [...] blood pressure readings at home. Moles-monitor for hjeazer-yw-prpywrie in 3 months and plan for removal if changing. 11/14/2013 Appointment: BobbyKrystal [facility]Ptel[facility] [phone] [phone] New Patient 11/14/2013 Patient Education: Patient Medication [...] blood pressure readings at home. Moles-monitor for rfrhkuv-nx-rfxzagap in 3 months and plan for removal [...]
--- OUTSIDE RECORDS SUMMARY | 2018-11-16 08:54 | XMS REPORT | CCD ---
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 Role Phone Leonor Cabral PP Unavailable CCM Unavailable Summary Purpose Interface Exchange Insurance Providers Payer name Policy type / Coverage type Covered green party ID Effective Begin Date Effective End Date [facility] [id number] 2016 Unknown Family history Mother Diagnosis Age [...] Unknown House 11/14/[address]: 818106133 Never smoker 11/14/[address]: 380058124 Never drinks alcohol 11/14/2013 Allergies, Adverse Reactions, Alerts Substance Reaction Codes Entered Date Inactivated Date Status clindamycin HCl hives RxNorm: 2582 11/14/2013 No Inactive Date Active PENICILLINS rash Unknown 11/14/2013 No Inactive Date Active Past Medical History Illness Codes Condition Status Onset Date Resolved Date Encounter for general adult medical examination without [...] Problems Condition Codes Effective Dates Condition Status Encounter for general adult medical examination without [...] Instructions Voltaren 1 % topical gel RxNorm: 022421 4 Gram(s) TOP QID 12/0812/17/2017 Inactive metoprolol succinate ER 25 mg tablet,extended release 24 hr RxNorm: 175396 Tablet (s) 1/2 TABLET(S) PO DAILY 12/08/2017 Inactive metoprolol succinate ER 25 mg tablet,extended release 24 hr RxNorm: 029333 Tablet (s) 1 TABLET(S) PO DAILY 10/13/20162017 Inactive Tamiflu 75 mg capsule RxNorm: 898495 1 Capsule(s) PO BID 201409/04/2014 Inactive [SAVINGS FOR UNINSURED PATIENTS -- BIN:[id number], PCN: [id number], Group: [id number], ID # [id number], Process claim through [employer], for questions: . THIS IS NOT INSURANCE.] metoprolol succinate ER 25 mg tablet,extended release 24 hr RxNorm: 898318 1 TABLET(S) PO DAILY 03/24/2014 09/19/2014 Inactive metoprolol succinate ER 25 mg tablet,extended release 24 hr RxNorm: 597648 1 Tablet(s) PO daily 11/14/2013 03/13/2014 Inactive Fish Oil oral RxNorm: 6822656 oral No Start Date Active Probiotic oral [...] 10/12/2016 Inactive labetalol 200 mg tablet RxNorm: 689890 1 Tablet(s) PO BID No Start Date 11/13/2013 Inactive Medication Administered No Medication Administered data Immunizations Vaccine Codes Date Status Influenza CVX: 141 05/04/2018 completed Influenza CVX: 141 05/02/2017 completed Diphtheria, Tetanus, Pertussis CVX: 20 completed Influenza CVX: 141 10/25/2015 completed PPD Unknown 02/21/2014 completed Assessments Condition Codes Effective Dates Encounter for general adult medical examination without [...] lesion ICD-9: 709.9 2013 ESSENTIAL HYPERTENSION SNOMED: 62102477 ICD-9: 401.9 01/17/2014 Mole of skin ICD-9: 216.9 11/14/2013 Reason For Visit Reason For Visit Effective Dates Notes well woman exam (18-39 years) 06/10/2018 knee pain 12/08/2017 well woman exam (18-39 years) 10/13/2016 office procedure 10/03/2014 Here to have a mole removed under breast cough 08/31/2014 wound follow up 02/21/2014 removal of alonzo skin lesion 02/14/2014 headache 01/17/2014 blood pressure followup 11/14/2013 Results Observation Observation Code Item Item Code Result Date Comp Metabolic Zpt552 NA 139 mEq/L 06/10/2018 Comp Metabolic Bzs908 K 4.2 mEq/L 06/10/2018 Comp Metabolic Apj227 CL 105 mEq/L 06/10/2018 Comp Metabolic Urq946 CO2 27.0 mEq/L 06/10/2018 Comp Metabolic Sok869 ANION GAP 11 06/10/2018 Comp Metabolic Sxe041 GLUCOSE 85 mg/dL 06/10/2018 Comp Metabolic Qrx791 Creat 0.7 mg/dL 06/10/2018 Comp Metabolic Umk842 eGFR 105 ml/min/1.73m2 06/10/2018 Comp Metabolic Flk209 BUN 22 mg/dL 06/10/2018 Comp Metabolic Qie190 B/C Ratio 31.9 Ratio 06/10/2018 Comp Metabolic Pxj651 CALCIUM 9.1 mg/dL 06/10/2018 Comp Metabolic Iwe251 ALK PHOS 39 U/L 06/10/2018 Comp Metabolic Xci385 AST(SGOT) 14 U/L 06/10/2018 Comp Metabolic Mia892 ALT(SGPT) 15 U/L 06/10/2018 Comp Metabolic Kvc038 BILI T 0.6 mg/dL 06/10/2018 Comp Metabolic Muh741 ALBUMIN 4.3 g/dL 06/10/2018 Comp Metabolic Ngn590 TPRO 6.2 g/dL 06/10/2018 Comp Metabolic Zpu635 GLOB 1.9 g/dL 06/10/2018 Comp Metabolic Dmf104 A/G Ratio 2.2 Ratio 06/10/2018 Comp Metabolic Hey257 Osmo 280 mOsmo 06/10/2018 Cbc With Differential Ord2 WBC 3.79 K/ul 06/10/2018 Cbc With Differential Ord2 RBC 4.57 M/ul 06/10/2018 Cbc With Differential Ord2 HGB 14.1 g/dl 06/10/2018 Cbc With Differential Ord2 Neut% 39.0 % 06/10/2018 Cbc With Differential Ord2 HCT 40.1 % 06/10/2018 Cbc With Differential Ord2 MCV 87.7 fl 06/10/2018 Cbc With Differential Ord2 Lymph% 53.0 % 06/10/2018 Cbc With Differential Ord2 MCH 30.9 pg 06/10/2018 Cbc With Differential Ord2 Kendall% 6.1 % 06/10/2018 Cbc With Differential Ord2 [...] 2.01 K/ul 06/10/2018 Cbc With Differential Ord2 Kendall ABS# 0.2 K/ul 06/10/2018 Cbc With Differential [...] 28.8 pg 10/15/2016 Cbc With Differential Ord2 Kendall% 7.1 % 10/15/2016 Cbc With Differential Ord2 Eos% 1.9 % 10/15/2016 Cbc With Differential Ord2 MCHC 33.7 pg 10/15/2016 Cbc With Differential Ord2 PLT 266 K/ul 10/15/2016 Cbc With Differential Ord2 Baso% 0.2 % 10/15/2016 Cbc With Differential Ord2 Neut ABS# 2.32 K/ul 10/15/2016 Cbc With Differential Ord2 RDW 14.0 % 10/15/2016 Cbc With Differential Ord2 Lymph ABS# 2.06 K/ul 10/15/2016 Cbc With Differential Ord2 Kendall ABS# 0.3 K/ul 10/15/2016 Cbc With Differential Ord2 Eos ABS# 0.1 K/ul 10/15/2016 Cbc With Differential Ord2 Baso ABS# 0.0 K/ul 10/15/2016 Comp Metabolic Nxf227 NA 139 mEq/L 10/15/2016 Comp Metabolic Rvm694 K 4.2 mEq/L 10/15/2016 Comp Metabolic Pif299 CL 106 mEq/L 10/15/2016 Comp Metabolic Uvi659 CO2 26.0 mEq/L 10/15/2016 Comp Metabolic Daf873 ANION GAP 11 10/15/2016 Comp Metabolic Cve074 GLUCOSE 82 mg/dL 10/15/2016 Comp Metabolic Ydr825 Creat 0.9 mg/dL 10/15/2016 Comp Metabolic Hvy371 eGFR 79 ml/min/1.73m2 10/15/2016 Comp Metabolic Kel353 BUN 16 mg/dL 10/15/2016 Comp Metabolic Rcy080 B/C Ratio 18.0 Ratio 10/15/2016 Comp Metabolic Diq646 CALCIUM 9.1 mg/dL 10/15/2016 Comp Metabolic Eqk702 ALK PHOS 59 U/L 10/15/2016 Comp Metabolic Wch141 AST(SGOT) 18 U/L 10/15/2016 Comp Metabolic Zvw851 ALT(SGPT) 22 U/L 10/15/2016 Comp Metabolic Rjo359 BILI T 0.4 mg/dL 10/15/2016 Comp Metabolic Pec433 ALBUMIN 4.0 g/dL 10/15/2016 Comp Metabolic Wan869 TPRO 6.3 g/dL 10/15/2016 Comp Metabolic Cpe661 GLOB 2.3 g/dL 10/15/2016 Comp Metabolic Uqm408 A/G Ratio 1.8 Ratio 10/15/2016 Comp Metabolic Vgm358 Osmo 278 mOsmo 10/15/2016 %Hba1C Scu692 % HbA1c 11771-6 5.4 % 10/15/2016 %Hba1C Fsi331 Gluc Ave 108 mg/dL 10/15/2016 Tsh Ord6 hTSH II 1.45 uIU/mL 10/15/2016 Lipid Ord30 CHOL 206 mg/dL 10/15/2016 Lipid Ord30 HDL 51.0 mg/dl 10/15/2016 Lipid Ord30 TRIG 43 mg/dL 10/15/2016 Lipid Ord30 LDL 146 mg/dL 10/15/2016 Lipid Ord30 C/HDL 4.0 Ratio 10/15/2016 Review of Systems System Result Effective Dates Constitutional No recent illness 2017 Constitutional No [...] Codes Date BIOPSY SKIN LESION CPT -4: 29400 02/14/2014 BIOPSY SKIN ADD-ON CPT -4: 66810 02/14/2014 Vital Signs Date Vital 06/10/2018 Blood Pressure 1: 116/78 Code : 8480-6 BMI: 23.3 Code : 94113-6 Heart Rate 1 : 69 bpm Height: 5'4" SpO2: 99% Weight: 136 lbs 12/08/2017 Blood Pressure 1: 130/86 Code : 8480-6 BMI: 29.7 Code : 24397-2 Heart Rate 1 : 67 bpm Height: 5'4" SpO2: 99% Weight: 173 lbs 10/13/2016 Blood Pressure 1: 128/92 Code : 8480-6 BMI: 32.1 Code : 76641-9 Heart Rate 1 : 87 bpm Height: 5'4" SpO2: 98% Weight: 187 lbs 10/03/2014 Blood Pressure 1: 110/76 Code : 8480-6 Heart Rate 1: 82 bpm 08/31/2014 Blood Pressure 1: 118/74 Code : 8480-6 BMI: 35.2 Code : 72768-2 Heart Rate 1 : 76 bpm Height: 5'4" Temperature: 36.4 (C) / 97.5 (F) Weight: 205 lbs 02/21/2014 Blood Pressure 1: 132/78 Code : 8480-6 Heart Rate 1: 80 bpm SpO2: 98% 02/14/2014 Blood Pressure 1: 120/70 Code : 8480-6 Heart Rate 1: 72 bpm Height: Weight: 01/17/2014 Blood Pressure 1: 116/90 Code : 8480-6 BMI: 35.0 Code : 55015-1 Height: 5'4" Weight: 204 lbs 11/14/2013 Blood Pressure 1: 112/76 Code : 8480-6 BMI: 35.7 Code : 73204-8 Heart Rate 1 : 80 bpm Height: 5'4" Weight: 208 lbs Functional Status No Functional Status data History of Present Illness Symptom Name Status Result Effective Date Notes well woman exam (18-39 years) Obstetrical History [...] data Encounters Encounter Performer Location Codes Date ([id number]) PREV VISIT EST AGE 18-39 Diagnosis: Encounter for general adult medical examination without abnormal findings[ICD10: Z00.00] Krystal Cabral MD, [facility] CPT-4: 72548 06/10/2018 57701 EST. PATIENT, LEVEL III Diagnosis: Pain in right knee[ICD10: M25.561] Krystal Cabral MD, [facility] CPT-4: 93330 12/08/2017 ([id number]) PREV VISIT EST AGE 18-39 Diagnosis: Encounter for general adult medical examination without abnormal findings[ICD10: Z00.00] Diagnosis: Essential (primary) hypertension[ICD10: I10] Diagnosis: Impaired fasting glucose[ICD10: R73.01] Diagnosis: Personal history of gestational diabetes[ICD10: Z86.32] Krystal Cabral MD, [facility] CPT-4: 94247 10/13/2016 ([id number]) 41640 EST. PATIENT, LEVEL II Diagnosis: Rash[ICD9: 782.1] [facility] CPT-4: 51115 10/03/2014 ([id number]) 31552 EST. PATIENT, LEVEL III Diagnosis: COUGH[ICD9: 786.2] Diagnosis: FEVER NOS[ICD9: 780.60] Diagnosis: Influenza[ICD9: 487.1] Krystal Cabral MD, [facility] CPT-4: 46408 08/31/2014 ([id number]) Miscellaneous no charge Diagnosis: BENIGN ADDISON SKIN TRUNK[ICD9: 216.5] [facility] CPT-4: 58918 02/21/2014 ([id number]) 59092 EST. PATIENT, LEVEL III Diagnosis: ESSENTIAL HYPERTENSION[SNOMED: 49548867] [facility] CPT-4: 72792 01/17/2014 Office outpatient new 30 minutes Diagnosis: ESSENTIAL HYPERTENSION[SNOMED: 46809695] Diagnosis: Mole of skin[ICD9: 216.9] [facility] CPT-4: 13857 11/14/2013 Plan of Care Planned Activity Notes Codes Status Date Visit Plan: Well Adult - pt was counseled about diet, exercise, and encouraged to follow a heart healthy diet and increase activity level. The patient was instructed to RTC yearly for well adult exams and PRN for acute illnesses. The pt was also instructed to have yearly labs for check of cholesterol, thyroid, chem panel, CBC, and renal functioning. 06/10/2018 Patient Education: Patient Medication Summary Completed 06/10/2018 Visit Plan: Right knee pain-recommend rest, ice and anti inflammatories as directed-call if symptoms do not resolve and we will order imaging studies. 12/08/2017 Appointment: Krystal Rosales WPtel: [phone] (30 min) Complex 12/08/2017 Patient Education: Patient Medication Summary Completed 12/08/2017 Appointment: Bibiana Thomas WPtel: [facility] (30 min) Complex 09/29/2017 Visit Plan: Well [...] Rosales WPtel: [phone] (15 min) Moderate 10/13/2016 Patient Education: Patient Medication Summary Completed 10/13/2016 Patient Education: Obesity Completed 10/13/2016 Patient Education: Hypertension Completed 10/13/2016 Visit Plan: Rash - RX for ketoconazole given to patient to fill and use on chest wall call if not improving, will need to reschedule the removal of the mole. 10/03/2014 Appointment: Leonor Cabral WPtel: [address] [place], [place] [address] Surgical Procedure 10/03/2014 Patient Education: Patient Medication [...] FLU Pending 08/31/2014 Appointment: Leonor Cabral WPtel: [address] [place], [place] [phone] Follow up 07/11/2014 Visit Plan: Suture removal-sites clear 02/21/2014 Appointment: Leonor Cabral WPtel: [address] [place], [place] [phone] suture removal 02/21/2014 Patient Education: Patient Medication Summary Completed 02/21/2014 Visit Plan: Wound Instructions - Pt was instructed to keep the wound clean, wash with antibacterial soap, use triple antibiotic ointment, call if redness, pustular drainage, or any other acute concerns. 02/14/2014 Appointment: Leonor Cabral WPtel: [address] [place], [place] [phone] Surgical Procedure 02/14/2014 Patient Education: Patient Medication Summary Completed 02/14/2014 Visit Plan: Hypertension - well controlled - continue with current medications, continue with no added salt diet. Pt has been encouraged to exercise daily. The pt has been advised to call the office if there are any acute concerns about change in blood pressure readings at home. 01/17/2014 [facility]ment: [facility] [phone] [phone] Follow up 01/17/2014 Patient Education: Patient Medication [...] blood pressure readings at home. Moles-monitor for rsezmwa-bw-hcltfiyx in 3 months and plan for removal if changing. 11/14/2013 Appointment: [facility] [phone] [phone] New Patient 11/14/2013 Patient Education: Patient Medication [...] blood pressure readings at home. Moles-monitor for vhqqzvt-uy-kggehdyg in 3 months and plan for removal [...]
--- OUTSIDE RECORDS SUMMARY | 2018-11-16 08:55 | XMS REPORT | CCD ---
Author Author Krystal Rosales MD, [facility] Address [address] [place] [address] Phone Care Team Providers Care Ppap Coordinator Name Role Phone Leonor Cabral PP Unavailable CCM Unavailable Summary Purpose Interface Exchange Insurance Providers Payer name Policy type / Coverage type Covered green party ID Effective Begin Date Effective End Date [facility] [id number] 2016 Unknown Family history Mother Diagnosis Age [...] Unknown House 11/14/[address]: 183805663 Never smoker 11/14/[address]: 938524038 Never drinks alcohol 11/14/2013 Allergies, Adverse Reactions, [...] Instructions Voltaren 1 % topical gel RxNorm: 346587 4 Gram(s) TOP QID 12/0812/17/2017 Inactive metoprolol succinate ER 25 mg tablet,extended release 24 hr RxNorm: 769364 Tablet (s) 1/2 TABLET(S) PO DAILY 12/08/2017 Inactive metoprolol succinate ER 25 mg tablet,extended release 24 hr RxNorm: 818464 Tablet (s) 1 TABLET(S) PO DAILY 10/13/20162017 Inactive Tamiflu 75 mg capsule RxNorm: 339553 1 Capsule(s) PO BID 201409/04/2014 Inactive [SAVINGS FOR UNINSURED PATIENTS -- BIN:[id number], PCN: [id number], Group: [id number], ID # [id number], Process claim through [employer], for questions: . THIS IS NOT INSURANCE.] metoprolol succinate ER 25 mg tablet,extended release 24 hr RxNorm: 455488 1 TABLET(S) PO DAILY 03/24/2014 09/19/2014 Inactive metoprolol succinate ER 25 mg tablet,extended release 24 hr RxNorm: 640701 1 Tablet(s) PO daily 11/14/2013 03/13/2014 Inactive Fish Oil oral RxNorm: 7704232 oral No Start Date Active Probiotic oral [...] 10/12/2016 Inactive labetalol 200 mg tablet RxNorm: 063487 1 Tablet(s) PO BID No Start Date [...] lesion ICD-9: 709.9 2013 ESSENTIAL HYPERTENSION SNOMED: 36845441 ICD-9: 401.9 01/17/2014 Mole of skin ICD-9: [...] Observation Code Item Item Code Result Date Cbc With Differential Ord2 WBC 4.82 K/ul [...] 28.8 pg 10/15/2016 Cbc With Differential Ord2 [place]% 7.1 % 10/15/2016 Cbc With Differential Ord2 [...] 2.06 K/ul 10/15/2016 Cbc With Differential Ord2 [place] ABS# 0.3 K/ul 10/15/2016 Cbc With Differential Ord2 Eos ABS# 0.1 K/ul 10/15/2016 Cbc With Differential Ord2 Baso ABS# 0.0 K/ul 10/15/2016 Comp Metabolic Ucx873 NA 139 mEq/L 10/15/2016 Comp Metabolic Umh373 K 4.2 mEq/L 10/15/2016 Comp Metabolic Yyh552 CL 106 mEq/L 10/15/2016 Comp Metabolic Spv135 CO2 26.0 mEq/L 10/15/2016 Comp Metabolic Dzs765 ANION GAP 11 10/15/2016 Comp Metabolic Kwe115 GLUCOSE 82 mg/dL 10/15/2016 Comp Metabolic Jmz076 Creat 0.9 mg/dL 10/15/2016 Comp Metabolic Vdt250 eGFR 79 ml/min/1.73m2 10/15/2016 Comp Metabolic Iuh441 BUN 16 mg/dL 10/15/2016 Comp Metabolic Sas326 B/C Ratio 18.0 Ratio 10/15/2016 Comp Metabolic Fiw328 CALCIUM 9.1 mg/dL 10/15/2016 Comp Metabolic Knf399 ALK PHOS 59 U/L 10/15/2016 Comp Metabolic Zru547 AST(SGOT) 18 U/L 10/15/2016 Comp Metabolic Wiy904 ALT(SGPT) 22 U/L 10/15/2016 Comp Metabolic Gzc138 BILI T 0.4 mg/dL 10/15/2016 Comp Metabolic Uum392 ALBUMIN 4.0 g/dL 10/15/2016 Comp Metabolic Gtc672 TPRO 6.3 g/dL 10/15/2016 Comp Metabolic Vtp462 GLOB 2.3 g/dL 10/15/2016 Comp Metabolic Umk661 A/G Ratio 1.8 Ratio 10/15/2016 Comp Metabolic Vaj006 Osmo 278 mOsmo 10/15/2016 %Hba1C Utb749 % HbA1c 87890-4 5.4 % 10/15/2016 %Hba1C Kns058 Gluc Ave 108 mg/dL 10/15/2016 Tsh Ord6 [...] Codes Date BIOPSY SKIN LESION CPT -4: 38694 02/14/2014 BIOPSY SKIN ADD-ON CPT -4: 34833 02/14/2014 Vital Signs Date Vital 06/10/2018 Blood Pressure 1: 116/78 Code : 8480-6 BMI: 23.3 Code : 65998-8 Heart Rate 1 : 69 bpm Height: 5'4" SpO2: 99% Weight: 136 lbs 12/08/2017 Blood Pressure 1: 130/86 Code : 8480-6 BMI: 29.7 Code : 91000-0 Heart Rate 1 : 67 bpm Height: 5'4" SpO2: 99% Weight: 173 lbs 10/13/2016 Blood Pressure 1: 128/92 Code : 8480-6 BMI: 32.1 Code : 29222-0 Heart Rate 1 : 87 bpm Height: 5'4" SpO2: 98% Weight: 187 lbs 10/03/2014 Blood Pressure 1: 110/76 Code : 8480-6 Heart Rate 1: 82 bpm 08/31/2014 Blood Pressure 1: 118/74 Code : 8480-6 BMI: 35.2 Code : 14261-5 Heart Rate 1 : 76 bpm Height: 5'4" Temperature: 36.4 (C) / 97.5 (F) Weight: 205 lbs 02/21/2014 Blood Pressure 1: 132/78 Code : 8480-6 Heart Rate 1: 80 bpm SpO2: 98% 02/14/2014 Blood Pressure 1: 120/70 Code : 8480-6 Heart Rate 1: 72 bpm Height: Weight: 01/17/2014 Blood Pressure 1: 116/90 Code : 8480-6 BMI: 35.0 Code : 80889-0 Height: 5'4" Weight: 204 lbs 11/14/2013 Blood Pressure 1: 112/76 Code : 8480-6 BMI: 35.7 Code : 70055-1 Heart Rate 1 : 80 bpm Height: [...] data Encounters Encounter Performer Location Codes Date (66240) PREV VISIT EST AGE 18-39 Diagnosis: Encounter for general adult medical examination without abnormal findings[ICD10: Z00.00] Krystal Cabral MD, [facility] CPT-4: 67715 06/10/2018 87004 EST. PATIENT, LEVEL III Diagnosis: Pain in right knee[ICD10: M25.561] Krystal Cabral MD, [facility] CPT-4: 06258 12/08/2017 ([id number]) PREV VISIT EST AGE 18-39 Diagnosis: Encounter for general adult medical examination without abnormal findings[ICD10: Z00.00] Diagnosis: Essential (primary) hypertension[ICD10: I10] Diagnosis: Impaired fasting glucose[ICD10: R73.01] Diagnosis: Personal history of gestational diabetes[ICD10: Z86.32] Krystal Cabral MD, [facility] CPT-4: 41297 10/13/2016 ([id number]) 90763 EST. PATIENT, LEVEL II Diagnosis: Rash[ICD9: 782.1] [facility] CPT-4: 93439 10/03/2014 ([id number]) 61931 EST. PATIENT, LEVEL III Diagnosis: COUGH[ICD9: 786.2] Diagnosis: FEVER NOS[ICD9: 780.60] Diagnosis: Influenza[ICD9: 487.1] Krystal Cabral MD, [facility] CPT-4: 29401 08/31/2014 ([id number]) Miscellaneous no charge Diagnosis: BENIGN ADDISON SKIN TRUNK[ICD9: 216.5] [facility] CPT-4: 45587 02/21/2014 ([id number]) 22080 EST. PATIENT, LEVEL III Diagnosis: ESSENTIAL HYPERTENSION[SNOMED: 78462137] [facility] CPT-4: 62306 01/17/2014 Office outpatient new 30 minutes Diagnosis: ESSENTIAL HYPERTENSION[SNOMED: 74850997] Diagnosis: Mole of skin[ICD9: 216.9] [facility] CPT-4: 02932 11/14/2013 Plan of Care Planned Activity Notes [...] Patient Education: Patient Medication Summary Completed 06/10/2018 Care Plan: Comp Metabolic Pending 06/10/2018 Care Plan: Cbc With Differential Pending 06/10/2018 Care Plan: Tsh Pending 06/10/2018 Care Plan: Lipid Pending 06/10/2018 Visit Plan: Right knee pain-recommend rest, ice and anti inflammatories as directed-call if symptoms do not resolve and we will order imaging studies. 12/08/2017 Appointment: Krystal Rosales WPtel: [address] [place] [address] (30 min) Complex 12/08/2017 Patient Education: Patient Medication Summary Completed 12/08/2017 Appointment: Bibiana Thomas WPtel: [address] [place] [address] (30 min) Complex 09/29/2017 Visit Plan: Well [...] Hgb A1C 10/13/2016 Appointment: Krystal Rosales WPtel: [address] [place] [address] (15 min) Moderate 10/13/2016 Patient Education: Patient Medication Summary Completed 10/13/2016 Patient Education: Obesity Completed 10/13/2016 Patient Education: Hypertension Completed 10/13/2016 Visit Plan: Rash - RX for ketoconazole given to patient to fill and use on chest wall call if not improving, will need to reschedule the removal of the mole. 10/03/2014 Appointment: Leonor Cabral WPtel: [facility] Surgical Procedure 10/03/2014 Patient Education: Patient [...] Pending 08/31/2014 Appointment: Leonor Cabral WPtel: [facility] Follow up 07/11/2014 Visit Plan: Suture removal-sites clear 02/21/2014 Appointment: Leonor Cabral WPtel: [facility] suture removal 02/21/2014 Patient Education: Patient Medication Summary Completed 02/21/2014 Visit Plan: Wound Instructions - Pt was instructed to keep the wound clean, wash with antibacterial soap, use triple antibiotic ointment, call if redness, pustular drainage, or any other acute concerns. 02/14/2014 Appointment: Leonor Cabral WPtel: [address] [place], [place] [phone] Surgical Procedure 02/14/2014 Patient Education: Patient Medication Summary Completed 02/14/2014 Visit Plan: Hypertension - well controlled - continue with current medications, continue with no added salt diet. Pt has been encouraged to exercise daily. The pt has been advised to call the office if there are any acute concerns about change in blood pressure readings at home. 01/17/2014 Appointment: Krystal Rosales WPtel: [address] [place], [place] [phone] Follow up 01/17/2014 Patient Education: Patient Medication [...] blood pressure readings at home. Moles-monitor for jhqkbnu-jg-vtcdyuoc in 3 months and plan for removal if changing. 11/14/2013 Appointment: Krystal Rosales WPtel: [phone] New Patient 11/14/2013 Patient Education: Patient Medication [...] blood pressure readings at home. Moles-monitor for uokmtia-hn-dfbieadi in 3 months and plan for removal [...]
--- OUTSIDE RECORDS SUMMARY | 2018-11-16 08:56 | XMS REPORT | Continuity of Care Document ---
Author Organization Unknown Address Unknown Allergies Active Description Code Type Severity Reaction Onset Reported/Identified Relationship to Patient Clinical Status Yes clindamycin [id number] Drug Allergy Unknown Hives 08/18/2016 Yes Penicillins [id number] Drug Allergy Unknown rash 08/18/2016 Yes Sulfa (Sulfonamide Antibiotics) [id number] Drug Allergy Unknown N/A 2018 Medications There is no data. Problems Date Dx Coded Attending Type Code Diagnosis Diagnosed By 06/18/2014 AUDRA IVORY, GERTRUDIS Jameson Ot 788.1 06/24/2016 RUSSEL SIMPSON DO Ot O9A.213 INJ/POISN/OTH CONSEQ OF EXTERNAL CAUSES 06/24/2016 RUSSEL SIMPSON DO Ot S39.91XA UNSPECIFIED INJURY OF ABDOMEN, INITIAL E 06/24/2016 TATIANA MATA RUSSEL C Ot W19.XXXA UNSPECIFIED FALL, INITIAL ENCOUNTER 06/24/2016 RUSSEL SIMPSON DO Ot Y92.012 BATHROOM OF SINGLE-FAMILY (PRIVATE) HOUS 06/24/2016 RUSSEL SIMPSON DO Ot Y99.8 OTHER EXTERNAL CAUSE STATUS 06/24/2016 RUSSEL SIMPSON DO Ot Z3A.31 31 WEEKS GESTATION OF 06/30/2016 RUSSEL SIMPSON DO Ot O9A.213 INJ/POISN/OTH CONSEQ OF EXTERNAL CAUSES 06/30/2016 RUSSEL SIMPSON DO Ot S39.91XA UNSPECIFIED INJURY OF ABDOMEN, INITIAL E 06/30/2016 RUSSEL SIMPSON DO Ot W19.XXXA UNSPECIFIED FALL, INITIAL ENCOUNTER 06/30/2016 RUSSEL SIMPSON DO Ot Y92.012 BATHROOM OF SINGLE-FAMILY (PRIVATE) HOUS 06/30/2016 RUSSEL SIMPSON DO Ot Y99.8 OTHER EXTERNAL CAUSE STATUS 06/30/2016 RUSSEL SIMPSON DO Ot Z3A.31 31 WEEKS GESTATION OF 08/14/2016 RUSSEL SIMPSON DO Ot O24.419 GESTATIONAL DIABETES MELLITUS IN PREGNAN 08/14/2016 RUSSEL SIMPSON DO Ot O34.211 MATERN CARE FOR LOW TRANSVERSE SCAR FROM 08/14/2016 RUSSEL SIMPSON DO Ot Z01.818 ENCOUNTER FOR OTHER PREPROCEDURAL EXAMIN 08/14/2016 RUSSEL SIMPSON DO Ot Z11.2 ENCOUNTER FOR SCREENING FOR OTHER BACTER 08/15/2016 RUSSEL SIMPSON DO Ot O24.419 GESTATIONAL DIABETES MELLITUS IN PREGNAN 08/15/2016 RUSSEL SIMPSON DO Ot O34.211 MATERN CARE FOR LOW TRANSVERSE SCAR FROM 08/15/2016 RUSSEL SIMPSON DO Ot Z01.818 ENCOUNTER FOR OTHER PREPROCEDURAL EXAMIN 08/15/2016 RUSSEL SIMPSON DO Ot Z11.2 ENCOUNTER FOR SCREENING FOR OTHER BACTER 08/20/2016 RUSSEL SIMPSON DO Ot D62 ACUTE POSTHEMORRHAGIC ANEMIA 08/20/2016 RUSSEL SIMPSON DO Ot O24.419 GESTATIONAL DIABETES MELLITUS IN PREGNAN 08/20/2016 RUSSEL SIMPSON DO Ot O34.211 MATERN CARE FOR LOW TRANSVERSE SCAR FROM 08/20/2016 RUSSEL SIMPSON DO Ot O41.03X0 OLIGOHYDRAMNIOS, THIRD TRIMESTER, NOT AP 08/20/2016 RUSSEL SIMPSON DO Ot O90.81 ANEMIA OF THE PUERPERIUM 08/20/2016 RUSSEL SIMPSON DO Ot Z37.0 SINGLE LIVE 08/20/2016 RUSSEL SIMPSON DO Ot Z3A.39 39 WEEKS GESTATION OF 01/01/2018 ABEL ASHER BLENDING COORDINATOR Ot M25.561 PAIN IN RIGHT KNEE 01/01/2018 ABEL ASHER BLENDING COORDINATOR Ot M25.561 PAIN IN RIGHT KNEE 01/06/2018 ABEL ASHER BLENDING COORDINATOR Ot M25.561 PAIN IN RIGHT KNEE 01/11/2018 ABEL ASHER BLENDING COORDINATOR Ot M25.561 PAIN IN RIGHT KNEE 01/13/2018 ABEL ASHER BLENDING COORDINATOR Ot M25.861 OTHER SPECIFIED JOINT DISORDERS, RIGHT K 01/21/2018 ABEL SAHER BLENDING COORDINATOR Ot M25.861 OTHER SPECIFIED JOINT DISORDERS, RIGHT K 07/20/2018 ABEL ASHER BLENDING COORDINATOR Ot N39.0 URINARY TRACT INFECTION, SITE NOT SPECIF 08/06/2018 ABEL ASHER BLENDING COORDINATOR Ot N39.0 URINARY TRACT INFECTION, SITE NOT SPECIF 11/04/2018 ABEL ASHER BLENDING COORDINATOR Ot N91.2 AMENORRHEA, UNSPECIFIED 11/04/2018 ABEL ASHER BLENDING COORDINATOR Ot R30.0 DYSURIA 11/11/2018 ABEL ASHER BLENDING COORDINATOR Ot K82.8 OTHER SPECIFIED DISEASES OF GALLBLADDER 11/11/2018 ABEL ASHER BLENDING COORDINATOR Ot R10.9 UNSPECIFIED ABDOMINAL PAIN Procedures Code Description Performed By Performed On [id number] EXTRACTION OF POC, LOW CERVICAL, OPEN AP 08/18/2016 Results Test Result Range Methicillin resistant Staphylococcus aureus (MRSA) screening culture - 14:25 Methicillin resistant Staphylococcus aureus (MRSA) screening culture NEG NRG Complete urinalysis with reflex to culture - 08/18/16 06:00 Urine color determination YELLOW NRG Urine clarity determination SLIGHTLY CLOUDY NRG Urine pH measurement by test strip 6 5-9 Specific gravity of urine by test strip 1.025 1.016- 1.022 Urine protein assay by test strip, semi-quantitative 1+ NEGATIVE Urine glucose detection by automated test strip NEGATIVE NEGATIVE Erythrocytes detection in urine sediment by light microscopy NEGATIVE NEGATIVE Urine ketones detection by automated test strip 3+ NEGATIVE Urine nitrite detection by test strip NEGATIVE NEGATIVE Urine total bilirubin detection by test strip NEGATIVE NEGATIVE Urine urobilinogen measurement by automated test strip (mass/volume) NORMAL NORMAL Urine leukocyte esterase detection by dipstick 1+ NEGATIVE Automated urine sediment erythrocyte count by microscopy (number/high power field) NONE NRG Automated urine sediment leukocyte count by microscopy (number/high power field ) [HPF] NRG Bacteria detection in urine sediment by light microscopy MODERATE NRG Squamous epithelial cells detection in urine sediment by light microscopy 10-25 NRG Crystals detection in urine sediment by light microscopy NONE NRG Casts detection in urine sediment by light microscopy NONE NRG Mucus detection in urine sediment by light microscopy SMALL NRG Complete urinalysis with reflex to culture YES NRG Bacterial urine culture - 08/18/16 06:00 URINE CULTURE RESULTS <10,000/ML NRG Capillary blood glucose measurement by glucometer (mass/volume) - 08/18/16 06: 37 Capillary blood glucose measurement by glucometer (mass/volume) 94 mg/dL 70-110 Complete blood count (CBC) with automated white blood cell (WBC) differential - 08/18/16 06:40 Blood leukocytes automated count (number/volume) 5.4 10*3/uL 4.3-11.0 Blood erythrocytes automated count (number/volume) 4.60 10*6/uL 4.35-5.85 Venous blood hemoglobin measurement (mass/volume) 13.2 g/dL 11.5-16.0 Blood hematocrit (volume fraction) 38 % 35-52 Automated erythrocyte mean corpuscular volume 83 [foz_us] 80-99 Automated erythrocyte mean corpuscular hemoglobin (mass per erythrocyte) 29 pg 25-34 Automated erythrocyte mean corpuscular hemoglobin concentration measurement ( mass/volume) 35 g/dL 32-36 Automated erythrocyte distribution width ratio 13.1 % 10.0-14.5 Automated blood platelet count (count/volume) 255 10*3/uL 130-400 Automated blood platelet mean volume measurement 10.0 [foz_us] 7.4-10.4 Automated blood neutrophils/100 leukocytes 55 % 42-75 Automated blood lymphocytes/100 leukocytes 35 % 12-44 Blood monocytes/100 leukocytes 9 % 0-12 Automated blood eosinophils/100 leukocytes 2 % 0-10 Automated blood basophils/100 leukocytes 0 % 0-10 Blood neutrophils automated count (number/volume) 3.0 10*3 1.8-7.8 Blood lymphocytes automated count (number/volume) 1.9 10*3 1.0-4.0 Blood monocytes automated count (number/volume) 0.5 10*3 0.0-1.0 Automated eosinophil count 0.1 10*3/uL 0.0-0.3 Automated blood basophil count (count/volume) 0.0 10*3/uL 0.0-0.1 Blood type T Indirect antibody screen panel - 08/18/16 06:40 ABO+Rh group AP NRG Transfusion band number [id number] Blood group antibody screen NEGATIVE NR Complete blood count (CBC) with automated white blood cell (WBC) differential - 08/19/16 05:10 Blood leukocytes automated count (number/volume) 6.9 10*3/uL 4.3-11.0 Blood erythrocytes automated count (number/volume) 3.70 10*6/uL 4.35-5.85 Venous blood hemoglobin measurement (mass/volume) 10.6 g/dL 11.5-16.0 Blood hematocrit (volume fraction) 32 % 35-52 Automated erythrocyte mean corpuscular volume 86 [foz_us] 80-99 Automated erythrocyte mean corpuscular hemoglobin (mass per erythrocyte) 29 pg 25-34 Automated erythrocyte mean corpuscular hemoglobin concentration measurement ( mass/volume) 33 g/dL 32-36 Automated erythrocyte distribution width ratio 13.3 % 10.0-14.5 Automated blood platelet count (count/volume) 193 10*3/uL 130-400 Automated blood platelet mean volume measurement 9.9 [foz_us] 7.4-10.4 Automated blood neutrophils/100 leukocytes 69 % 42-75 Automated blood lymphocytes/100 leukocytes 20 % 12-44 Blood monocytes/100 leukocytes 9 % 0-12 Automated blood eosinophils/100 leukocytes 2 % 0-10 Automated blood basophils/100 leukocytes 0 % 0-10 Blood neutrophils automated count (number/volume) 4.7 10*3 1.8-7.8 Blood lymphocytes automated count (number/volume) 1.4 10*3 1.0-4.0 Blood monocytes automated count (number/volume) 0.6 10*3 0.0-1.0 Automated eosinophil count 0.2 10*3/uL 0.0-0.3 Automated blood basophil count (count/volume) 0.0 10*3/uL 0.0-0.1 Capillary blood glucose measurement by glucometer (mass/volume) - 08/19/16 06: 56 Capillary blood glucose measurement by glucometer (mass/volume) 93 mg/dL 70-110 Automated blood complete blood count (hemogram) panel - 07/19/18 09:32 Blood leukocytes automated count (number/volume) 3.1 10*3/uL 4.3-11.0 Blood erythrocytes automated count (number/volume) 4.93 10*6/uL 4.35-5.85 Venous blood hemoglobin measurement (mass/volume) 14.9 g/dL 11.5-16.0 Blood hematocrit (volume fraction) 43 % 35-52 Automated erythrocyte mean corpuscular volume 86 [foz_us] 80-99 Automated erythrocyte mean corpuscular hemoglobin (mass per erythrocyte) 30 pg 25-34 Automated erythrocyte mean corpuscular hemoglobin concentration measurement ( mass/volume) 35 g/dL 32-36 Automated erythrocyte distribution width ratio 12.4 % 10.0-14.5 Automated blood platelet count (count/volume) 211 10*3/uL 130-400 Automated blood platelet mean volume measurement 9.5 [foz_us] 7.4-10.4 Serum or plasma choriogonadotropin ( test) detection - 07/19/18 09:32 Serum or plasma choriogonadotropin ( test) detection NEGATIVE NEGATIVE Comprehensive metabolic panel - 07/19/18 09:32 Serum or plasma sodium measurement (moles/volume) 140 mmol/L 135-145 Serum or plasma potassium measurement (moles/volume) 4.0 mmol/L 3.6-5.0 Serum or plasma chloride measurement (moles/volume) 106 mmol/L 98-107 Carbon dioxide 26 mmol/L 21-32 Serum or plasma anion gap determination (moles/volume) 8 mmol/L 5-14 Serum or plasma urea nitrogen measurement (mass/volume) 15 mg/dL 7-18 Serum or plasma creatinine measurement (mass/volume) 0.81 mg/dL 0.60-1.30 Serum or plasma urea nitrogen/creatinine mass ratio 19 NRG Serum or plasma creatinine measurement with calculation of estimated glomerular filtration rate > NRG Serum or plasma glucose measurement (mass/volume) 64 mg/dL 70-105 Serum or plasma calcium measurement (mass/volume) 9.6 mg/dL 8.5-10.1 Serum or plasma total bilirubin measurement (mass/volume) 0.7 mg/dL 0.1-1.0 Serum or plasma alkaline phosphatase measurement (enzymatic activity/volume) 49 U/L 40-136 Serum or plasma aspartate aminotransferase measurement (enzymatic activity/ volume) 20 U/L 5-34 Serum or plasma alanine aminotransferase measurement (enzymatic activity/volume ) 18 U/L 0-55 Serum or plasma protein measurement (mass/volume) 7.3 g/dL 6.4-8.2 Serum or plasma albumin measurement (mass/volume) 4.6 g/dL 3.2-4.5 Complete urinalysis with reflex to culture - 11/04/18 11:05 Urine color determination YELLOW NRG Urine clarity determination CLEAR NRG Urine pH measurement by test strip 8 5-9 Specific gravity of urine by test strip 1.010 1.016- 1.022 Urine protein assay by test strip, semi-quantitative NEGATIVE NEGATIVE Urine glucose detection by automated test strip NEGATIVE NEGATIVE Erythrocytes detection in urine sediment by light microscopy NEGATIVE NEGATIVE Urine ketones detection by automated test strip NEGATIVE NEGATIVE Urine nitrite detection by test strip NEGATIVE NEGATIVE Urine total bilirubin detection by test strip NEGATIVE NEGATIVE Urine urobilinogen measurement by automated test strip (mass/volume) NORMAL NORMAL Urine leukocyte esterase detection by dipstick 1+ NEGATIVE Automated urine sediment erythrocyte count by microscopy (number/high power field) NONE NRG Automated urine sediment leukocyte count by microscopy (number/high power field ) [HPF] NRG Bacteria detection in urine sediment by light microscopy NEGATIVE NRG Squamous epithelial cells detection in urine sediment by light microscopy 2-5 NRG Crystals detection in urine sediment by light microscopy NONE NRG Casts detection in urine sediment by light microscopy NONE NRG Mucus detection in urine sediment by light microscopy NEGATIVE NRG Complete urinalysis with reflex to culture NO NRG Encounters ACCT No. Visit Date/Time Discharge Status Pt. Type Provider Facility Loc./Unit Complaint [id number] 11/15/2018 07:11:00 11/15/2018 10:58:00 DIS Outpatient MAMIE ARMSTRONG MD [facility] PREOP BILIARY SLUDGE [id number] 11/10/2018 07:35:00 11/10/2018 23:59:59 CLS Outpatient ABEL ASHER [facility] RAD ABDOMINAL PAIN, NAUSEA [id number] 11/04/2018 15:34:00 11/04/2018 23:59:59 CLS Preadmit ABEL ASHER [facility] RAD ABD PAIN,WT LOSS [id number] 11/04/2018 10:09:00 11/04/2018 23:59:59 CLS Outpatient ABEL ASHER BLENDING COORDINATOR [facility] RAD MISSED PERIOD,ABD PAIN [id number] 07/19/2018 09:21:00 07/19/2018 23:59:59 CLS Outpatient ABEL ASHER [facility] RAD R FLANK PAIN,UTI [id number] 01/07/2018 15:32:00 01/07/2018 23:59:59 CLS Outpatient ABEL ASHER BLENDING COORDINATOR [facility] RAD RIGHT KNEE PAIN [id number] 12/31/2017 15:10:00 12/31/2017 23:59:59 CLS Outpatient ABEL ASHER [facility] RAD R KNEE PAIN [id number] 08/18/2016 06:13:00 08/20/2016 11:10:00 DIS Inpatient RUSSEL SIMPSON DO [facility] LDRP PREVIOUS , GESTATIONAL DIABETES [id number] 08/14/2016 14:01:00 08/14/2016 14:30:00 DIS Outpatient RUSSEL SIMPSON DO [facility] PREOP REPEAT , GESTATIONAL DIABETES [id number] 06/24/2016 19:05:00 06/24/2016 20:45:00 DIS Outpatient RUSSEL SIMPSON DO [facility] WSo FALL [id number] 06/18/2014 09:21:00 06/18/2014 12:27:00 DIS Emergency GERTRUDIS ZHU MD [facility] ER [id number] 05/12/2014 08:07:00 05/12/2014 23:59:59 CLS Outpatient [id number] 09/12/2013 13:51:00 09/17/2013 15:27:00 DIS Inpatient [id number] 11/16/2018 08:20:00 ACT [facility]
[2018-11-16] MEDS ORDERED: LEVOFLOXACIN 500 MG/100 ML IV 100 ML IV ONE (09:00)
[2018-11-16] MEDS: LACTATED RINGERS 1,000 ML IV PRN ×2 (09:01→12:50)
[2018-11-16] MEDS ORDERED: BUP/EPI 0.5% 1:200,000 (SENSORCAINE) 30 ML VIAL ONE (09:16)
[2018-11-16] MEDS ORDERED: MIDAZOLAM 2 MG/2 ML (VERSED) VIAL ONE ×2 (09:24→10:28)
[2018-11-16] MEDS ORDERED: MIDAZOLAM 2 MG/2 ML (VERSED) VIAL IV ONE ×2 (09:30→09:45)
--- NOTE | 2018-11-16 10:05 | Progress Note-Pre Operative ---
Pre-Operative Progress Note H&P Reviewed The H&P was reviewed, patient examined and no changes noted. Date Seen by Provider: Nov 16, 2018 Time Seen by Provider: 10:05 Date H&P Reviewed: Nov 16, 2018 Time H&P Reviewed: 10:00 Pre-Operative Diagnosis: Symptomatic Biliary Sludge RADHA BREAUX ALUMINUM HYDROXIDE PROCESS OPERATOR Nov 16, 2018 10:05
[2018-11-16] MEDS ORDERED: HYDR-3812 PO (10:08)
--- NOTE | 2018-11-16 10:09 | Discharge Inst-Surgical ---
D/C Lap Instructions-KIDO New, Converted, or Re-Newed RX: RX on Chart Follow Up Appt in 2 weeks Activity as tolerated No driving for 24 hours No [address] while on pain medications Incentive Spirometry use every 2 hours while awake Regular Diet Symptoms to Report: Fever over 101 degree F, Nausea/Vomiting Infection Signs and Symptoms to report: Increased redness, Foul odor of wound, Increased drainage Bathing instructions: May shower Operative Area Clean/Dry; Keep incision clean/dry If any problems/questions: Contact your physician or go to Emergency Room RADHA BREAUX APRN Nov 16, 2018 10:09
[2018-11-16] MEDS ORDERED: morphine INJ 10 MG/ML 1ML (SYR OR VIAL) IVP PRN (10:15)
[2018-11-16] MEDS ORDERED: ONDANSETRON 4 MG/2 ML (SDV) Z0FRAN IVP PRN ×2 (10:15→13:00)
[2018-11-16] MEDS ORDERED: HYDROcodone/APAP 5 MG/325 MG (LORTAB) TAB PO ONE ×2 (10:15→15:00)
[2018-11-16] MEDS ORDERED: ACETAMINOPHEN 325 MG TABLET PO PRN (10:15)
[2018-11-16] MEDS ORDERED: LIDOCAINE PF 2% 5 ML (XYLOCAINE) VIAL ONE (10:25)
[2018-11-16] MEDS ORDERED: ONDANSETRON 4 MG/2 ML (SDV) Z0FRAN ONE (10:25)
[2018-11-16] MEDS ORDERED: DEXAMETHASONE 10 MG/ML (DECADRON) 1 ML VIAL ONE (10:25)
[2018-11-16] MEDS ORDERED: proPOfol 200 MG/20 ML (DIPRIVAN) VIAL IV ONE (10:25)
[2018-11-16] MEDS ORDERED: SEVOFLURANE (ULTANE) 15 ML INHAL SOLN ONE ×2 (10:25→12:29)
[2018-11-16] MEDS ORDERED: GLYCOPYRROLATE 0.2 MG/ML (ROBINUL) 2 ML VIAL ONE ×2 (10:26→12:50)
[2018-11-16] MEDS ORDERED: NEOSTIGMINE 1 MG/ML 5 ML SYRINGE ONE (10:26)
[2018-11-16] MEDS ORDERED: fentaNYL INJECTION 100 MCG/2 ML AMP ONE ×2 (10:26→11:58)
[2018-11-16] MEDS ORDERED: ROCURONIUM 10 MG/ML 5 ML SYRINGE IV ONE (10:26)
[2018-11-16] MEDS ORDERED: HYDROmorphone 2 MG/ML VIAL (DILAUDID) IV ONE (13:00)
[2018-11-16] MEDS ORDERED: morphine INJ 10 MG/ML 1ML (SYR OR VIAL) IVP ONE (13:00)
--- NOTE | 2018-11-16 13:10 | OPERATIVE REPORT ---
DATE OF SERVICE: 11/16/2018 ATTENDING PRIMARY CARE PHYSICIAN: Dr. Cabral. PREOPERATIVE DIAGNOSIS: Chronic calculous cholecystitis. POSTOPERATIVE DIAGNOSIS: Chronic calculous cholecystitis. PROCEDURE: Laparoscopic cholecystectomy. SURGEON: Mamie Armstrong MD SETTER JUICE PACKAGING MACHINES: Tomás Bernabe APRN ANESTHESIA: General endotracheal. ESTIMATED BLOOD LOSS: Minimal. FINDINGS: Thick bile as well as biliary sludge. DISPOSITION: The patient tolerated the procedure well. INDICATIONS: The patient is a 33-year-old female who has had epigastric pain as well as right upper abdominal quadrant pain since August of this year, which was four months ago. She reports in the past month, this has become much more severe as well as frequent. She states after eating a meal, she would have reflux type of symptoms and then this will be followed by nausea. She would also have crampy pain in the epigastric region as well as right upper abdominal quadrant and would also notice abdominal bloating and diarrhea. She had noticed that after eating foods that were higher in fat content as well as spicy, her symptoms would be worse. An ultrasound was performed, which did show biliary sludge. The patient was brought to the operating room, laid supine on the table. After adequate IV pain and sedative medications and general endotracheal intubation, abdomen was prepped and draped in standard surgical fashion. A 0.5% Marcaine with epinephrine was then used to anesthetize the overlying skin in the left upper abdominal quadrant and a transverse skin incision made using a 15 blade. An 0 silk suture was applied to the medial aspect of the incision for retraction. A Veress needle inserted with low opening pressure of 0 mmHg. The abdomen was insufflated to 15 mmHg pressure. The Veress needle removed and a 5 mm Xcel trocar placed followed by 5 mm 45-degree angle laparoscope visualizing the peritoneal cavity. A 4-quadrant abdominal exploration was performed. There was mild dilatation of the gallbladder what was visualized the liver, stomach, omentum appeared normal. Under direct visualization, we then proceed to place a supraumbilical 10 mm port after the skin and peritoneal lining were anesthetized using 0.5% Marcaine with epinephrine and a transverse skin incision made using a 15 blade. In a similar manner, a right upper abdominal quadrant 5 mm port was placed. The patient was then placed in reverse Trendelenburg position as well as plane right side up, left side down. The hepatoduodenal ligament was then opened using a blunt dissection as well as electrocautery on the hook instrument. The entire critical view of safety was identified including the triangle of Calot as well as the cystic duct and artery as the only two structures going into the gallbladder as well as the cystic plate behind the proximal gallbladder. A timeout was then taken and the cystic duct and artery were then clipped proximally, distally and cut with EndoShears. The gallbladder was then dissected off of the liver bed using cautery on the hook instrument with visualization of good hemostasis as well as no leaking ducts of Luschka. The gallbladder was removed through the 10 mm port site using an EndoCatch bag. The 10 mm port site fascia and peritoneum were then closed under direct visualization using a Jeferson-Dorita device and 0 Vicryl suture. The abdomen was desufflated and remaining ports removed. All skin incisions were closed using 4-0 Monocryl running subcuticular sutures. Wounds were then cleaned and covered with Dermabond. The patient tolerated the procedure well. We will start IV normal pain medication as well as a clear liquid diet. Once she is tolerating clears, has good pain control with oral pain medication and is ambulating well, we will discharge her home. She will also be instructed to do no heavy lifting or exertion for the next two weeks. Job ID: [id number] DocumentID: [id number] Dictated Date: 11/16/2018 12:42:28 Family Physician Date: 11/16/2018 13:09:54 Dictated By: MAMIE ARMSTRONG MD
--- NOTE | 2018-11-16 13:28 | Progress Note-Post Operative ---
Post-Operative Progess Note Surgeon (s)/Sign Painter Apprentice (s) Surgeon MAMIE ARMSTRONG MD Sign Painter Apprentice: fito weathers CAN MARKER Pre-Operative Diagnosis Symptomatic Biliary Sludge Post-Operative Diagnosis symptomatic chronic calculous cholecystitis. Procedure & Operative Findings Date of Procedure 11/16/18 Procedure Performed/Findings laparoscopic cholecystectomy Anesthesia Type GET Estimated Blood Loss Estimated blood loss (mL): minimal Specimens/Packing Specimens Removed gallbladder MAMIE ARMTSRONG MD Nov 16, 2018 13:27
[2018-11-16] MEDS ORDERED: KETOROLAC 30 MG/ML VIAL ONE (13:30)
[2018-11-16] MEDS ORDERED: KETOROLAC 30 MG/ML VIAL IVP ONE (13:45)
[2018-11-16 13:50] VITALS: BP 128/79
[2018-11-16 14:20] VITALS: BP 111/56
[2018-11-16] MEDS ORDERED: HYDROcodone/APAP 5 MG/325 MG (LORTAB) TAB ONE (14:28)
[2018-11-16 14:50] VITALS: BP 114/71
[2018-11-16 15:15] VITALS: BP 114/71
== END 2018-11-16 15:33 | disposition home or self-care (01) ==
LOC: SDC 08:20
PROVIDERS: ATTEND Surgery
DX: K81.1 Chronic cholecystitis (principal)
CPT/HCPCS: 84703; 87081; 94664

== ENCOUNTER → 2019-12-15 | Outpatient (CLI) | payer BC | LOC: LABNPT 15:15 | PROVIDERS: ATTEND Family Medicine | DX: R50.9 Fever, unspecified (principal); R05 Cough; Z20.828 Contact with and (suspected) exposure to other viral communicable diseases | CPT/HCPCS: 87430; 87635; 87804 ==

== ENCOUNTER → 2020-05-01 | Outpatient (CLI) | payer BC ==
--- NOTE | 2020-05-01 18:45 | Diagnostic Imaging Report ---
INDICATION: survey. TECHNIQUE: Multiple real-time grayscale images were obtained over the gravid uterus. FINDINGS: Field gestation is in transverse position, head to the maternal left. Amniotic fluid volume is normal. The placenta is anterior with no abruption or previa. heart rate of 150 BPM. Biometrical measurements are congruent and correlate with an average age 18 weeks 3 days. Sonographic date of confinement is 09/29/2020. IMPRESSION: Field viable IUP measured 18 weeks 3 days in transverse position. No pathological finding identified. Biometrical measurements are as follows: Biparietal 4.09 cm, age 18 weeks 3 days. Head circumference 15.86 cm, age 18 weeks 6 days. Abdominal circumference 12.61 cm, age 18 weeks 2 days. Femur length 2.64 cm, age 18 weeks 1 days. Sonographic estimate age: 18 weeks 3 days. Sonographic estimated date of delivery: 09/29/20. Estimated Weight: 228 gm (+/- 33 gm). LMP percentile: 24%. heart rate: 150 beats per minute. number: 1 of 1. Dictated by: Dictated on workstation # [id number]
== END ==
LOC: RAD 14:30
PROVIDERS: ATTEND Obstetrics & Gynecology
DX: Z34.92 Encounter for supervision of normal pregnancy, unspecified, second trimester (principal); Z3A.18 18 weeks gestation of pregnancy
CPT/HCPCS: 76805

== ENCOUNTER 2020-09-21 01:38 | Inpatient (IN) | payer BC ==
[2020-09-21] VITALS (8 sets, daily range): BP systolic 112–138; BP diastolic 71–96
[~2020-09-21] VITALS: Ht 160 cm; Wt 77.0 kg
[~2020-09-21 01:38] MED LIST changes: +ASCO500T17 PO; +MAGN250T2 PO; +MULT-221 PO; +ZINC50TA58 PO
[2020-09-21] MEDS ORDERED: ceFAZolin 2 GM IV Premixed 50 ML ONE (03:02)
[2020-09-21] MEDS ORDERED: LACTATED RINGERS 1,000 ML IV ONE (03:02)
[2020-09-21] MEDS ORDERED: FAMOTIDINE 20MG/2ML IV (PEPCID) ONE (03:02)
[2020-09-21] MEDS ORDERED: METOCLOPRAMIDE INJ 10 MG/2 ML (REGLAN) ONE (03:02)
[2020-09-21] MEDS ORDERED: CITRIC ACID/SOB CIT (BICITRA) 30 ML UDC ONE (03:02)
[2020-09-21] MEDS ORDERED: CITRIC ACID/SOB CIT (BICITRA) 30 ML UDC PO ONE (06:15)
[2020-09-21] MEDS ORDERED: ceFAZolin 2 GM IV Premixed 50 ML IV ONE (06:15)
[2020-09-21] MEDS ORDERED: LACTATED RINGERS 1,000 ML IV PRN ×2 (06:15)
[2020-09-21] MEDS ORDERED: METOCLOPRAMIDE INJ 10 MG/2 ML (REGLAN) IV ONE (06:15)
[2020-09-21] MEDS ORDERED: FAMOTIDINE 20MG/2ML IV (PEPCID) IV ONE (06:15)
[2020-09-21] MEDS ORDERED: CATHETER FLUSH 10 ML SYR IV PRN (06:15)
[2020-09-21] MEDS ORDERED: ONDANSETRON 4 MG/2 ML (SDV) Z0FRAN ONE (06:34)
[2020-09-21] MEDS ORDERED: OXYTOCIN PRE-MIX DRIP 1,000 ML IV ONE (06:34)
[2020-09-21 06:44] LABS: BASOPHILS % (AUTO) 1 % (0-10); EOSINOPHILS # (AUTO) 0.1 10^3/uL (0.0-0.3); EOSINOPHILS % (AUTO) 2 % (0-10); HEMATOCRIT 39 % (35-52); HEMOGLOBIN 13.5 g/dL (11.5-16.0); LYMPHOCYTES # (AUTO) 1.3 10^3/uL (1.0-4.0); LYMPHOCYTES % (AUTO) 34 % (12-44); MEAN CORPUSCULAR HEMOGLOBIN 31 pg (25-34); MEAN CORPUSCULAR HGB CONC 34 g/dL (32-36); MEAN CORPUSCULAR VOLUME 91 fL (80-99); MEAN PLATELET VOLUME 9.9 fL (9.0-12.2); MONOCYTES # (AUTO) 0.3 10^3/uL (0.0-1.0); MONOCYTES % (AUTO) 8 % (0-12); NEUTROPHILS % (AUTO) 55 % (42-75); PLATELET COUNT 188 10^3/uL (130-400); WHITE BLOOD COUNT 3.7 10^3/uL (4.3-11.0)
[2020-09-21] MEDS ORDERED: fentaNYL INJECTION 100 MCG/2 ML AMP ONE (07:05)
--- NOTE | 2020-09-21 07:29 | History & Physical-OB ---
OB - Chief Complaint & HPI Date/Time Date of Admission: Date of Admission: Sep 21, 2020 at 06:09 Date seen by a Provider: Sep 21, 2020 Time Seen by a Provider: 07:15 Chief Complaint/History OB-Reason for Admission/Chief: Section Hx : 3 Hx Para: 2 Expected Date of Delivery: Sep 28, 2020 Gestational Age in Weeks: 39 Indication for : desires repeat Admission Nurse Assessment Rev: Yes History of Labs GBS neg Allergies and Home Medications Allergies Coded Allergies: Penicillins (Verified Allergy, Unknown, rash, CEPHALOSPORINS OKAY, 09/21/20) Cephalosporins ok Sulfa (Sulfonamide Antibiotics) (Verified Allergy, Unknown, 09/21/20) clindamycin (Verified Allergy, Unknown, Hives, 09/21/20) Home Medications Ascorbic Acid 500 Mg Tablet, 500 MG PO DAILY, (Reported) Magnesium 250 Mg Tablet, 250 MG PO DAILY, (Reported) Multivitamin 1 Each Tablet, 1 EACH PO DAILY, (Reported) [place] 3 Polyunsat Fatty Acids 1,000 Mg Cap, 1,000 MG PO DAILY, (Reported) Zinc 50 Mg Tablet, 50 MG PO DAILY, (Reported) Patient Home Medication List Home Medication List Reviewed: Yes OB - History Hx of Present Care: Yes Ultrasounds: Normal mid trimester US Obstetrical Complications: None Medical Complications: None Delivery History Hx Blood Disorders: No Adverse Rxn to Tranfusion: No Patient Past Medical History n/a Social History/Family History 2nd Hand Smoke Exposure: No Immunizations Tetanus Booster (TDap): Less than 5yrs Date of Influenza Vaccine: Apr 10, 2020 OB - Admission Exam Physical Exam Vitals: Vital Signs 09/21/20 06:15 Temp 36.8 Pulse 74 Resp 18 Pulse Ox 100 O2 Delivery Room Air HEENT: NCAT Heart: Rhythm Normal Lungs: Clear Abdomen: Gravid Extremities: Normal Reflexes: Normal Heart Rate: 130's Accelerations: Accelerations Present Decelerations: No Decelerations Short Term Variability: Present Residential Variability: Average (6-25) Contractions on Admission: >10 Minutes Apart Intensity: Mild Labs Laboratory Tests Test 09/21/20 06:33 Range/Units White Blood Count 3.7 L 4.3-11.0 10^3/uL Red Blood Count 4.33 3.80-5.11 10^6/uL Hemoglobin 13.5 11.5-16.0 g/dL Hematocrit 39 35-52 % Mean Corpuscular Volume 91 80-99 fL Mean Corpuscular Hemoglobin 31 25-34 pg Mean Corpuscular Hemoglobin Concent 34 32-36 g/dL Red Cell Distribution Width 12.1 10.0-14.5 % Platelet Count 188 130-400 10^3/uL Mean Platelet Volume 9.9 9.0-12.2 fL Immature Granulocyte % (Auto) 0 % Neutrophils (%) (Auto) 55 42-75 % Lymphocytes (%) (Auto) 34 12-44 % Monocytes (%) (Auto) 8 0-12 % Eosinophils (%) (Auto) 2 0-10 % Basophils (%) (Auto) 1 0-10 % Neutrophils # (Auto) 2.0 1.8-7.8 10^3/uL Lymphocytes # (Auto) 1.3 1.0-4.0 10^3/uL Monocytes # (Auto) 0.3 0.0-1.0 10^3/uL Eosinophils # (Auto) 0.1 0.0-0.3 10^3/uL Basophils # (Auto) 0.0 0.0-0.1 10^3/uL Immature Granulocyte # (Auto) 0.0 0.0-0.1 10^3/uL OB - Assessment/Plan/Diagnosis Assessment Assessment: section Admission Dx 35 yo @ 39 week IUP Previous x 2 GBS neg Admission Status: Inpatient Order (span 2 midnights) Reason for Inpatient Admission: Repeat Plan Plan: Section PANFILO RODRIGUEZ DO Sep 21, 2020 07:29
[2020-09-21] MEDS ORDERED: ONDANSETRON 4 MG/2 ML (SDV) Z0FRAN IVP PRN (07:30)
[2020-09-21] MEDS ORDERED: TETANUS,DIPTH,PERTUSS P/F (BOOSTRIX) 0.5 ML VIAL IM SCH (07:30)
[2020-09-21] MEDS ORDERED: MEASLES,MUMPS,RUBELLA 1 EA INJ SC SCH (07:30)
--- NOTE | 2020-09-21 07:32 | Discharge Inst-Women's Service ---
Discharge Inst-Women's Serv Depart Medication/Instructions New, Converted or Re-Newed RX: RX on Chart Final Diagnosis POD 2 RLTCS Problems Reviewed?: Yes Consults/Follow Up Additional Follow Up: Yes Orders/Referrals Dr. Moffett in 7-10 days and in 6 weeks Activity Activity: Activity as Tolerated Driving Instructions: No Driving for 1 Week NO SMOKING: NO SMOKING Nothing Inside Vagina: No Douching, No [place], No Tampons Diet Discharge Diet: No Restrictions Symptoms to Report to : Bleeding Excessive, Pain Increased, Fever Over 101 Degrees F, Vaginal Bleeding Increase, Questions/Concerns For Any Problems or Questions: Contact Your Physician Skin/Wound Care Infection Signs and Symptoms: Increased Redness, Foul Odor of Wound, Increased Drainage, Skin Itchy or Has a Rash, Increased Swelling, Temperature Above 101 F Operative Area Clean and Dry: Keep Incision Clean/Dry Stitches/Sherry/Dermabond: Dermabond, Care of Stitches Bathing Instructions: PANFILO Vogel DO Sep 21, 2020 07:32
[2020-09-21] MEDS ORDERED: ACHD5005 PO (07:33)
[2020-09-21] MEDS ORDERED: IBUP-844 PO (07:33)
[2020-09-21] MEDS ORDERED: DCS100C PO (07:33)
[2020-09-21] MEDS ORDERED: BUPIVACAINE 0.5% 30 ML (SENSORCAINE) VIAL ONE ×5 (07:47→08:49)
[2020-09-21] MEDS ORDERED: NALOXONE 0.4 MG/ML 1 ML (NARCAN) VIAL IV PRN (08:30)
[2020-09-21] MEDS ORDERED: ONDANSETRON 4 MG/2 ML (SDV) Z0FRAN IV PRN (08:30)
[2020-09-21] MEDS ORDERED: diphenhydrAMINE 50 MG/ML INJ (BENADRYL) IV PRN (08:30)
[2020-09-21] MEDS: KETOROLAC 30 MG/ML VIAL IV SCH ×3 (09:21→20:46)
[2020-09-21] MEDS: OXYTOCIN PRE-MIX DRIP 500 ML IV SCH ×2 (09:22→10:41)
[2020-09-21] MEDS: DOCUSATE SODIUM 100 MG (COLACE) CAP PO SCH ×2 (10:47→20:46)
[2020-09-21] MEDS: HYDROcodone/APAP 5 MG/325 MG (LORTAB) TAB PO PRN ×2 (12:42→18:45)
--- NOTE | 2020-09-21 13:15 | OPERATIVE REPORT ---
DATE OF SERVICE: PREOPERATIVE DIAGNOSES: 1. A 35-year-old G3, P2 at 39 weeks gestation. 2. Previous section x2. 3. Umbilical hernia. POSTOPERATIVE DIAGNOSES: 1. A 35-year-old G3, P2 at 39 weeks gestation. 2. Previous section x2. 3. Umbilical hernia. PROCEDURES: 1. Repeat low transverse section. 2. Repair of umbilical hernia. SURGEON: Jarrod Rodriguez DO MANAGER OF PROCUREMENT: Bambi Burns DNP, who was necessary for manipulation and retraction throughout the procedure. ANESTHESIA: Spinal. ESTIMATED BLOOD LOSS: 500 mL. URINE OUTPUT: 300 mL clear at the end of procedure. FLUIDS: 850 mL. FINDINGS: A live female weighing 5 pounds 14 ounces, Apgars of 8 and 8. Grossly normal appearing fallopian tubes, bilateral ovaries with a posterior serosal fibroid noted on visual inspection, approximately 3 x 3 cm. SPECIMEN SENT: None. INDICATIONS FOR PROCEDURE: This 35-year-old female is a patient who had sought care in my office. Her was uncomplicated with the exception of a ventral umbilical hernia that was identified and inspected by general surgery earlier in her care, who recommended possible repair if able to repairing at time of . I discussed with the patient the approach of a and the possibility of me not being able to repair it. However, if I could identify the hernia and reapproximate it, I would. She was agreeable with this. Risk of the procedure was discussed with the patient in detail including the including risk of bleeding, infection, damage to surrounding structures including, but not limited to bowel, bladder, ureter, kidneys, possible need for operation, postoperative complications that may occur, risk from anesthesia and even . After everything was discussed with the patient in detail and all of her questions were answered, consent was obtained, the patient was taken to the operating room. OPERATIVE REPORT IN DETAIL: Once in the operating room, spinal analgesia was found to be adequate. She was placed in the supine position with leftward tilt, prepped and draped in normal sterile fashion where a timeout was performed and anesthesia was tested. I then make a Pfannenstiel skin incision through the previously existing scar using knife and carried down to the underlying fascia using Bovie cautery. The fascial incision was extended laterally using Bovie cautery. Superior aspect of fascial incision was then grasped with Perry clamps, tented up and dissected off the underlying rectus muscles. The inferior aspect of fascial incision was then grasped with Perry clamps, tented up and dissected off the underlying rectus muscles. The rectus muscles were dissected down the midline using blunt traction, which exposed the peritoneum, which I entered bluntly and extended using blunt traction. An Dany ring retractor was placed within the peritoneal incision, which offers excellent lateral sidewall retraction. I then identified the lower uterine segment, which was found to be thinned out and make a low transverse incision to the vesicouterine peritoneum and bluntly dissected off the lower uterine segment, creating a bladder flap. I then proceeded with my myotomy until membranes were visualized, at which point I extended the uterine incision laterally and superiorly using bandage scissors. Amniotomy was performed in the process of doing this, clear fluid was noted. The was found in vertex presentation. With gentle fundal pressure, the 's head is elevated up to the incision where it was delivered through the incision. The nares and oropharynx were then bulb suctioned. Anterior and posterior shoulders were delivered. The infant was then brought to the operative field where the cord was doubly clamped and cut and infant was handed off to waiting nurses in attendance. Cord banking blood was collected from the umbilical cord and a segment of the cord was collected and sent with the cord banking kit. Intact placenta with three-vessel cord is then delivered spontaneously thereafter. IV Pitocin was initiated to facilitate uterine contraction. Uterine fundus confirmed by bimanual massage. The uterus was then exteriorized and cleared of all endometrial clots and debris. I then proceeded with closing the uterine incision using 0 Vicryl suture in a running locked fashion. A second layer of imbricating 0 Monocryl was placed. Excellent hemostasis was noted after doing this. I then placed the uterus back within the pelvis and copiously irrigated the pelvis using normal saline. Once again, there was no active bleeding noted from any of my dissection planes. I placed Interceed antiadhesive over my low transverse incision. I removed the Dany ring retractor and able to identify the umbilical hernia within visual inspection of my Pfannenstiel incision. I identified the margins of the umbilical hernia about the size of 2 cm diameter gap at the umbilicus. The fascia of this gap was then reapproximated using interrupted [id number] 0 Vicryl suture. Once it is deemed close and I can no longer identify it with palpation, I then removed all the other instruments from the patient's abdominal cavity. Sponge and lap count was correct. I then proceeded with closing the peritoneum using 3-0 Vicryl suture in a running fashion. The rectus muscle reapproximated using 3-0 Vicryl suture in interrupted fashion. The fascia was reapproximated using 0 Vicryl suture in a running fashion. Subcutaneous tissue was reapproximated using 3-0 plain interrupted subcutaneous stitch and skin reapproximated using 4-0 Monocryl running subcuticular. Dermabond was applied to incision and sterile dressing with adhesive white tape. The patient tolerated the procedure well and was taken to recovery area in stable condition. Lap and sponge counts were correct at the end of procedure. Instrument counts correct as well. Two grams of Ancef given preoperatively for infection prophylaxis. Job ID: [id number] DocumentID: [id number] Dictated Date: 09/21/2020 08:42:53 Fur Weigher Date: 09/21/2020 13:15:19 Dictated By: JARROD RODRIGUEZ DO
[2020-09-21] MEDS ORDERED: CATHETER FLUSH 10 ML SYR IV SCH (14:00)
[2020-09-21] MEDS ORDERED: SIMETHICONE 80 MG (MYLICON) CHEW ONE (23:26)
[2020-09-21] MEDS ORDERED: SIMETHICONE 80 MG (MYLICON) CHEW PO ONE (23:30)
[2020-09-22 01:00] VITALS: BP 137/93
[2020-09-22] MEDS: HYDROcodone/APAP 5 MG/325 MG (LORTAB) TAB PO PRN ×4 (01:08→19:12)
[2020-09-22] MEDS: KETOROLAC 30 MG/ML VIAL IV SCH (03:47)
[2020-09-22 05:15] VITALS: BP 130/89
[2020-09-22 06:16] LABS: BASOPHILS % (AUTO) 0 % (0-10); EOSINOPHILS # (AUTO) 0.1 10^3/uL (0.0-0.3); EOSINOPHILS % (AUTO) 1 % (0-10); HEMATOCRIT 33 % (35-52); HEMOGLOBIN 11.2 g/dL (11.5-16.0); LYMPHOCYTES % (AUTO) 16 % (12-44); MEAN CORPUSCULAR HEMOGLOBIN 31 pg (25-34); MEAN CORPUSCULAR HGB CONC 34 g/dL (32-36); MEAN CORPUSCULAR VOLUME 91 fL (80-99); MEAN PLATELET VOLUME 10.1 fL (9.0-12.2); MONOCYTES # (AUTO) 0.3 10^3/uL (0.0-1.0); MONOCYTES % (AUTO) 5 % (0-12); NEUTROPHILS # (AUTO) 4.7 10^3/uL (1.8-7.8); NEUTROPHILS % (AUTO) 77 % (42-75); PLATELET COUNT 175 10^3/uL (130-400); WHITE BLOOD COUNT 6.2 10^3/uL (4.3-11.0)
[2020-09-22] MEDS: DOCUSATE SODIUM 100 MG (COLACE) CAP PO SCH ×2 (08:04→19:12)
[2020-09-22 08:05] VITALS: BP 130/91
--- NOTE | 2020-09-22 09:37 | Postpartum Progress Note ---
Post Op Post-operative Day #1 s/p RLTCS and umbilical hernia repair Rounding for Dr. Moffett Cannot locate current Rubella status and it does not appear to have been done this . She was, however, rubella I in 2017 with her last . Subjective: Patient is without complaints. Ambulating, voiding after toure removed. Tolerating a regular diet without nausea or vomiting. Normal lochia. Pain is well controlled with oral pain medications. Though the umbilical hernia is more painful than she was expecting. Passing flatus. breast feeding. Objective: 09/22/20 09/22/20 01:00 05:15 Temp 36.8 36.7 Pulse 55 72 Resp 16 18 B/P (MAP) 137/93 (108) 130/89 (103) Pulse Ox 98 100 O2 Delivery Room Air Room Air Laboratory Tests Test 09/22/20 05:40 Range/Units White Blood Count 6.2 4.3-11.0 10^3/uL Red Blood Count 3.57 L 3.80-5.11 10^6/uL Hemoglobin 11.2 L 11.5-16.0 g/dL Hematocrit 33 L 35-52 % Mean Corpuscular Volume 91 80-99 fL Mean Corpuscular Hemoglobin 31 25-34 pg Mean Corpuscular Hemoglobin Concent 34 32-36 g/dL Red Cell Distribution Width 12.3 10.0-14.5 % Platelet Count 175 130-400 10^3/uL Mean Platelet Volume 10.1 9.0-12.2 fL Immature Granulocyte % (Auto) 0 % Neutrophils (%) (Auto) 77 H 42-75 % Lymphocytes (%) (Auto) 16 12-44 % Monocytes (%) (Auto) 5 0-12 % Eosinophils (%) (Auto) 1 0-10 % Basophils (%) (Auto) 0 0-10 % Neutrophils # (Auto) 4.7 1.8-7.8 10^3/uL Lymphocytes # (Auto) 1.0 1.0-4.0 10^3/uL Monocytes # (Auto) 0.3 0.0-1.0 10^3/uL Eosinophils # (Auto) 0.1 0.0-0.3 10^3/uL Basophils # (Auto) 0.0 0.0-0.1 10^3/uL Immature Granulocyte # (Auto) 0.0 0.0-0.1 10^3/uL Physical Exam: General - Alert and oriented, no apparent distress Abdomen - Soft, appropriately tender to palpation, non-distended, fundus firm at umbilicus Incision - clean, dry and intact; no erythema or induration, no drainage Extremities - no edema, negative Rosa's bilaterally Assessment: 1. post-operative day # 1, status post RLTCS, umbilical hernia repair. Recovering well, hemodynamically stable Plan: Routine post-operative care. Encourage breast feeding. Encourage ambulation. VTE prophylaxis: SCDs. Abdominal binder Plan for discharge tomorrow Vitals - Labs Vital Signs - I&O Vital Signs Date Time Temp Pulse Resp B/P (MAP) Pulse Ox O2 Delivery O2 Flow Rate FiO2 09/22/20 05:15 36.7 72 18 130/89 (103) 100 Room Air 09/22/20 01:00 36.8 55 16 137/93 (108) 98 Room Air 09/21/20 20:46 36.8 62 20 124/71 (88) 99 Room Air 09/21/20 16:08 36.6 75 18 122/78 (93) 99 Room Air 09/21/20 12:02 36.6 69 18 134/74 (94) 99 Room Air 09/21/20 09:38 Room Air 09/21/20 09:38 37.0 16 112/85 (94) 100 Room Air I & O 09/22/20 07:00 Intake Total 3500 ml Output Total 2800 ml Balance 700 ml Labs Laboratory Tests 09/22/20 05:40: White Blood Count 6.2, Red Blood Count 3.57L, Hemoglobin 11.2L, Hematocrit 33L, Mean Corpuscular Volume 91, Mean Corpuscular Hemoglobin 31, Mean Corpuscular Hemoglobin Concent 34, Red Cell Distribution Width 12.3, Platelet Count 175, Mean Platelet Volume 10.1, Immature Granulocyte % (Auto) 0, Neutrophils (%) (Auto) 77H, Lymphocytes (%) (Auto) 16, Monocytes (%) (Auto) 5, Eosinophils (%) (Auto) 1, Basophils (%) (Auto) 0, Neutrophils # (Auto) 4.7, Lymphocytes # (Auto) 1.0, Monocytes # (Auto) 0.3, Eosinophils # (Auto) 0.1, Basophils # (Auto) 0.0, Immature Granulocyte # (Auto) 0.0 Microbiology 09/21/20 MRSA Screen - Final, Complete MRSA not isolated RUSSEL SIMPSON DO Sep 22, 2020 09:37
[2020-09-22] MEDS: IBUPROFEN 600 MG (MOTRIN) TAB PO SCH ×3 (10:43→23:34)
--- NOTE | 2020-09-22 12:30 | Anesthesia-Regional Post-Op ---
Regional Patient Condition Mental Status: Alert, Oriented x3 Circulation: Same as Pre-Op Headache: Absent Sensation: Full Recovery Motor Block: Absent Post Op Complications Complications None Follow Up Care/Instructions Patient Instructions None needed. Anesthesia/Patient Condition Patient is doing well, no complaints, stable vital signs, no apparent adverse anesthesia problems. No complications reported per nursing. D/[place] [facility] [place] Criteria: KELLIE Christensen CRNA Sep 22, 2020 12:30
[2020-09-22 13:40] VITALS: BP 142/95
[2020-09-22 16:49] VITALS: BP 143/84
[2020-09-22 23:30] VITALS: BP 130/80
[2020-09-23] MEDS: HYDROcodone/APAP 5 MG/325 MG (LORTAB) TAB PO PRN ×2 (02:10→08:44)
[2020-09-23] MEDS: IBUPROFEN 600 MG (MOTRIN) TAB PO SCH ×2 (05:16→10:43)
[2020-09-23 05:17] VITALS: BP 140/91
[2020-09-23] MEDS ORDERED: MILK OF MAGNESIA 400 MG/5 ML 30 ML UDC PO PRN (07:45)
--- NOTE | 2020-09-23 09:19 | Postpartum Progress Note ---
Note Note Day # 2 Subjective: Patient is without complaints. Ambulating, voiding. Tolerating a regular diet without nausea or vomiting. Normal lochia. Pain is well controlled with oral pain medications. Objective: Physical Exam: General - Alert and oriented, no apparent distress Abdomen - Soft, appropriately tender to palpation, non-distended, fundus firm at umbilicus Extremities - no edema, negative Rosa's bilaterally Incision- c/d/i Assessment: POD 2 RLTCS Umbilical hernia repair Plan: Routine care. Encourage breast feeding. Encourage ambulation. Ferrous sulfate supplementation. Plan for discharge today Vitals - Labs Vital Signs - I&O Vital Signs Date Time Temp Pulse Resp B/P (MAP) Pulse Ox O2 Delivery O2 Flow Rate FiO2 09/23/20 05:17 37.1 81 18 140/91 (107) 99 09/22/20 23:30 36.9 75 18 130/80 (97) 97 09/22/20 16:49 36.5 56 16 143/84 (103) 100 09/22/20 13:40 37.2 115 16 142/95 (111) 100 Room Air Labs Microbiology 09/21/20 MRSA Screen - Final, Complete MRSA not isolated PANFILO RODRIGUEZ DO Sep 23, 2020 09:19
[2020-09-23] MEDS: DOCUSATE SODIUM 100 MG (COLACE) CAP PO SCH (10:43)
[2020-09-23 10:45] VITALS: BP 141/94
== END 2020-09-23 11:50 | disposition home or self-care (01) | DRG 788 ==
LOC: LDRP 06:09
PROVIDERS: ADMIT Obstetrics & Gynecology; ATTEND Obstetrics & Gynecology
PROC: 0WQF0ZZ Repair Abdominal Wall, Open Approach (ICD-10-PCS; 2020-09-21)
PROC: 10D00Z1 Extraction of Products of Conception, Low, Open Approach (ICD-10-PCS; principal; 2020-09-21 07:19)
DX: O34.211 Maternal care for low transverse scar from previous cesarean delivery (principal); Z3A.39 39 weeks gestation of pregnancy; Z37.0 Single live birth; K42.9 Umbilical hernia without obstruction or gangrene; O99.62 Diseases of the digestive system complicating childbirth
CPT/HCPCS: 36415; 85025; 86850; 86900; 86901; 87081